=== PATIENT | male | born 1950 | race Caucasian/White ===

== ENCOUNTER 2023-05-09 14:00 | Outpatient (CLI) | payer MEDICARE, BC, SELFPAY | END 2023-05-09 14:01 | disposition home or self-care (01) | LOC: NFLDREF 05-15 10:21 | PROVIDERS: PCP Family Medicine; Referring Provider Family Medicine; Visit Provider Orthopaedic Surgery Sports Medicine | DX: M25.561 Pain in right knee (principal); M17.11 Unilateral primary osteoarthritis, right knee; Z96.652 Presence of left artificial knee joint; M21.41 Flat foot [pes planus] (acquired), right foot | CPT/HCPCS: 86039; 86140; 86200; 86431 ==

== ENCOUNTER 2023-06-20 08:46 | Outpatient (CLI) | payer MEDICARE, BC, SELFPAY ==
--- NOTE | 2023-06-20 09:00 | CRLHL7_ITS ---
For Patients: As a result of the Century Cures Act, medical imaging exams and procedure reports are released immediately into your electronic medical record. You may view this report before your referring provider. If you have questions, please contact your health care provider. INDICATION: LEFT KNEE PAIN. HX LEFT KNEE ARTHROPLASTY RT TKA SCHEDULED FOR 08-05-2023 TECHNIQUE: 27.2 mCi [id number] IV administered. Immediate, blood pool and delayed imaging of the kidneys performed. COMPARISON: 05/09/2023 and 12/11/2018 plain films FINDINGS: There is photopenia from left total knee arthroplasty. Mild physiologic stress uptake about the femoral and tibial components without evidence of loosening or infection. Degenerative uptake about the medial and patellofemoral compartments of the right knee. Additional degenerative uptake about the proximal tibia/fibula articulation on the right. Incidental focus of uptake within the right proximal tibial diaphysis at the lateral aspect. No radiographic correlate of this finding. IMPRESSION: The left total knee arthroplasty is intact without fracture, loosening or infection. Medial and patellofemoral compartment degenerative uptake right knee. Dictated by Jose Castellon MD @ 06/20/2023 1:38:50 PM (Electronically Signed)
== END 2023-06-20 08:47 | disposition home or self-care (01) ==
PROVIDERS: PCP Family Medicine; Visit Provider Orthopaedic Surgery Sports Medicine
DX: M25.562 Pain in left knee (principal); Z96.652 Presence of left artificial knee joint
CPT/HCPCS: 78315; A9503

== ENCOUNTER 2023-08-05 06:58 | Day surgery (SDC) | payer MEDICARE, BC, SELFPAY ==
[2023-08-05] VITALS (26 sets, daily range): BP systolic 101–122; BP diastolic 57–80; PULSE 49–77; RESP 12–18; TEMP 36–36.9; O2SAT 95–99; BMI 34.4
--- OUTSIDE RECORDS SUMMARY | 2023-08-05 07:01 | XMS_ITS | Continuity of Care Document ---
Author Name Unknown Organization [facility] Address [address] [place] [address] Phone Care Team Providers Care Transition Teacher Name Role Phone Sesar Rodgers MD Unavailable Unavailable Allergies, Adverse Reactions, Alerts Substance Reaction Status Criticality No Known Allergies Active No Inform ation Medications Medication Instructions Dosage Effective Dates (start - stop) Status Comments LISINOPRIL (unknown strength) Not Available - Active Procedures Procedure Date Office/Outpatient Visit,Est, Mod 2022 Office/Outpatient Visit,Est, Low 2021 Postop Followup Visit PSF, Lumbar - PA PSF - Additional Level(s) - PA 22 Lami, Facetectomy/Foraminotomy, Lumbar ( Stenosis) Reinsertion of Instrumentation - PA PSF, Lumbar PSF - Additional Level(s) Lami, Facetectomy/Foraminotomy, Lumbar ( Stenosis) Reinsertion of Instrumentation Allograft, Morcelized, and/or BMP Office/Outpatient Visit,Est, Mod 2021 Office/Outpatient Visit,Est, Mod 2020 Office/Outpatient Visit,Est, Mod 2020 Office/Outpatient Visit,Est, Mod 2020 Postop Followup Visit PSF, Lumbar - PA PSF - Additional Level(s) - PA 21 Lami, Facetectomy/Foraminotomy, Lumbar ( Stenosis) Lami, Facetectomy/Foraminotomy - Additio nal Level(s) - PA Posterior Instrumentation, 3-6 Segments - PA PSF, Lumbar PSF - Additional Level(s) Lami, Facetectomy/Foraminotomy, Lumbar ( Stenosis) Lami, Facetectomy/Foraminotomy - Additio nal Level(s) Posterior Instrumentation, 3-6 Segments Office/Outpatient Visit,[facility], [facility] 2020 Office/Outpatient Visit,[facility], Mod 2014 Advance Directives Directive Yes / No Effective Date File Name No Information Encounters Encounter Description Practice Location Reason(s) For Visit Diagnoses Date Provider Providers Copied on Encounter Office/Outpa tient Visit,Est, Mod [facility], [address], [place], [place], [id number] , [place] tel:[phone] [facility] Arthrodesis status 3 Ana Maria Kaba. [facility] [place], [address] [place] [address], [id number], [place]. tel:[phone] Referring Provider: Cory Long, [facility] [address] [place] [address], [address]. tel:[phone] Office/Outpa tient Visit,Est, Low [facility], [address], [facility] [place], [id number] , [place] tel:[phone] [facility] Arthrodesis status 2 Ana Maria Kaba. [facility] [place], [address] [place] [address], [id number], [place]. tel:[phone] Referring Provider: Cory Long, [facility] [address] [place], [address]. tel:[phone] [facility], [address], [place], [id number] , [place] [phone] [facility] Encounter for other specified surgical aftercare 2 Jovany Ballesteros. [facility] [place], [address], [address], [place]. tel:[phone] Referring Provider: Cory Long, [facility] [address] [facility], [place], [address]. tel:[phone] [facility], [address], [place], [place], [id number] , [place] tel:[phone] [facility] No Information 2 Jovany Ballesteros. [facility] [place], [address] [facility] [address], [place], [address], [place]. tel:[phone] Referring Provider: Cory Long, [facility] [address] [facility], [place], [address]. tel:[phone] [facility], [address], [place], [place], [id number] , [place] tel:[phone] [facility] No Information 2 Ana Maria Kaba. [facility] [place], [address] [place], [address], [id number], [place]. tel:[phone] Referring Provider: Cory Long, [facility] [address] [facility], [place], [address]. tel:[phone] Office/Outpa tient Visit,Est, Mod [facility], [address], [place], [place], [id number] , [place] tel:[phone] [facility] Spinal stenosis, lumbar region with neurogenic claudication 2 Ana Maria Kaab. [facility] [place], [address] [place], [address], [id number], [place]. tel:[phone] Referring Provider: Cory Long, [facility] [address] [facility], [place], [address]. tel:[phone] Office/Outpa tient Visit,Est, Mod [facility], [address], [place], [place], [id number] , [place] tel: [phone] [facility] Arthrodesis statusSpinal stenosis, lumbar region with neurogenic claudication 1 Ana Maria Sesar. [facility], [facility] [address], [place], [place], [id number], [place]. [phone] Referring Provider: Cory Long, [facility] [address], [place], [address]. [phone] Office/Outpa tient Visit,Est, Mod [facility], [address], [place], [place], [id number] , [place] tel: [phone] [facility] Arthrodesis status 1 Ana Maria Kaba. [facility], [address] [place], [address], [place], [place], [id number], [place]. [phone] Referring Provider: Cory Long, [facility] [address], [place], [address]. [phone] Office/Outpa tient Visit,Est, Mod [facility], [address], [place], [id number] , [place] tel: [phone] [facility] No Information 1 Ana Maria Sesar. [facility] [place], [facility] [address], [facility] [address], [place], [place], [id number], [place]. tel:[phone] Referring Provider: Cory Long, [facility] [address], [place], [address]. [phone] [facility], [address], [place], [id number] , [place] tel: [phone] [facility] Arthrodesis status 1 No Information Referring Provider: Cory Long, [facility] [address], [place], [address]. tel:[phone] [facility], [address], [place], [id number] , [place] tel: [phone] [facility] No Information No Information Referring Provider: Cory Long, [facility] [address] [facility], [place], [address]. tel:[phone] [facility], [address], [place], [place], [id number] , [place] tel:[phone] [facility] No Information Ana Maria Kaba. [facility] [place], [address] [place] [address], [address], [id number], [place]. tel:[phone] Referring Provider: Cory Long, [facility] [address] [facility], [place], [address]. tel:[phone] Office/Outpa tient Visit,New, Mod [facility], [address], [place], [place], [id number] , [place] tel:[phone] [facility] No Information 1 Ana Maria Kaba. [facility] [place], [address] [place] [address], [address], [id number], [place]. tel:[phone] Referring Provider: Cory Long, [facility] [address] [facility], [place], [address]. tel:[phone] Office/Outpa tient Visit,New, Mod [facility], [address], [place], [place], [id number] , [place] tel:[phone] [facility] Spondylosis of unspecified site [facility] of [facility] 5 Ana Maria Kaba. [facility] [place], [address] [place] [address], [address], [id number], [place]. tel:[phone] Referring Provider: Henrry Joseph, [facility] [address] [facility], [place], [address]. tel:[phone] Family History Family Member Type Diagnosis Age At Onset Problem (finding) Payers Payer name Insurance type Covered [place] [id number] Medicare [facility] [id number] 1 Social History Type Description Quantity Date Captured Comments Alcohol Use Details Unknown Caffeine Use Details Unknown Tobacco Use Status No Information Smoking Status No Information Sex Male Vital Signs Date / Time: Height Weight BMI Pulse Rate Blood Pressure Temperature Respiratory Rate Body Surface Area Head Circumference Head Circ. Percentile Wt./Matias. Percentile BMI percentile Pulse Ox Inhaled Ox 3:26 PM 66.50 in 97.522 kg (215.00 lbs) 34.1 8 kg/m eter (2) Chief Complaint And Reason For Visit No Information Reason For Referral Reason For Referral No Information Plan Of Treatment Date Type Action Status Future Order: Radiology Order F/ E Lumbar (F/ELumb), Ordered on: Ordered Future Order: Radiology Order Pe lvis 1 Or 2 Views (pelvis), Ordered on: Ordered Future Order: Radiology Order AP Lateral Lumbar (APLatLumb), Ordered on: Ordered History Of Present Illness Encounter Date Complaint History Of Prese nt Illness No Information Functional Status Date Functional Assessmen t No Information Instructions Date Instruction Additional Infor mation Weight Management Related to Ove rweight Assessments Type Assessment Date No Information Patient Care Teams Name Effective Dates (start - stop) Status Members No Information
--- OUTSIDE RECORDS SUMMARY | 2023-08-05 07:02 | XMS_ITS | Continuity of Care Document ---
Author Name Unknown Organization [facility] Address [address] [place] [address] Phone Care Team Providers Care Lump Machine Operator Name Role Phone Sesar Rodgers MD Unavailable [...] nal Level(s) Posterior Instrumentation, 3-6 Segments Office/Outpatient Visit,[facility], [facility] [place] Office/Outpatient Visit,[facility], Mod 2014 Advance Directives Directive Yes / No Effective Date File Name No Information Encounters Encounter Description Practice Location Reason(s) For Visit Diagnoses Date Provider Providers Copied on Encounter Office/Outpa tient Visit,Est, Mod [facility], [address], [place], [place], [id number] , [place] tel:[phone] [facility] Arthrodesis status 3 Ana Maria Kaba. [facility] [place], [address] [place] [address], [id number], [place]. tel:[phone] Referring Provider: Cory Long, [facility] [address] [place] [address], [address]. tel:[phone] Office/Outpa tient Visit,Est, Low [facility], [address], [facility], [id number] , [place] tel:[phone] [facility] Arthrodesis status 2 Ana Maria Kaba. [facility] [place], [address] [place] [address], [id number], [place]. tel:[phone] Referring Provider: Cory Long, [facility] [address] [place], [address]. tel:[phone] [facility], [address], [place], [id number] , [place] [phone] [facility] Encounter for other specified surgical aftercare 2 Jovany Ballesteros. [facility] [place], [address], [address], [place]. tel:[phone] Referring Provider: Cory Long, [facility] [address] [facility], [place], [address]. tel:[phone] [facility], [address], [place], [place], [id number] , [place] tel:[phone] [facility] No Information 2 Jovany Ballesteros. [facility] [place], [address] [facility] [address], [place], [address], [place]. tel:[phone] Referring Provider: Cory Long, [facility] [address] [facility], [place], [address]. tel:[phone] [facility], [address], [place], [place], [id number] , [place] tel:[phone] [facility] No Information 2 Ana Maria Kaba. [facility] [place], [address] [place], [address], [id number], [place]. tel:[phone] Referring Provider: Cory Long, [facility] [address] [facility], [place], [address]. tel:[phone] Office/Outpa tient Visit,Est, Mod [facility], [address], [place], [place], [id number] , [place] tel:[phone] [facility] Spinal stenosis, lumbar region with neurogenic claudication 2 Ana Maria Kaba. [facility] [place], [address] [place], [address], [id number], [place]. tel:[phone] Referring Provider: Cory Long, [facility] [address] [facility], [place], [address]. tel:[phone] Office/Outpa tient Visit,Est, Mod [facility], [address], [place], [place], [id number] , [place] tel: [phone] [facility] Arthrodesis statusSpinal stenosis, lumbar region with neurogenic claudication 1 Ana Maria Sesar. [facility], [facility] [address], [address], [place], [place], [id number], [place]. [phone] Referring Provider: Cory Long, [facility] [address], [place], [address]. [phone] Office/Outpa tient Visit,Est, Mod [facility], [address], [place], [id number] , [place] tel: [phone] [facility] Arthrodesis status 1 Ana Maria Kaba. [facility], [address] [place], [address], [place], [place], [id number], [place]. [phone] Referring Provider: Cory Long, [facility] [address], [place], [address]. [phone] Office/Outpa tient Visit,Est, Mod [facility], [address], [place], [id number] , [place] tel: [phone] [facility] No Information 1 Ana Maria Sesar. [facility] [place], [facility] [address], [facility] [address], [place], [place], [id number], [place]. tel:[phone] Referring Provider: Cory Long, [facility] [address], [place], [address]. tel:[phone] [facility], [address], [place], [id number] , [place] tel: [phone] [facility] Arthrodesis status 1 No Information Referring Provider: Cory Long, [facility] [address], [place], [address]. tel:[phone] [facility], [address], [place], [id number] , [place] tel: [phone] [facility] No Information No Information Referring Provider: Cory Long, [facility] [address] [facility], [place], [address]. tel:[phone] [facility], [address], [place], [place], [id number] , [place] tel:[phone] [facility] No Information Ana Maria Kaba. [facility] [place], [address] [place] [address], [address], [id number], [place]. tel:[phone] Referring Provider: Cory Long, [facility] [address] [facility], [place], [address]. tel:[phone] Office/Outpa tient Visit,New, Mod [facility], [address], [place], [place], [id number] , [place] tel:[phone] [facility] No Information 1 Ana Maria Kaba. [facility] [place], [address] [place] [address], [address], [id number], [place]. tel:[phone] Referring Provider: Cory Long, [facility] [address] [facility], [place], [address]. tel:[phone] Office/Outpa tient Visit,New, Mod [facility], [address], [place], [place], [id number] , [place] tel:[phone] [facility] Spondylosis of unspecified site [facility] of [facility] 5 Ana Maria Kaba. [facility] [place], [address] [place] [address], [address], [id number], [place]. tel:[phone] Referring Provider: Henrry Joseph, [facility] [address] [facility], [place], [address]. tel:[phone] Family History Family Member Type Diagnosis Age At Onset Problem (finding) Payers Payer name Insurance type Covered [place] [id number] Medicare [facility] [id number] 1 Social History Type Description Quantity Date [...]
--- NOTE | 2023-08-05 07:39 | W.PM.H&PU ---
History & Physical Update History & Physical Update H&P Reviewed and patient assessed: No changes noted
--- NOTE | 2023-08-05 07:41 | CRLHL7_ITS ---
For Patients: As a result of the Cures Act, medical imaging exams and procedure reports are released immediately into your electronic medical record. You may view this report before your referring provider. If you have questions, please contact your health care provider. Indication: post op Technique: Two views right knee Findings/Impression: Hardware from a right total knee arthroplasty is in satisfactory position. Bone alignment is normal. No sign of acute fracture. Postop changes are within normal limits. Dictated by Jose Castellon MD @ 08/05/2023 1:33:17 PM (Electronically Signed)
[2023-08-05] MEDS: ACETAMINOPHEN 500 MG TABLET 1000 MG PO ×3 (07:42→19:28)
[2023-08-05] MEDS: SODIUM CHLORIDE 0.9 % (FLUSH) 10 ML SYRINGE IVF (07:42)
[2023-08-05] MEDS: OXYCODONE (CR) 10 MG TAB.ER.12H PO (07:42)
[2023-08-05] MEDS: LACTATED RINGERS 1000 ML 1,000 ML 100 ML IV (07:42)
--- NOTE | 2023-08-05 08:30 | SUR.PREOP ---
TIME?OUT:?0908 PT/RN/MDA?VERIFICATION?OF?SURGICAL?SITE,?PROCEDURE,?AND?CONSENT OBTAINED?PRIOR?TO?INVASIVE?PROCEDURE.
[2023-08-05] MEDS: fentaNYL 100 MCG/2 ML inj IVP (09:08)
[2023-08-05] MEDS: MIDAZOLAM HCL 1 MG/ML inj IVP (09:08)
--- NOTE | 2023-08-05 09:15 | SUR.PREOP ---
TIME?OUT:?0908 PT/RN/MDA?VERIFICATION?OF?SURGICAL?SITE,?PROCEDURE,?AND?CONSENT OBTAINED?PRIOR?TO?INVASIVE?PROCEDURE.
[2023-08-05] MEDS: TRANEXAMIC ACID 100 MG/ML INJ 1000 MG IV (10:28)
[2023-08-05] MEDS: CEFAZOLIN 2 GM in 0.9 % SODIUM CHLORIDE Mini-bag 100 ML IVPB ×3 (10:28→22:59)
--- NOTE | 2023-08-05 11:12 | W.ANESCHARGE ---
Anesthesia Charges Start Date/Time Anesthesia Start Date: 08/05/23 Anesthesia Start Time: 10:01 Stop Date/Time Anesthesia Stop Date: 08/05/23 Anesthesia Stop Time: 12:10 Summary Extremes of Age - Over 70 or under 1: MDA
--- NOTE | 2023-08-05 11:15 | W.PM.NB ---
Nerve Block Nerve Block Time Seen by Provider: 09:08 Date Seen: 08/05/23 Type of block requested by surgeon for post-operative analgesia: adductor canal Side: right Time out performed: Yes Verification of patient name: Yes Verification of date of : Yes Site marking: site marked Name of person performing procedure: Mario Alberto Continuous monitoring Was continuous monitoring of O2 sat, B/P, groundwater monitoring technician, recorded every 15 minutes?: Yes Procedure Checklist: sterile prep, needles and gloves Ultrasound guided. Images saved: Yes Medications given in 5ml increments after negative aspiration: Ropivicaine %: 0.5 mL: 20 Needle gauge: 20 Decadron (mg): 10 Precedex (mcg): 25 Patient tolerated procedure well: Yes Additional comments: Needle noted adjacent to nerve Block Charges Block Charge (with Pro Fee): Femoral Nerve Use of Ultrasound Machine for Block: Yes- US Guidance/pain block
--- NOTE | 2023-08-05 11:16 | W.PM.NB ---
Nerve Block Nerve Block Time Seen by Provider: 09:08 Date Seen: 08/05/23 Type of block requested by surgeon for post-operative analgesia: geniculars Side: right Time out performed: Yes Verification of patient name: Yes Verification of date of : Yes Site marking: site marked Name of person performing procedure: Mario Alberto Continuous monitoring Was continuous monitoring of O2 sat, B/P, playground monitor, recorded every 15 minutes?: Yes Procedure Checklist: sterile prep, needles and gloves Medications given in 5ml increments after negative aspiration: Ropivicaine %: 0.5 mL: 9 Needle gauge: 25 Patient tolerated procedure well: Yes Block Charges Block Charge (with Pro Fee): Genicular Nerve Block Use of Ultrasound Machine for Block: No
--- NOTE | 2023-08-05 11:28 | P.ORPRC_ITS ---
Procedure Note Date of procedure: 08/05/23 Procedure: PREOPERATIVE DIAGNOSIS: 1. Right knee osteoarthritis, primary, severe POSTOPERATIVE DIAGNOSIS: 1. Right knee osteoarthritis, primary, severe PROCEDURE: 1. Right total knee arthroplasty SURGEON: Frank Em MD. SOLID WASTE COLLECTOR: Kb ELI - Of note, a skilled commissary assistant was critical for this case to aid in patient positioning, tissue retraction, limb manipulation/positioning, and closure. ANESTHESIA: Spinal anesthetic IMPLANTS: DePuy J&J all cemented TKA - Attune PS femur size 6 regular, size 6 tibia, 5 poly spacer, 38 mm patella TOURNIQUET: 90 min at 300 torr EBL: 50 ml COMPLICATIONS: None evident INDICATIONS: The patient is a pleasant 73-year-old male who has experienced severe right knee pain and difficulty bearing weight. Workup included x-rays which revealed severe osteoarthrosis in the knee. Given the deformity, the dysfunction, and the pain, as well as the failure of nonoperative management, recommendation was made for surgery. FINDINGS: Large effusion upon entering joint. Full-thickness chondral loss diffusely throughout the medial and patellofemoral compartments. Lateral compartment to a lesser degree. No significant loose bodies. Osteophytes were noted around all 3 compartments. DESCRIPTION OF PROCEDURE: Following a thorough discussion of risks, benefits, and alternatives consent was obtained and the right knee was marked. The patient was brought to the operating room and placed supine on the operating table. Induction of anesthesia was undertaken. 2 g IV Ancef and 1 g tranexamic acid was administered within 1 hr of incision preoperatively. Proper time-out was performed identifying proper patient, site, procedure. The operative extremity was prepped and draped in the appropriate sterile fashion using ChloraPrep after the patient was positioned supine with all bony prominences well padded. A longitudinal, anterior, midline skin incision was made starting approximately 3cm proximal to the superior pole of the patella and advanced distal to the tibial tubercle. A median parapatellar arthrotomy was created. A medial subperiosteal sleeve was created with knife, hernandez elevator and curved osteotome. The retropatellar fatpad was resected and the synovium in the suprapatellar pouch excised to visualize the anterior femoral cortex. Femoral preparation was performed via an intramedullary guide. Step drill allowed access into the femoral canal. The distal cutting guide was placed with 5? of valgus and 10 mm cut on the distal femur. Femur was sized using a anterior referencing guide in 3? of external rotation. This found have a best fit with the sizing noted above. The 4 in 1 cutting block was then placed, and the distal femur shaped accordingly. The box cut was then created and the trial implant inserted to confirm appropriate fit. We turned our attention to the proximal tibia. Extramedullary guide was utilized for cutting with the goal of being 90 degree cut from the mechanical axis of the tibia in the varus/valgus plane utilizing tibial crest as the primary alignment. Initially a 3 mm resection was performed from the medial tibial plateau. An additional 2 mm did require resection. Ultimately, balancing was achieved in both flexion and extension in both varus and valgus. The knee was able to achieve full extension as well comfortably. The patella was initially measured and found have a thickness of 21 mm. It was resected back to approximately 14.5 mm. It was sized to be a best fit with as noted above. This was drilled, trial placed. All trials were placed and found to have an excellent stability and balance. At this stage, trial implants were removed, the knee was thoroughly irrigated with normal saline, and the cement was mixed. After irrigation, the knee was th oroughly dried, and cement placed, with the real tibial and femoral implants placed along with the patella. Trial poly spacer was placed and confirmed to have excellent range of motion and full extension, and the real poly spacer opened and inserted. All extra cement was removed, and a 3 min Betadine soak performed. Finally, a final irrigation round with normal saline was performed. Closure performed with 0 Vicryl and #0 Stratafix for the quad tendon/retinaculum. 2-0 Vicryl for the subcutaneous and 4-0 Stratafix for subcuticular closure. Dressings were applied and the patient was awoken from anesthesia after the tourniquet deflated and transferred the PACU in stable condition. A skilled commissary assistant was critical for this case to aid in patient positioning, tissue retraction, bone exposure, limb manipulation/positioning, patient safety, and closure. PLAN: 1. Weight bear as tolerated operative extremity. 2. 23 hr perioperative antibiotics. 3. Ice. 4. PT/OT consults for ambulation assistance/mobility education. 5. Social work consult for discharge planning. 6. DVT prophylaxis with at SCDs, Jesus Hose, and aspirin twice daily.
--- NOTE | 2023-08-05 12:10 | W.ANESCHARGE ---
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
[2023-08-05] MEDS: LACTATED RINGERS 1000 ML 1,000 ML 75 ML IV (13:19)
[2023-08-05] MEDS: 0.9 % SODIUM CHLORIDE 500 ML IV (18:11)
[2023-08-05] MEDS: OXYCODONE 5 MG TABLET PO (18:13)
--- NOTE | 2023-08-05 18:43 | PM.IMCN1 ---
Date of Consult Patient: Meli Patient Consult date: 08/05/23 Requesting Physician: Orthopedics Primary Care Provider: Cory Small MD Consult Narrative Narrative: Stanley Melvin is a 73 year old male seen following right knee arthroplasty for management of medical problems. Consult requested by Dr. Em. He performed the procedure today without complications. Patient reports doing well following surgery. No significant problems with pain control. No nausea. He is otherwise feeling well. Preoperatively was doing well. No significant medical problems were identified on preop physical. He was incidentally noted to have mild anemia and mild lymphopenia at that time. No previous diagnosis of a blood disorder. Review of Systems Narrative: He reports generally doing well preoperatively. No problems with previous surgeries, anesthesia bleeding or clotting disorders. [facility] Medical History (Updated 08/05/23 @ 18:50 by Ferdy Dominguez MD) Lymphopenia ?D72.810 - Lymphocytopenia (ICD-10) Unspecified essential hypertension ?I10 - Essential (primary) hypertension (ICD-10) Prediabetes ?R73.03 - Prediabetes (ICD-10) PONV (postoperative nausea and vomiting) ?R11.2 - Nausea with vomiting, unspecified (ICD-10) ?Z98.890 - Other specified postprocedural states (ICD-10) Obesity ?E66.9 - Obesity, unspecified (ICD-10) Motion sickness ?T75.3XXA - Motion sickness, initial encounter (ICD-10) Mixed hyperlipidemia ?E78.2 - Mixed hyperlipidemia (ICD-10) Leukopenia ?D72.819 - Decreased white blood cell count, unspecified (ICD-10) GERD (gastroesophageal reflux disease) ?K21.9 - Gastro-esophageal reflux disease without esophagitis (ICD-10) BPH (benign prostatic hyperplasia) ?N40.0 - Benign prostatic hyperplasia without lower urinary tract symptoms (ICD-10) Benign paroxysmal positional vertigo ?H81.10 - Benign paroxysmal vertigo, unspecified ear (ICD-10) Anemia ?D64.9 - Anemia, unspecified (ICD-10) Right ankle sprain ?S93.401A - Sprain of unspecified ligament of right ankle, initial encounter (ICD-10) Surgical History (Updated 08/05/23 @ 18:50 by Fredy Dominguez MD) History of arthroplasty of right knee ?Z96.651 - Presence of right artificial knee joint (ICD-10) Hx of hernia repair ?Z98.890 - Other specified postprocedural states (ICD-10) ?Z87.19 - Personal history of other diseases of the digestive system (ICD-10) History of bunionectomy ?Z98.890 - Other specified postprocedural states (ICD-10) History of cholecystectomy ?Z90.49 - Acquired absence of other specified parts of digestive tract (ICD-10) History of appendectomy ?Z90.49 - Acquired absence of other specified parts of digestive tract (ICD-10) H/O left knee surgery (~1990) ?Z98.890 - Other specified postprocedural states (ICD-10) S/P left knee arthroscopy (09/11/00) ?Z98.890 - Other specified postprocedural states (ICD-10) S/P surgical manipulation of knee joint (01/31/06) ?Z98.890 - Other specified postprocedural states (ICD-10) History of carpal tunnel surgery of left wrist (05/07/18) ?Z98.890 - Other specified postprocedural states (ICD-10) S/P trigger finger release ?Z98.890 - Other specified postprocedural states (ICD-10) History of lumbar fusion (11/03/20) ?Z98.1 - Arthrodesis status (ICD-10) 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 He does have to walk some stairs to get into his house. Once on the upper level he can get around without stairs. He does not smoke. He occasionally drinks alcohol. What is your current living situation?: I presently have a place to live Problems where you live: no known problems In the past 12 months, utilities in danger of being shut off: no In past 12 months, lack of transportation kept you from medical appts, meetings, work, or getting things needed for daily living: no In the past 12 mos, have been you worried that your food would run out before you had money to buy more?: never true In the past 12 mos, the food you bought just didn't last and you didn't have money to buy more?: never true Highest level of school completed/degree received: Associate degree: occupational, technical, vocational program Smoking Status: Never smoker Do you use any of these nicotine containing products: None Second hand tobacco smoke exposure: No How often do you have a drink containing alcohol: 2-4 times a month AUDIT-C Alcohol total score: 2 Non-prescribed substance use: denies use Caffeine: Yes (coffee) How often does anyone, including family, friends and others, physically hurt you: never How often does anyone, including family, friends and others, insult or talk down to you: never How often does anyone, including family, friends and others, threaten you with harm: never How often does anyone, including family, friends and others, scream or curse at you: never service: Yes Meds Home Medications and Allergies Home Medications Medication Instructions Recorded Confirmed Type lisinopril 10 1 tab PO DAILY 05/09/23 08/05/23 History mg-hydrochlorothiazide 12.5 mg tablet ascorbic acid (vitamin C) 500 mg 0.5 g PO DAILY 08/05/23 08/05/23 History tablet iron,carbonyl 65 mg-vitamin C 125 1 tab PO DAILY 08/05/23 08/05/23 History mg tablet,delayed release (Vitron-C) Home Medication Comments: Did not take lisinopril hydrochlorothiazide today, the day of surgery Allergies Allergy/AdvReac Type Severity Reaction Status Date / Time No Known Drug Allergies Allergy Verified 08/05/23 07:21 Exam Narrative: Exam Narrative: he is alert and appears in no distress. Oropharynx is normal. Neck is supple without mass or adenopathy. Respirations are clear to auscultation. Cardiovascular: S1, S2, regular rate and rhythm. No murmur gallop or rub. Abdomen: Bowel sounds active. Abdomen is soft without tenderness or mass. Extremities with intact pulses sensation and strength bilaterally. No edema Const: Vital Signs, click to edit/add: Vital Signs - 24 hr 08/05/23 07:12 08/05/23 09:15 08/05/23 09:20 Temperature 98.5 F Pulse Rate 62 56 L 55 L Pulse Rate [Pulse Oximeter] Respiratory Rate 18 13 14 Blood Pressure 117/61 108/65 107/66 Blood Pressure [Le ft Arm] Pulse Oximetry 96 99 99 Oxygen Delivery Me thod Room Air 08/05/23 09:25 08/05/23 09:30 08/05/23 09:45 Temperature Pulse Rate 52 L 54 L 55 L Pulse Rate [Pulse Oximeter] Respiratory Rate 14 12 13 Blood Pressure 101/70 106/62 106/66 Blood Pressure [Le ft Arm] Pulse Oximetry 99 98 97 Oxygen Delivery Me thod 08/05/23 12:05 08/05/23 12:10 08/05/23 12:15 Temperature 97.0 F L Pulse Rate 59 L 57 L 53 L Pulse Rate [Pulse Oximeter] Respiratory Rate 18 16 16 Blood Pressure 106/66 107/62 107/65 Blood Pressure [Le ft Arm] Pulse Oximetry 95 95 95 Oxygen Delivery Me thod Room Air 08/05/23 12:20 08/05/23 12:25 08/05/23 12:30 Temperature Pulse Rate 51 L 54 L 53 L Pulse Rate [Pulse Oximeter] Respiratory Rate 14 16 14 Blood Pressure 101/64 105/77 105/62 Blood Pressure [Le ft Arm] Pulse Oximetry 95 98 Oxygen Delivery Me thod 08/05/23 12:35 08/05/23 13:01 08/05/23 13:07 Temperature 96.8 F L 96.8 F L 96.8 F L Pulse Rate 49 L 49 L Pulse Rate [Pulse Oximeter] 49 L Respiratory Rate 12 14 14 Blood Pressure 105/72 Blood Pressure [Le ft Arm] 113/57 L 113/57 L Pulse Oximetry 98 99 Oxygen Delivery Me thod Room Air Room Air 08/05/23 13:15 08/05/23 13:45 08/05/23 14:15 Temperature 97.4 F L 97.4 F L Pulse Rate Pulse Rate [Pulse Oximeter] 55 L 59 L 60 Respiratory Rate 16 16 16 Blood Pressure Blood Pressure [Le ft Arm] 109/62 110/64 109/80 Pulse Oximetry 97 97 98 Oxygen Delivery Me thod Room Air Room Air Room Air 08/05/23 14:45 08/05/23 15:00 Temperature 96.9 F L Pulse Rate Pulse Rate [Pulse Oximeter] 66 Respiratory Rate 16 Blood Pressure Blood Pressure [Le ft Arm] 122/60 Pulse Oximetry 98 98 Oxygen Delivery Me thod Room Air Assessment and Plan Assessment and plan (1) History of arthroplasty of right knee: Problem comment: Dr. Em 08/05/2023 Status: Acute (2) Hypertension: Problem comment: resume blood pressure medicines as blood pressure requires or after discharge Status: Acute (3) Lymphopenia: Problem comment: outpatient follow-up in 1 month Status: Acute (4) Anemia: Problem comment: outpatient follow-up in 1 month Status: Acute Plan patient is admitted to the hospital for right total knee arthroplasty and management after surgery including therapy and pain control. Currently doing fairly well. Will monitor for complications. Will resume blood pressure medications as required.
--- NOTE | 2023-08-05 20:03 | PC.NURSE ---
End of shift-- Pleasant and cooperative, alert and oriented patient arrived from PACU at 1245 today. VSS and pt is afebrile. SPO2 maintained >94% on RA. Pain appears well managed at this time with Tylenol and Oxycodone once, however pt remained numb most of the evening. Dressing to right knee is C/D/I and CMS is WNL. Cryocuff in place. LS CTA. He denied nausea and ate 100% of a regular dinner without difficulty. Pt has not voided yet post op. He denied the need to urinate and 500ml bolus NS was hung per MD order. was at bedside and appears loving and supportive. Report to oncoming shift and all questions were answered.
[2023-08-05] MEDS: SENNOSIDES 1 TAB TABLET 2 TAB PO (21:21)
[2023-08-05] MEDS: ASPIRIN 81 MG TABLET EC PO (21:21)
[2023-08-05] MEDS: LORazepam 0.5 MG TABLET PO (22:59)
[2023-08-06] MEDS: ACETAMINOPHEN 500 MG TABLET 1000 MG PO ×2 (00:41→07:45)
[2023-08-06 03:30] VITALS: BP 137/92; PULSE 65; RESP 16; TEMP 36.3; O2SAT 97
[2023-08-06] MEDS: OXYCODONE 5 MG TABLET PO ×2 (03:40→07:45)
[2023-08-06] MEDS: CEFAZOLIN 2 GM in 0.9 % SODIUM CHLORIDE Mini-bag 100 ML IVPB (06:37)
[2023-08-06 06:51] LABS: Basophils Percent Auto 0.2 % (0.0-3.0); Hematocrit 34.7 % (37.0-53.0); Hemoglobin* 11.9 gm/dL (13.5-17.5); Immature Granulocytes Pct Auto 0.4 %; Lymphocytes Percent Auto 4.2 % (20-44); Mean Corpuscular HGB Conc 34 gm/dL (32-36); Mean Corpuscular Hemoglobin 33 pg (26-34); Mean Corpuscular Volume 96 fL (80-100); Monocytes Percent Auto 4.6 % (0.0-11.0); Neutrophils Percent Auto 90.6 % (42.0-72.0); Platelet Count* 170 K/uL (140-440); RDW Coefficient of Variation % 14.6 % (11.5-15.5); Red Blood Count 3.62 m/uL (4.30-5.90); White Blood Count* 13.27 K/uL (4.50-11.00)
[2023-08-06 06:55] LABS: Slide Review Reflex No
[2023-08-06 07:00] VITALS: BP 138/80; PULSE 62; RESP 20; TEMP 36.4; O2SAT 97
[2023-08-06 07:12] LABS: Potassium* 4.2 mmol/L (3.6-5.1); Sodium* 135 mmol/L (135-149)
[2023-08-06 07:15] LABS: Creatinine* 0.8 mg/dL (0.5-1.5); Est. Creatinine Clearance* 59.37; Estimated Glomerular Filt Rate 93 ml/min
[2023-08-06 07:16] LABS: Blood Urea Nitrogen* 17 mg/dL (7-30)
--- NOTE | 2023-08-06 07:40 | PC.NURSE ---
Nursing note, [id number]: Pt A&Ox3, pleasant. Vitals stable, last BP slightly elevated but obtained after pt returned from bathroom. Dressing to R knee CDI, cryo cuff in place. PRN Oxycodone admin and scheduled Tylenol for pain, pt states manageable level. IV saline locked. Drinking fluids, voiding. Had walk in hallway prior to bed. Pt reports he doesn't sleep well at baseline, received PRN Ativan by evening RN, pt reports minimally effective but states he was able to doze off here and there. Pt has call light within reach and uses appropriately.
[2023-08-06] MEDS: SENNOSIDES 1 TAB TABLET 2 TAB PO (07:44)
[2023-08-06] MEDS: ASPIRIN 81 MG TABLET EC PO (07:45)
--- NOTE | 2023-08-06 10:19 | PM.ORPN ---
Subjective Subjective Date Seen: 08/06/23 Principal diagnosis: Status postop day 1 right total knee arthroplasty Interval history: Patient reports doing well. No acute events over night. Mentions some lower back discomfort where the spinal was placed. Pain managed with scheduled and PRN medications, ice. DVT prophylaxis: 81 mg aspirin by mouth twice daily, bilateral knee high Jesus stockings, SCDs, walking. Denies fevers, chills, aches, N/V, CP, SOB/CAMPA, or lightheadedness. Ortho Exam Narrative Exam Narrative: -Patient appears comfortable; no apparent acute distress -Alert and oriented times 3 -Operative knee mildly swollen; soft tissues supple; no ecchymosis; no erythematous streaking Warmth appropriate -Surgical dressing clean, dry, intact; no drainage -Bilateral calfs soft; no significant swelling, edema, tenderness, erythema, discoloration, warmth, or palpable cords -2+ DP/PT pulses, intact dermatomes and myotomes distally (5/5 strength) -lower back: No obvious ecchymosis, erythema, fluctuance. No obvious hematoma. Nontender to palpation Const Vital Signs, click to edit/add: Vital Signs - 24 hr 08/05/23 12:05 08/05/23 12:10 08/05/23 12:15 Temperature 97.0 F L Pulse Rate 59 L 57 L 53 L Pulse Rate [Pulse Oximeter] Respiratory Rate 18 16 16 Blood Pressure 106/66 107/62 107/65 Blood Pressure [Left Arm] Blood Pressure [Right Arm] Pulse Oximetry 95 95 95 Oxygen Delivery Method Room Air 08/05/23 12:20 08/05/23 12:25 08/05/23 12:30 Temperature Pulse Rate 51 L 54 L 53 L Pulse Rate [Pulse Oximeter] Respiratory Rate 14 16 14 Blood Pressure 101/64 105/77 105/62 Blood Pressure [Left Arm] Blood Pressure [Right Arm] Pulse Oximetry 95 98 Oxygen Delivery Method 08/05/23 12:35 08/05/23 13:01 08/05/23 13:07 Temperature 96.8 F L 96.8 F L 96.8 F L Pulse Rate 49 L 49 L Pulse Rate [Pulse Oximeter] 49 L Respiratory Rate 12 14 14 Blood Pressure 105/72 Blood Pressure [Left Arm] 113/57 L 113/57 L Blood Pressure [Right Arm] Pulse Oximetry 98 99 Oxygen Delivery Method Room Air Room Air 08/05/23 13:15 08/05/23 13:45 08/05/23 14:15 Temperature 97.4 F L 97.4 F L Pulse Rate Pulse Rate [Pulse Oximeter] 55 L 59 L 60 Respiratory Rate 16 16 16 Blood Pressure Blood Pressure [Left Arm] 109/62 110/64 109/80 Blood Pressure [Right Arm] Pulse Oximetry 97 97 98 Oxygen Delivery Method Room Air Room Air Room Air 08/05/23 14:45 08/05/23 15:00 08/05/23 16:00 Temperature 96.9 F L 97.6 F Pulse Rate Pulse Rate [Pulse Oximeter] 66 71 Respiratory Rate 16 16 Blood Pressure Blood Pressure [Left Arm] 122/60 120/71 Blood Pressure [Right Arm] Pulse Oximetry 98 98 96 Oxygen Delivery Method Room Air Room Air 08/05/23 17:00 08/05/23 18:00 08/05/23 19:29 Temperature 97.6 F 98 F Pulse Rate Pulse Rate [Pulse Oximeter] 66 75 77 Respiratory Rate 16 16 18 Blood Pressure Blood Pressure [Left Arm] 118/75 107/76 112/62 Blood Pressure [Right Arm] Pulse Oximetry 98 97 95 Oxygen Delivery Method Room Air Room Air Room Air 08/05/23 23:00 08/06/23 03:30 08/06/23 07:00 Temperature 97.5 F L 97.3 F L Pulse Rate Pulse Rate [Pulse Oximeter] 62 65 Respiratory Rate 16 16 Blood Pressure Blood Pressure [Left Arm] 111/59 L Blood Pressure [Right Arm] 137/92 H Pulse Oximetry 95 97 97 Oxygen Delivery Method Room Air Room Air 08/06/23 07:00 Temperature 97.6 F Pulse Rate Pulse Rate [Pulse Oximeter] 62 Respiratory Rate 20 Blood Pressure Blood Pressure [Left Arm] Blood Pressure [Right Arm] 138/80 Pulse Oximetry 97 Oxygen Delivery Method Room Air Assessment and Plan Assessment and plan (1) History of arthroplasty of right knee: Problem details: Dr. Em 08/05/2023 Status: Acute Plan - Complete 23 hour perioperative antibiotics. - PT/OT consult for education and assistance. - Social work consult for discharge planning - Prescribed analgesics as needed - DVT prophylaxis: 81 mg aspirin by mouth twice daily, bilateral knee high Jesus Hose stockings and SCDs - Anticipation is for discharge to home with spouse today, 08/06/2023 if the patient remains medically stable, pain is controlled, and they are safe with mobilization.
== END 2023-08-06 10:06 | disposition home or self-care (01) ==
LOC: OR 07:00 → MEDSURG 07:02
PROVIDERS: PCP Family Medicine; Visit Provider Orthopaedic Surgery Sports Medicine
PROC: (CPT 27447; principal; 2023-08-05 09:15)
DX: M17.11 Unilateral primary osteoarthritis, right knee (principal); G89.18 Other acute postprocedural pain; I10 Essential (primary) hypertension; D72.810 Lymphocytopenia; D64.9 Anemia, unspecified; M54.50 Low back pain, unspecified
CPT/HCPCS: 27447; 01402; 36415; 64447; 64454; 73560; 76942; 82565; 84132; 84295; 84520; 85025; 97110; 97116; 97161; 97165; 99100; A9270; C1776; J0690; J1100; J2250; J2704; J2795; J3010; J7120

== ENCOUNTER 2023-08-13 14:50 | Outpatient (CLI) | payer MEDICARE, BC, SELFPAY ==
--- OUTSIDE RECORDS SUMMARY | 2023-08-13 14:52 | XMS_ITS | Continuity of Care Document ---
Author Name Unknown Organization [facility] Address [address] [place] [address] Phone Care Team Providers Care Skiver Sock Linings Name Role Phone Sesar Rodgers MD Unavailable [...] nal Level(s) Posterior Instrumentation, 3-6 Segments Office/Outpatient Visit,[facility], [place] [facility] 2020 Office/Outpatient Visit,[facility], Mod 2014 Advance Directives Directive Yes / No Effective Date File Name No Information Encounters Encounter Description Practice Location Reason(s) For Visit Diagnoses Date Provider Providers Copied on Encounter Office/Outpa tient Visit,Est, Mod [facility], [address], [place], [place], [id number] , [place] tel:[phone] [facility] Arthrodesis status 3 Ana Maria Kaba. [facility], [address] [place] [address], [id number], [place]. tel:[phone] Referring Provider: Cory Long, [facility] [address] [place] [address], [address]. tel:[phone] Office/Outpa tient Visit,Est, Low [facility], [address], [facility], [place], [id number] , [place] tel:[phone] [facility] Arthrodesis status 2 Ana Maria Kaba. [facility], [address] [place] [address], [id number], [place]. tel:[phone] Referring Provider: Cory Long, [facility] [address] [place], [address]. tel:[phone] [facility], [address], [place], [place], [id number] , [place] [phone] [facility] Encounter for other specified surgical aftercare 2 Jovany Ballesteros. [facility], [address], [address], [place]. tel:[phone] Referring Provider: Cory Long, [employer] [address] [facility], [place], [address]. tel:[phone] [facility], [address], [place], [place], [id number] , [place] tel:[phone] [facility] No Information 2 Jovany Ballesteros. [facility], [address] [facility] [address], [place], [address], [place]. tel:[phone] Referring Provider: Cory Long, [employer] [address] [facility], [place], [address]. tel:[phone] [facility], [address], [place], [place], [id number] , [place] tel:[phone] [facility] No Information 2 Ana Maria Kaba. [facility], [address] [place], [address], [id number], [place]. tel:[phone] Referring Provider: Cory Long, [employer] [address] [facility], [place], [address]. tel:[phone] Office/Outpa tient Visit,Est, Mod [facility], [address], [place], [place], [id number] , [place] tel:[phone] [facility] Spinal stenosis, lumbar region with neurogenic claudication 2 Ana Maria Kaba. [facility], [address] [place], [address], [id number], [place]. tel:[phone] Referring Provider: Cory Long, [employer] [address] [facility], [place], [address]. tel:[phone] Office/Outpa tient Visit,Est, Mod [facility], [address], [place], [place], [id number] , [place] tel: [phone] [facility] Arthrodesis statusSpinal stenosis, lumbar region with neurogenic claudication 1 Ana Maria Sesar. [facility], [facility] [address], [address], [place], [place], [id number], [place]. [phone] Referring Provider: Cory Long, [employer] [address], [place], [address]. [phone] Office/Outpa tient Visit,Est, Mod [facility], [address], [place], [id number] , [place] tel: [phone] [facility] Arthrodesis status 1 Ana Maria Kaba. [facility], [address], [address], [place], [place], [id number], [place]. [phone] Referring Provider: Cory Long, [employer] [address], [place], [address]. [phone] Office/Outpa tient Visit,Est, Mod [facility], [address], [place], [id number] , [place] tel: [phone] [facility] No Information 1 Ana Maria Sesar. [facility], [facility] [address], [facility] [address], [place], [place], [id number], [place]. tel:[phone] Referring Provider: Cory Long, [employer] [address], [place], [address]. tel:[phone] [facility], [address], [place], [id number] , [place] tel: [phone] [facility] Arthrodesis status 1 No Information Referring Provider: Cory Long, [employer] [address], [place], [address]. tel:[phone] [facility], [address], [place], [place], [id number] , [place] tel: [phone] [facility] No Information No Information Referring Provider: Cory Long, [employer] [address] [facility], [place], [address]. tel:[phone] [facility], [address], [place], [place], [id number] , [place] tel:[phone] [facility] No Information Ana Maria Kaba. [facility], [address] [place] [address], [address], [id number], [place]. tel:[phone] Referring Provider: Cory Long, [employer] [address] [facility], [place], [address]. tel:[phone] Office/Outpa tient Visit,New, Mod [facility], [address], [place], [place], [id number] , [place] tel:[phone] [facility] No Information 1 Ana Maria Kaba. [facility], [address] [place] [address], [address], [id number], [place]. tel:[phone] Referring Provider: Cory Long, [employer] [address] [facility], [place], [address]. tel:[phone] Office/Outpa tient Visit,New, Mod [facility], [address], [place], [place], [id number] , [place] tel:[phone] [facility] Spondylosis of unspecified site [facility] of [facility] 5 Ana Maria Kaba. [facility], [address] [place] [address], [address], [id number], [place]. tel:[phone] Referring Provider: Henrry Joseph, [facility] [address] [facility], [place], [address]. tel:[phone] Family History Family Member Type Diagnosis Age At Onset Problem (finding) Payers Payer name Insurance type Covered green [place] Authoriza [place]ion([id number] Medicare [facility] [id number] 1 Social History Type Description Quantity Date [...]
--- NOTE | 2023-08-13 15:00 | CRLHL7_ITS ---
For Patients: As a result of the Century Cures Act, medical imaging exams and procedure reports are released immediately into your electronic medical record. You may view this report before your referring provider. If you have questions, please contact your health care provider. INDICATION: Right leg pain and swelling. TECHNIQUE: Ultrasound venous duplex right lower extremity. Compression venous exam was performed using reyes-scale, color Doppler, and spectral Doppler analysis. COMPARISON: None. FINDINGS: Deep veins: Sonographic imaging demonstrates the right common femoral, deep femoral, superficial femoral, popliteal, and posterior tibial veins to be fully compressible with normal color Doppler blood flow. The left common femoral vein was imaged for comparison, and is fully compressible and demonstrate normal flow on color Doppler imaging. Superficial veins: Greater saphenous vein is fully compressible. No popliteal cyst. IMPRESSION: Normal right lower extremity venous ultrasound. No deep vein thrombus. Dictated by Tam Altman MD @ 08/13/2023 4:17:12 PM (Electronically Signed)
== END 2023-08-13 14:51 | disposition home or self-care (01) ==
PROVIDERS: PCP Family Medicine; Visit Provider Physician Assistant Surgical
DX: M79.89 Other specified soft tissue disorders (principal); M79.604 Pain in right leg; Z96.651 Presence of right artificial knee joint
CPT/HCPCS: 93971

== ENCOUNTER 2023-10-21 09:45 | Outpatient (RCR) | payer MEDICARE, BC, SELFPAY | END 2023-12-03 10:10 | disposition home or self-care (01) | PROVIDERS: PCP Family Medicine; Visit Provider Orthopaedic Surgery Sports Medicine | DX: M17.11 Unilateral primary osteoarthritis, right knee (principal); Z96.651 Presence of right artificial knee joint; M25.561 Pain in right knee; Z51.89 Encounter for other specified aftercare | CPT/HCPCS: 97110; 97112; 97140; 97161; 97164 ==

== ENCOUNTER 2024-03-04 06:04 | Day surgery (SDC) | payer MEDICARE, BC, SELFPAY ==
--- OUTSIDE RECORDS SUMMARY | 2024-03-04 06:06 | XMS_ITS | Clinical Summary ---
Author Organization [employer] [facility] [employer] [facility] Address [place], [place] [address] Care Team Providers Care Relocation Associate Name Role Phone Cory Small MD Primary Care Provider Allergies No known active allergies Medications Medication Sig Dispensed Refills Start Date End Date Status iron,carbonyl-vito min C (VITRON C) 65 mg iron- 125 mg Delayed-Release tablet Take 1 Tab by mouth once daily. 0 10/15/2019 Active multivitamin capsule Take 1 capsule by mouth once daily. 0 10/15/2019 Active ascorbic acid, vitamin C, (VITAMIN C) 500 mg tablet Take 1 tablet by mouth once daily. 0 10/15/2019 Active acetaminophen (TYLENOL EXTRA STRGTH) 500 mg tablet Take 1,000 mg by mouth every 6 hours if needed. Max acetaminophen dose: 4000mg in 24 hrs. Active cholecalciferol, Vitamin D3, 2,000 unit tablet Take 4,000 units by mouth once daily. Active lisinopril-hydroch lorothiazide (10-12.5 mg) tablet (PRINZIDE; ZESTORETIC)Indicat ions:Essential hypertension Take 1 Tablet by mouth once daily. 90 Tablet 3 03/22/2023 Active trimethoprim-sulfa methoxazole, 160-800 mg, (BACTRIM DS, SEPTRA DS) tabIndications:Pro statitis, acute Take 1 Tablet by mouth two times daily for 28 days. 56 Tablet 01/24/2024 4 Active Problems Problem Noted Date Diagnosed Date Depression, recurrent 03/22/2023 Status post lumbar spinal fusion; L4-S1 1, 11/2021. 11/08/2020 GERD (gastroesophageal reflux disease) Adenomatous colon polyp 10/14/2015 Overview: Colonoscopy 09/2015 polyp repeat in 5 years Colonoscopy 08/2022 TA, SSA, repeat in 5 years Benign prostatic hyperplasia with lower urinary tract symptoms 08/30/2015 Prediabetes 08/30/2015 Unspecified essential hypertension 12/28/2011 Benign paroxysmal positional vertigo 01/20/2007 Obesity, unspecified 01/20/2007 Resolved Problems Problem Noted Date Diagnosed Date Resolved Date Lumbar spinal stenosis 11/03/202003/22 Postoperative anemia 11/03/2020 023 Lumbar facet arthropathy 05/14/2018 Lumbar foraminal stenosis 01/21/2015 Lumbar disc herniation 10/19/201411/08 Lumbar radicular pain 10/19/20142020 Lumbago 01/20/2007 11/08/2020 Encounters Date Type Department Care Team Description 01/24/2024 11:20 AM CDT Office Visit [facility] [address] [place] [address] Sean Ramirez MD Urinary Problem (Frequency, little urine output, low back pain x 2 weeks) 01/24/2024 Travel 01/24/2024 Nurse Triage [facility] [address] [place] [address] Cory Small MD Urinary Problem from Last 3 Months Immunizations Name Administration Dates Next Due COVID-19 vaccine (Biotix-Bio NTech 30mcg/0.3mL) 12YO+ BIVALENT PF, MDV 03/22/2023 Hepatitis A (Adult) 09/04/2011 Hepatitis B (Adult) 12/17/1996 Influenza, High-dose Inactivated 08/04/2015 Influenza, High-dose Quadriv alent Inactivated 06/25/2022,06/29/2021 Influenza, IIV3 (Age >=3 years) 09/09/20 13,08/01/2012,09/04/2011,2004 Influenza, IIV4 09/18/2016 Influenza, IIV4 (=>6mos) MDV 07/06/2020 Influenza, Inactivated AIIV4 (Age 65+ Years) Preserv Free 08/01/2023 Influenza, Inactivated IIV3 (Age 65+ Years) Preserv Free 06/11/2019,09/04/2017 Pneumococcal Conj 20-valent (Prevnar 20) 03/22/2023 Pneumococcal Poly,23-Valent (Pneumovax) 09/18/2016 Pneumococcal conj 13-Valent (Prevnar 13) 08/30/2015 Td (Age >=7 Years) 07/13/2005,01/13/2003 Tdap 11/23/2011 Typhoid (injectable) 09/04/2011 Zoster (Shingrix-RZV, recombinant) 05/23/2019, Zoster (Zostavax-ZVL, live) 11/23/2011 Family History Medical History Relation Name Comments Other Father Parkinsons Cancer Maternal Grandmother stomach Diabetes Maternal Grandmother late in life Anesthesia Problem Neg. Heart Disease Paternal Uncle early 50's Cancer Sister basel cell skin CA Relation Name Status Comments Father Maternal Grandmother Neg. Paternal Uncle Sister Social History Tobacco Use Types Packs/Day Years Used Date Smoking Tobacco: Never Smokeless Tobacco: Never Tobacco Cessation:Counseling Given: No Alcohol Use Standard Drinks/Week Comments Yes 0 (1 standard drink = 0.6 oz pur e alcohol) occas PHQ-2 Answer Date Recorded PHQ-2 TOTAL SCORE 0 03/22/2023 Social Connections Answer Date Recorded Frequency of Communication with Friends and Fami ly Not on file 09/17/2021 Financial Resource Strain Answer Date R ecorded Difficulty of Paying Living Expenses Not on file 09/17/2021 Difficulty of Paying Living Expenses Not on file 09/17/2021 Sex and Gender Information Value Date Recorded Sex Assigned at Not on file Gender Identity Not on file Sexual Orientation Not on file Obstetrics History Last Filed Vital Signs Vital Sign Reading Time Taken Comments Blood Pressure 124/62 01/24/2024 11:27 AM CDT Pulse 70 01/24/2024 11:27 AM CDT Temperature 36.4 ??C (97.6 ??F) 12/23/2021 9:00 AM CD T Respiratory Rate 16 12/23/2021 9:00 AM CDT Oxygen Saturation 97% 01/24/2024 11:27 AM CDT Inhaled Oxygen Concentration - - Weight 93 kg (205 lb) 01/24/2024 11:27 AM CDT Height 169.5 cm (5' 6.73) 08/01/2023 9:55 AM CS T Body Mass Index 32.37 08/01/2023 9:55 AM IT HELP DESK ANALYST Plan of Treatment Health Maintenance Due Date Last Done Comments Tetanus booster 11/22/2021 11/23/2011, 06/24, 01/13/2003 COVID-19 vaccine series ( season) 2023 06/21/2023, 03/22/2023, 06/25/2022, Additional history exists Depression screening for age 12+ 03/22/2024 03/22/2023, 06/11/2019, 06/09/2019, Additional history exists Medicare Wellness for age 65+ 03/22/2024 03/22/2023, 09/18/2016 Influenza for age 65+ 05/24/2024 08/01/2023 , 06/25/2022, 06/29/2021, Additional history exists BMI (ht and wt on same day) for age 18+ 08/01/2024 08/01/2023, 03/22/2023, 12/14/2021, Additional history exists Colonoscopy through age 75 09/04/202709/04, 09/04/2022, 10/13/2015, Additional history exists Lipids for age 45-75 03/22/2028 03/22/2023, 12/14/2021, 09/04/2017, Additional history exists Tdap Completed 11/23/2011 Hepatitis C screening for ag e 18-79 Completed 09/18/2016 Zoster (shingles) series for age 50+ Completed 05/23/2019, 01/09/2019, 11/23/2011 Pneumococcal series for age 65+ Completed 03/22/2023, 09/18/2016, 08/30/2015 Medical Devices Implanted Type Area Operations Support Manager Device Identifier Shelf Expiration Date Model / Serial / Lot Marco Lmbr 50x5.5mm Tsrh 3d Cvd [facility] - [id number] Implanted:Qty: 1 on 11/03/2020 by Sesar Rodgers MD at [facility] Spine Implants N/A: Spine Medtronic Spine/Ortho [id number] / / Marco Lmbr 60x5.5mm Tsrh 3d Cvd Titnm - [id number] Implanted:Qty: 1 on 11/03/2020 by Sesar Rodgers MD at [facility] Spine Implants N/A: Spine Medtronic Spine/Ortho [id number] / / Marco Lmbr 50x5.5mm Tsrh 3d Cvd Titnm - [id number] Implanted:Qty: 1 on 12/21/2021 by Sesar Rodgers MD at [facility] Spine Implants N/A: Spine Medtronic Spine/Ortho [id number] / / Set Screw Lmbr Tsrh 3dx - [id number] Implanted:Qty: 6 on 11/03/2020 by Sesar Rodgers MD at [facility] N/A: Spine Medtronic Spine/Ortho [id number] / / Cnnctr Lmbr Tsrh 3dx [place]nm - [id number] Implanted:Qty: 4 on 11/03/2020 by Sesar Rodgers MD at [facility] N/A: Spine Medtronic Spine/Ortho [id number] / / Cnnctr Lmbr Wi Tsrh 3dx [place] - [id number] Implanted:Qty: 1 on 11/03/2020 by Sesar Rodgers MD at [facility] N/A: Spine Med[employer]onic Spine/Ortho [id number] / / Cnnctr Lmbr 90 Deg Tsrh 3dx Offset Titnm - [id number] Implanted:Qty: 1 on 11/03/2020 by Sesar Rodgers MD at [facility] N/A: Spine [employer]onic Spine/Ortho [id number] / / Screw Lmbr Post 6.5x35mm Tsrh 3dx Og Thin Va - [id number] Implanted:Qty: 1 on 11/03/2020 by Sesar Rodgers MD at [facility] N/A: Spine [employer]onic Spine/Ortho [id number] / / Screw Lmbr Post 6.5x40mm Tsrh 3dx Og Thin Va - [id number] Implanted:Qty: 1 on 11/03/2020 by Sesar Rodgers MD at [facility] N/A: Spine [employer]onic Spine/Ortho [id number] / / Screw Lmbr Post 6.5x45mm Tsrh 3dx Og Thin Va - [id number] Implanted:Qty: 4 on 11/03/2020 by Sesar Rodgers MD at [facility] N/A: Spine Medtronic Spine/Ortho [id number] / / Set Screw Lmbr Tsrh 3dx - [id number] Implanted:Qty: 4 on 12/21/2021 by Sesar Rodgers MD at [facility] N/A: Spine Medtronic Spine/Ortho [id number] / / Cnnctr Lmbr Sm Tsrh 3dx [place]nm - [id number] Implanted:Qty: 4 on 12/21/2021 by Sesar Rodgers MD at [facility] N/A: Spine Medtronic Spine/Ortho [id number] / / Marco Lmbr 45x5.5mm Tsrh 3d Cvd Titnm - [id number] Implanted:Qty: 1 on 12/21/2021 by Sesar Rodgers MD at [facility] N/A: Spine Medtronic Spine/Ortho [id number] / / Screw Lmbr Post 7.5x35mm Tsrh 3dx Og Thin Va - [id number] Implanted:Qty: 2 on 12/21/2021 by Sesar Rodgers MD at [facility] N/A: Spine Medtronic Spine/Ortho [id number] / / Screw Lmbr Post 7.5x40mm Tsrh 3dx Og Thin Va - [id number] Implanted:Qty: 2 on 12/21/2021 by Sesar Rodgers MD at [facility] N/A: Spine Medtronic Spine/Ortho [id number] / / [id number] bone 1-4mm 30cc Medtronic Chips Canclls Freeze Dried Implanted:Qty: 1 on 12/21/2021 by Sesar Rodgers MD at [facility] Explanted:at [facility] (Quantity not on file) N/A: Spine Medtronic Spine/Ortho 01/31/2026 [id number] / [id number] / Bone Matrix Lg Ii Infuse Bmp - [id number] Implanted:Qty: 1 on 12/21/2021 by Sesar Rodgers MD at [facility] N/A: Spine Medtronic Spine/Ortho 12/21/2022 [id number] / / [id number] Procedures Procedure Name Priority Date/Time Associated Diagnosis Comments CBC WITH AUTO DIFFERENTIAL Routine 01/24/2024 11:53 AM CDT Prostatitis, acute C-REACTIVE PROTEIN Routine 01/24/2024 11 :53 AM CDT Prostatitis, acute COMP METABOLIC PANEL Routine 01/24/2024 11:53 AM CDT Prostatitis, acute CBC WITH AUTO DIFFERENTIAL Routine 01/24/2024 11:53 AM CDT Prostatitis, acute UA W/ SEDIMENT EXAM REFLEXED PER CRITERIA Routine 01/24/2024 11:20 AM CDT Dysuria LIPID PANEL W REFLEX MEASURED LDL Routine 03/22/2023 2:53 PM CDT Hyperlipidemia, unspecified hyperlipidemia type COLONOSCOPY 09/04/2022 7:44 AM IT HELP DESK ANALYST ANTI HCV Routine 09/18/2016 9:37 AM IT HELP DESK ANALYST Need for hepatitis C screening test from Last 3 Months or Most Recently Relevant to Health Maintenance Results * (ABNORMAL) CBC WITH AUTO DIFFERENTIAL (01/24/2024 11:53 AM CDT) WHITE BLOOD COUNT 4.8 4.5 - 11.0 thou/cu mm 01/24/2024 11:55 AM CDT [facility] RED BLOOD COUNT 3.74(L) 4.30 - 5.90 mil/cu mm 01/24/2024 11:55 AM CDT [facility] HEMOGLOBIN 12.3(L) 13.5 - 17.5 g/dL 01/24/2024 11:55 AM CDT [facility] HEMATOCRIT 35.6(L) 37.0 - 53.0 % 01/24/2024 11:55 AM CDT [facility] MCV 95 80 - 100 fL 01/24/2024 11:55 AM CDT [facility] MCH 32.9 26.0 - 34.0 pg 01/24/2024 11:55 AM CDT [facility] MCHC 34.6 32.0 - 36.0 g/dL 01/24/2024 11:55 AM CDT [facility] RDW 15.0 11.5 - 15.5 % 01/24/2024 11:55 AM CDT [facility] PLATELET COUNT 219 140 - 440 thou/cu mm 01/24/2024 11:55 AM CDT [facility] MPV 11.3(H) 6.5 - 11.0 fL 01/24/2024 11:55 AM CDT [facility] % NEUT 72.9 % 01/24/2024 11:55 AM CDT [facility] % LYMPH 16.7 % 01/24/2024 11:55 AM CDT [facility] % MONO 9.8 % 01/24/2024 11:55 AM CDT [facility] % EOS 0.2 % 01/24/2024 11:55 AM CDT [facility] % BASO 0.4 % 01/24/2024 11:55 AM CDT [facility] ABSOLUTE NEUTROPHILS 3.5 1.7 - 7.0 thou/cu mm 01/24/2024 11:55 AM CDT [facility] ABSOLUTE LYMPHOCYTES 0.8(L) 0.9 - 2.9 thou/cu mm 01/24/2024 11:55 AM CDT [facility] ABSOLUTE MONOCYTES 0.5 <0.9 thou/cu mm 01/24/2024 11:55 AM CDT [facility] ABSOLUTE EOSINOPHILS 0.0 <0.5 thou/cu mm 01/24/2024 11:55 AM CDT [facility] ABSOLUTE BASOPHILS 0.0 <0.3 thou/cu mm 01/24/2024 11:55 AM CDT [facility] Blood BLOOD SPECIMEN / Unknown Venipuncture / Unknown 01/24/2024 11:53 AM CDT 01/24/2024 11:53 AM CDT Sean Ramirez MD HEMATOLOGY [facility] [address] [place] [address], * (ABNORMAL) C-REACTIVE PROTEIN (01/24/2024 11:53 AM CDT) C-REACTIVE PROTEIN 1.2(H) <0.5 mg/dL 01/24/2024 10:38 PM CDT [facility] Blood BLOOD SPECIMEN / Unknown Venipuncture / Unknown 01/24/2024 11:53 AM CDT 01/24/2024 11:53 AM CDT Sean Ramirez MD CHEMISTRY [facility] [address] [place] [address], * (ABNORMAL) COMP METABOLIC PANEL (01/24/2024 11:53 AM CDT) SODIUM 137 136 - 145 mmol/L 01/24/2024 10:38 PM CDT [facility] POTASSIUM 4.3 3.5 - 5.1 mmol/L 01/24/2024 10:38 PM CDT [facility] CHLORIDE 99 98 - 107 mmol/L 01/24/2024 10:38 PM CDT [facility] CO2,TOTAL 24 22 - 29 mmol/L 01/24/2024 10:38 PM CDT [facility] ANION GAP 14 5 - 18 01/24/2024 10:38 PM CDT [facility] GLUCOSE 94 70 - 99 mg/dL 01/24/2024 10:38 PM CDT [facility] CALCIUM 9.7 8.8 - 10.2 mg/dL 01/24/2024 10:38 PM CDT [facility] BUN 16 8 - 23 mg/dL 01/24/2024 10:38 PM T [facility] CREATININE 0.97 0.70 - 1.20 mg/dL 01/24/2024 10:38 PM CDT [facility] BUN/CREAT RATIO 16 10 - 20 10:38 PM CDT [facility] eGFR 82(L) >90 mL/min/1.7 3m2 01/24/2024 10:38 PM CDT [facility] Comment:As of 2021, eG FR is calculated by the CKD-EPI creatinine equation without race adjustment. ??eGFR can be influenced by muscle mass, exercise, and diet. ??The reported eGFR is an estimation only and is only applicable if the renal function is stable. ALBUMIN 4.6 4.0 - 4.9 g/dL 01/24/2024 10:38 PM CDT [facility] PROTEIN,TOTAL 7.0 6.0 - 8.0 g/dL 01/24/2024 10:38 PM CDT [facility] BILIRUBIN,TOTAL 0.8 0.0 - 1.2 mg/dL 01/24/2024 10:38 PM T [facility] ALK PHOSPHATASE 100 40 - 129 IU/L 01/24/2024 10:38 PM CDT [facility] ALT (SGPT) 24 10 - 50 IU/L 01/24/2024 10:38 PM CDT [facility] AST (SGOT) 24 10 - 50 IU/L 01/24/2024 10:38 PM T [facility] Blood BLOOD SPECIMEN / Unknown Venipuncture / Unknown 01/24/2024 11:53 AM CDT 01/24/2024 11:53 AM CDT Sean Ramirez MD CHEMISTRY [facility] [address] [place] [address], * (ABNORMAL) UA W/ SEDIMENT EXAM REFLEXED PER CRITERIA (01/24/2024 11:20 AM CDT) COLOR Yellow Yellow Color 01/24/2024 11:23 AM CDT [facility] CLARITY Clear Clear Clarity 01/24/2024 11:23 AM CDT [facility] SPECIFIC GRAVITY,URINE >=1.030(A) 1.010, 1.015, 1.020, 1.025 01/24/2024 11:23 AM CDT [facility] PH,URINE 6.0 6.0, 7.0, 8.0, 5.5, 6.5, 7.5, 8.5 01/24/2024 11:23 AM CDT [facility] UROBILINOGEN, QUALITATIVE Normal Normal EU/dl 01/24/2024 11:23 AM CDT [facility] PROTEIN, URINE Negative Negative mg/dL 01/24/2024 11:23 AM CDT [facility] GLUCOSE, URINE Negative Negative mg/dL 01/24/2024 11:23 AM T [facility] KETONES,URINE Negative Negative mg/dL 01/24/2024 11:23 AM T [facility] BILIRUBIN,URI NE Negative Negative 01/24/2024 11:23 AM CDT [facility] OCCULT BLOOD,URINE Negative Negative 01/24/2024 11:23 AM T [facility] NITRITE Negative Negative 01/24/2024 11:23 AM T [facility] LEUKOCYTE ESTERASE Negative Negative 01/24/2024 11:23 AM T [facility] Urine URINE SPECIMEN / Unknown Non-Blood / Unknown 01/24/2024 11:20 AM CDT 01/24/2024 11:20 AM CDT Sean Ramirez MD URINE [facility] [address] [place] [address], * (ABNORMAL) LIPID PANEL W REFLEX MEASURED LDL (03/22/2023 2:53 PM CDT) CHOLESTEROL,TOTAL 185 100 - 199 mg/dL 03/23/2023 1:13 AM T [facility] Comment: Cholesterol, Total Reference Ranges Desirable <200 mg/dL Borderline 200-239 mg/dL High >=240 mg/dL TRIGLYCERIDES 357(H) <150 mg/dL 03/23/2023 1:13 AM CDT [facility] HDL CHOLESTEROL 40(L) >40 mg/dL 1:13 AM CDT [facility] NON-HDL CHOLESTEROL 145(H) <145 mg/dl 03/23/2023 1:13 AM CDT [facility] CHOL/HDL RATIO 4.63(H) <4.50 03/23/2023 1:13 AM CDT [facility] LDL CHOLESTEROL 74 <=130 mg/dL 03/23/2023 1:13 AM CDT [facility] VLDL CHOLESTEROL 71(H) <=30 mg/dL 03/23/2023 1:13 AM CDT [facility] PROVIDER ORDERED STATUS RANDOM 03/23/2023 1:13 AM CDT [facility] Blood BLOOD SPECIMEN / Unknown Venipuncture / Unknown 03/22/2023 2:53 PM CDT 03/22/2023 2:55 PM CDT Cory Small MD [facility]MI[facility] [address] [place] [address], [place] * COLONOSCOPY (09/04/2022 7:44 AM IT HELP DESK ANALYST) 09/04/2022 7:44 AM IT HELP DESK ANALYST Narrative Transcriptions Dawit Lamar MD - 09/04/2022 8:35 AM CST Patient Name: Stanley Melvin Procedure Date: 09/04/2022 Gender: Male Date of : 1950 Admit Type: Outpatient Procedure: Colonoscopy Proceduralist: Dawit Lamar MD , [place] Bartholomew (Nurse), Ginny Howell (Nurse) Indications/Pre-Op Diagnosis: High risk colon cancer surveillance:Personal history of adenoma less than 10 mm in size, Last colonoscopy: September 2015 Medications: Fentanyl 100 micrograms IV, Midazolam 2 mgIV, The level of sedation administered wasmoderate Procedure Description: The patient had risks, benefits and alternatives explained to andgave informed consent. The patient had a stable cardiopulmonary status and judged an adequate candidate for conscious sedation. The endoscope [id number] was passed through the anus andadvanced to the cecum, identified by appendiceal orifice and ileocecal valve.The colonoscopy was performed without difficulty. The patient toleratedthe procedure well. The quality of the bowel preparation was good. The ileocecal valve, appendiceal orifice, and rectum were photographed. Complications: No immediate complications. Estimated Blood Loss & Specimen: Estimated blood loss: none. Specimen collected - Yes and sent to Laboratory Findings: The perianal and digital rectal examinations were normal. Two sessile polyps were found in the ascending colon. The polyps were2 to 3 mm in size. These polyps were removed with a cold biopsyforceps. Resection and retrieval were complete. Scattered small and large-mouthed diverticula were found in theentire colon. The exam was otherwise without abnormality. Impressions/Post-Op Diagnosis: - Two 2 to 3 mm polyps in the ascending colon, removed with a cold biopsy forceps. Resected and retrieved. - Diverticulosis in the entire examined colon. - The examination was otherwise normal. Recommendation: - Patient has a contact number available for emergencies. The signsand symptoms of potential delayed complications were discussed with the patient. Return to normal activities tomorrow. Written discharge instructions were provided to the patient. - Resume previous diet. - Continue present medications. - Await pathology results. - Repeat colonoscopy is recommended. The colonoscopy date will be determined after pathology results from today's exam become available for review. Moderate Sedation: Moderate (conscious) sedation was administered by the endoscopy nurse and supervised by the endoscopist. The following parameters were monitored: oxygen saturation, heart rate, EKG, CO2, respiratory rate, adequacy of pulmonary ventilation and reponse to care. Please refer to the patient's medical record flowsheets for moderate sedation details. Dawit Lamar MD 09/04/2022 8:35:18 AM This report has been signed electronically. Note Initiated On: 09/04/2022 7:44 AM Procedure Code(s): --- Professional --- 73773, Colonoscopy, flexible; with biopsy, single or multiple Diagnosis Code(s): --- Professional --- Z86.010, Personal history of colonicpolyps D12.2, Benign neoplasm of ascending colon K57.30, Diverticulosis of large intestine without perforation or abscess withoutbleeding CPT copyright 2020 [employer]. All rights reserved. The codes documented in this report are preliminary and upon real estate sales agent reviewmay be revised to meet current compliance requirements. Scope In: 8:12:01 AM Scope Withdrawal Time 0 hours 9 minutes 13 seconds Scope Out: 8:24:11 AM Dawit Lamar MD PROCEDURE ORD * ANTI HCV (09/18/2016 9:37 AM IT HELP DESK ANALYST) HEPATITIS C ANTIBODY Non-Reacti ve Non-Reacti ve 09/18/2016 5:48 PM IT HELP DESK ANALYST [facility] Blood BLOOD SPECIMEN / Unknown Venipuncture / Unknown 09/18/2016 9:37 AM IT HELP DESK ANALYST 09/18/2016 9:37 AM IT HELP DESK ANALYST Narrative [facility] - 09/18/2016 5:48 PM IT HELP DESK ANALYST Antibodies to HCV not detected; does not exclude the possibility of exposure to HCV. Cory Small MD SEND OUTS [facility] [address] [place] [address], from Last 3 Months or Most Recently Relevant to Health Maintenance Advance Directives * Full Code (Latest Code Status on File) Date Activated Date Inactivated Comments 12/21/2021 6:43 PM 12/23/2021 3:13 PM Question Answer Comments Code Status Discussion: Reviewed Preferences * Full Code Date Activated Date Inactivated Comments 11/03/2020 6:08 PM 11/05/2020 4:06 PM Question Answer Comments Code Status Discussion: Discussed Care Teams Relocation Associate Relationship Specialty Start Date End Date Cory Small MD [address] [place] [address] PCP - General 02/11/08
--- OUTSIDE RECORDS SUMMARY | 2024-03-04 06:06 | XMS_ITS | Continuity of Care Document ---
Author Organization [facility] Address [address] [place] [address] Phone Care Team Providers Care Foreign Clerk Name Role Phone Sesar Rodgers MD Unavailable [...] Facetectomy/Foraminotomy, Lumbar ( Stenosis) Reinsertion of Instrumentation 22 Allograft, Morcelized, and/or BMP Office/Outpatient Visit,Est, Mod [...] nal Level(s) Posterior Instrumentation, 3-6 Segments [facility] [place] [facility]patient Visit,[facility], Mod 2014 Advance Directives Directive Yes / No Effective Date File Name No Information Encounters Encounter Description Practice Location Reason(s) For Visit Diagnoses Date Provider Providers Copied on Encounter Office/Outpa tient Visit,Est, Mod [facility], [address], [place], [place], [id number] , [place] tel:[phone] [facility] Arthrodesis status 3 Ana Maria Kaba. [facility] [place], [address] [place] [address], [id number], [place]. tel:[phone] Referring Provider: Cory Long, [employer] [address] [place], [address]. tel:[phone] Office/Outpa tient Visit,Est, Low [facility], [address], [facility] [place] [place], [id number] , [place] tel:[phone] [facility] Arthrodesis status 2 Ana Maria Kaba. [facility] [place], [address] [place] [address], [id number], [place]. tel:[phone] Referring Provider: Cory Long, [facility] [address] [place], [address]. tel:[phone] [facility], [address], [place], [place], [id number] , [place] [phone] [facility] Encounter for other specified surgical aftercare 2 Jovany Ballesteros. [facility] [place], [address] [facility] [address], [place], [address], [place]. tel:[phone] Referring Provider: Cory Long, [place] [address] [facility], [place], [address]. [phone] [facility], [address], [place], [place], [id number] , [place] tel:[phone] [facility] No Information 2 Jovany Ballesteros. [facility] [place], [address] [place] [address], [place], [address], [place]. tel:[phone] Referring Provider: Cory Long, [employer] [address], [place], [address]. tel:[phone] [facility], [address], [place], [place], [id number] , [place] tel:[phone] [facility] No Information 2 Ana Maria Kaba. [facility] [place], [address] [place], [facility] [address], [place], [id number], [place]. tel:[phone] Referring Provider: Cory Long, [employer] [address] [facility], [place], [address]. tel:[phone] Office/Outpa tient Visit,Est, Mod [facility], [address], [place], [place], [id number] , [place] tel:[phone] [facility] Spinal stenosis, lumbar region with neurogenic claudication 2 Ana Maria Kaba. [facility] [place], [address], [facility] [address], [place], [id number], [place]. tel:[phone] Referring Provider: Cory Long, [employer] [address], [place], [address]. tel:[phone] Office/Outpa tient Visit,Est, Mod [facility], [address], [place], [place], [id number] , [place] tel: [phone] [facility] Arthrodesis statusSpinal stenosis, lumbar region with neurogenic claudication 1 Ana Maria Kaba. [facility], [address], [address], [place], [place], [id number], [place]. [phone] Referring Provider: Cory Long, [employer] [address], [place], [address]. tel:[phone] Office/Outpa tient Visit,Est, Mod [facility], [address], [place], [address] , [place] tel: [phone] [facility] Arthrodesis status 1 Ana Maria Kaba. [facility], [address], [address], [place], [place], [id number], [place]. [phone] Referring Provider: Cory Long, [place] [address], [place], [address]. tel:[phone] Office/Outpa tient Visit,Est, Mod [facility], [address], [place], [id number] , [place] tel: [phone] [facility] No Information 1 Ana Maria Kaba. [facility] [place], [address], [address], [place], [place], [id number], [place]. tel:[phone] Referring Provider: Cory Long, [place] [address], [place], [address]. tel:[phone] [facility], [address], [place], [id number] , [place] tel: [phone] [facility] Arthrodesis status 1 No Information Referring Provider: Cory Long, [place] [address], [place], [address]. tel:[phone] [facility], [address], [place], [place], [id number] , [place] tel: [phone] [facility] No Information No Information Referring Provider: Cory Long, [employer] [address] [facility], [place], [address]. tel:[phone] [facility], [address], [place], [place], [id number] , [place] [phone] [facility] No Information Ana Maria Kaba. [facility] [place], [address] [place] [address], [address], [id number], [place]. tel:[phone] Referring Provider: Cory Long, [employer] [address] [facility], [place], [address]. tel:[phone] Office/Outpa tient Visit,New, Mod [facility], [address], [place], [place], [id number] , [place] [phone] [facility] No Information 1 Ana Maria Kaba. [facility], [address] [place] [address], [address], [id number], [place]. tel:[phone] Referring Provider: Cory Long, [employer] [address] [facility], [place], [address]. tel:[phone] Office/Outpa tient Visit,New, Mod [facility], [address], [place], [place], [id number] , [place] [phone] [facility] Spondylosis of unspecified site [facility] of [facility] 5 Ana Maria Kaba. [facility] [place], [address] [place] [address], [address], [id number], [place]. tel:[phone] Referring Provider: Henrry Joseph, [facility] [address] [facility], [place], [address]. tel:[phone] Family History Family Member Type Diagnosis Age At Onset Problem (finding) Payers Payer name Insurance type Covered constitution party [place] [id number] Medicare [facility] [id number] 1 Social History Type Description Quantity Date [...] Infor mation Weight Management Related to Ove rweit Assessments Type Assessment Date No Information Patient Care Teams Name Effective Dates (start - stop) Status Members No Information
--- OUTSIDE RECORDS SUMMARY | 2024-03-04 06:06 | XMS_ITS | Continuity of Care Document ---
Author Organization [facility] Address [address] [place] [address] Phone Care Team Providers Care Coil Winding Supervisor Name Role Phone Sesar Rodgers MD Unavailable [...] nal Level(s) Posterior Instrumentation, 3-6 Segments Office/Outpatient Visit,[facility], [facility] 2020 Office/Outpatient Visit,[facility], Mod 2014 Advance Directives Directive Yes / No Effective Date File Name No Information Encounters Encounter Description Practice Location Reason(s) For Visit Diagnoses Date Provider Providers Copied on Encounter Office/Outpa tient Visit,Est, Mod [facility], [address], [place], [place], [id number] , [place] tel:[phone] [facility] Arthrodesis status 3 Ana Maria Kaba. [facility] [place], [address] [place] [address], [id number], [place]. tel:[phone] Referring Provider: Cory Long, [employer] [address] [place], [address]. tel:[phone] Office/Outpa tient Visit,Est, Low [facility], [address], [facility] [place], [id number] , [place] tel:[phone] [facility] Arthrodesis status 2 Ana Maria Kaba. [facility] [place], [address] [place] [address], [id number], [place]. tel:[phone] Referring Provider: Cory Long, [facility] [address] [place], [address]. tel:[phone] [facility], [address], [place], [id number] , [place] [phone] [facility] Encounter for other specified surgical aftercare 2 Jovany Ballesteros. [facility] [place], [address] [facility] [address], [place], [address], [place]. tel:[phone] Referring Provider: Cory Long, [employer] [address] [facility], [place], [address]. [phone] [facility], [address], [place], [place], [id number] , [place] tel:[phone] [facility] No Information 2 Jovany Ballesteros. [facility] [place], [address], [place], [address], [place]. tel:[phone] Referring Provider: Cory Long, [employer] [address], [place], [address]. tel:[phone] [facility], [address], [place], [place], [id number] , [place] tel:[phone] [facility] No Information 2 Ana Maria Kaba. [facility] [place], [address] [place], [facility] [address], [place], [id number], [place]. tel:[phone] Referring Provider: Cory Long, [employer] [address] [facility], [place], [address]. tel:[phone] Office/Outpa tient Visit,Est, Mod [facility], [address], [place], [place], [id number] , [place] tel:[phone] [facility] Spinal stenosis, lumbar region with neurogenic claudication 2 Ana Maria Kaba. [facility] [place], [address], [facility] [address], [place], [id number], [place]. tel:[phone] Referring Provider: Cory Long, [employer] [address], [place], [address]. tel:[phone] Office/Outpa tient Visit,Est, Mod [facility], [address], [place], [place], [address] , [place] tel: [phone] [facility] Arthrodesis statusSpinal stenosis, lumbar region with neurogenic claudication 1 Ana Maria Kaba. [facility], [address], [address], [place], [place], [id number], [place]. [phone] Referring Provider: Cory Long, [employer] [address], [place], [address]. tel:[phone] Office/Outpa tient Visit,Est, Mod [facility], [address], [place], [id number] , [place] tel: [phone] [facility] Arthrodesis status 1 Ana Maria Kaba. [facility], [address], [address], [place], [place], [id number], [place]. [phone] Referring Provider: Cory Long, [employer] [address], [place], [address]. tel:[phone] Office/Outpa tient Visit,Est, Mod [facility], [address], [place], [id number] , [place] tel: [phone] [facility] No Information 1 Ana Maria Kaba. [facility] [place], [address], [address], [place], [place], [id number], [place]. tel:[phone] Referring Provider: Cory Long, [employer] [address], [place], [address]. tel:[phone] [facility], [address], [place], [address] , [place] tel: [phone] [facility] Arthrodesis status 1 No Information Referring Provider: Cory Long, [employer] [address], [place], [address]. tel:[phone] [facility], [address], [place], [address] , [place] tel: [phone] [facility] No Information No Information Referring Provider: Cory Long, [employer] [address] [facility], [place], [address]. tel:[phone] [facility], [address], [place], [place], [address] , [place] [phone] [facility] No Information Ana Maria Kaba. [facility] [place], [address] [place] [address], [address], [id number], [place]. tel:[phone] Referring Provider: Cory Long, [employer] [address] [facility], [place], [address]. tel:[phone] Office/Outpa tient Visit,New, Mod [facility], [address], [place], [place], [address] , [place] [phone] [facility] No Information 1 Ana Maria Kaba. [facility], [address] [place] [address], [address], [id number], [place]. tel:[phone] Referring Provider: Cory Long, [employer] [address] [facility], [place], [address]. tel:[phone] Office/Outpa tient Visit,New, Mod [facility], [address], [place], [place], [address] , [place] [phone] [facility] Spondylosis of unspecified site [facility] of [facility] 5 Ana Maria Kaba. [facility] [place], [address] [place] [address], [address], [id number], [place]. tel:[phone] Referring Provider: Henrry Joseph, [facility] [address] [facility], [place], [address]. tel:[phone] Family History Family Member Type Diagnosis Age At Onset Problem (finding) Payers Payer name Insurance type Covered green [place]ion([place] [id number] Medicare [facility] [id number] 1 Social History Type Description Quantity Date [...]
[2024-03-04 06:18] VITALS: BMI 32.6
[2024-03-04 06:22] VITALS: BP 118/65; PULSE 60; RESP 16; TEMP 36.6; O2SAT 97
[2024-03-04] MEDS: ETHYL CHLORIDE 1 APPLICATION 1 APPLIC TOPICAL (06:55)
[2024-03-04] MEDS: BUPIVACAINE 0.5% 30 ML INJECTION (06:55)
[2024-03-04 07:15] VITALS: BP 129/65; PULSE 52; RESP 16; O2SAT 98
[2024-03-04 07:20] VITALS: BP 136/63; PULSE 56; RESP 16; O2SAT 100
[2024-03-04 07:25] VITALS: BP 119/64; PULSE 52; RESP 16; O2SAT 100
[2024-03-04 07:30] VITALS: BP 120/63; PULSE 55; RESP 16; O2SAT 97
--- NOTE | 2024-03-04 07:32 | P.ORPRC_ITS ---
Procedure Note Date of procedure: 03/04/24 Procedure: PREOPERATIVE DIAGNOSIS: 1. Right small finger flexor tenosynovitis - trigger finger POSTOPERATIVE DIAGNOSIS: 1. Right small finger flexor tenosynovitis - trigger finger PROCEDURE: 1. Right small finger flexor tendon sheath open release (A1 tate) SURGEON: Frank Em MD. NEEDLEMAKER: Marlen Parker PA-C ANESTHESIA: Local anesthetic 4ml via 50:50 mixture of 1% Lidocaine with epi and 0.5% marcaine plain EBL: 2mL IMPLANTS: None TOURNIQUET: None COMPLICATIONS: None evident INDICATIONS: The patient is a pleasant 74-year-old male who has experienced right small finger catching/triggering for number of months. It has progressively gotten worse. Given the failure of nonoperative management, and how this affects daily life, surgery was recommended. DESCRIPTION OF PROCEDURE: Following a thorough discussion of risks, benefits, and alternatives consent was obtained and the operative digit(s) was marked. The patient was brought to the operating room and placed supine on the operating table. Local anesthesia induction was undertaken in preop holding. No antibiotics were administered as this was planned to be a local case only. Proper time-out was performed identifying proper patient, site, and procedure. The operative extremity was prepped and draped in the appropriate sterile fashion using ChloraPrep. An incision was made on the palmar surface of the hand overlying the MCP joint region of the appropriate digit(s) respecting the palmar creases being cautious not to cross these perpendicularly. Sharp incision through the skin, and blunt dissection through subcutaneous tissue allowing protection of crossing neurologic structures. The A1 tate was visualized directly. It was incised sharply with a 15 blade. It was released completely from its distal to proximal extent under direct visualization. The tendon was inspected and found to be mildly striated consistent with some friction. Otherwise, it was intact. The tendon was removed out of the wound, and further inspected. The patient was asked to manually flex and extend the digits and showed no further catching. The catching, which was visualized initially, was no longer evident with reproduction of a manual fist and relaxation. Closure was performed with 4-O nylon in interrupted fashion. Soft dressings were applied, and the patient was transferred to the recovery room in stable condition. PLAN: 1. Encourage elevation of the operative extremity. 2. Range of motion of the fingers and hand/wrist as tolerated. 3. Ibuprofen/acetaminophen and/or oxycodone as needed for pain control. 4. Follow up with PA visit in 12-16 days for wound check and suture removal.
[2024-03-04 07:35] VITALS: BP 117/68; PULSE 64; RESP 16; TEMP 36.6; O2SAT 99
== END 2024-03-04 07:52 | disposition home or self-care (01) ==
LOC: OR 06:04
PROVIDERS: PCP Family Medicine; Visit Provider Orthopaedic Surgery Sports Medicine
PROC: (CPT 26055; principal; 2024-03-04 07:15)
DX: M65.351 Trigger finger, right little finger (principal); M65.841 Other synovitis and tenosynovitis, right hand
CPT/HCPCS: 26055; J0665

== ENCOUNTER 2024-04-06 09:03 | Day surgery (SDC) | payer MEDICARE, BC, SELFPAY ==
[2024-04-06] VITALS (11 sets, daily range): BP systolic 96–135; BP diastolic 64–80; PULSE 45–63; RESP 12–18; TEMP 36.1–36.3; O2SAT 94–100; BMI 31.3
--- OUTSIDE RECORDS SUMMARY | 2024-04-06 09:07 | XMS_ITS | Clinical Summary ---
Author Organization [employer] [facility] Address [place], [place] [address] Care Team Providers Care Enrichment Specialist Name Role Phone Cory Small MD Primary Care Provider Allergies No known active allergies Medications Medication Sig Dispensed Refills Start Date End Date Status iron,carbonyl-vitam in C (VITRON C) 65 mg iron- 125 [...] 4,000 units by mouth once daily. Active lisinopril-hydrochl orothiazide (10-12.5 mg) tablet (PRINZIDE; ZESTORETIC)Indicati ons:Essential hypertension Take 1 Tablet by mouth once daily. 90 Tablet 3 03/22/2023 Active Active Problems Problem Noted Date Diagnosed Date Status post lumbar spinal fusion; L4-S1 1, 11/2021. 11/08/2020 GERD (gastroesophageal reflux disease) 1 Adenomatous colon polyp 10/14/2015 Overview: Colonoscopy 09/2015 polyp repeat in 5 years Colonoscopy 08/2022 TA, SSA, repeat in 5 years Benign prostatic hyperplasia with lower urinary tract symptoms 08/30/2015 Prediabetes 08/30/2015 Unspecified essential hypertension 12/28/2011 Benign paroxysmal positional vertigo 01/20/2007 Obesity, unspecified 01/20/2007 Resolved Problems Problem Noted Date Diagnosed Date Resolved Date Depression, recurrent 03/22/20232023 Lumbar spinal stenosis 11/03/202003/22 Postoperative anemia 11/03/2020 023 Lumbar facet arthropathy 05/14/2018 Lumbar foraminal stenosis 01/21/2015 Lumbar disc herniation 10/19/201411/08 Lumbar radicular pain 10/19/20142020 Lumbago 01/20/2007 11/08/2020 Encounters Date Type Department Care Team Description 04/02/2024 1:15 PM CDT Preop Visit [facility] [address] [place] [address] Cory Small MD Preoperative Exam (DOS: 04/06/2024, right TKA Scope Debridement, Dr. Wilson, [facility]) 04/02/2024 Travel 01/24/2024 11:20 AM CDT Office Visit [facility] [address] [place] [address] Sean Ramirez MD Urinary Problem (Frequency, little urine output, low back pain x 2 weeks) 01/24/2024 Travel 01/24/2024 Nurse Triage [facility] [address] [place] [address] Cory Small MD Urinary Problem from Last 3 Months Immunizations Name Administration Dates Next Due COVID-19 vaccine (SPARQCode-Bio NTJampp 30mcg/0.3mL) 12YO+ BIVALENT PF MDV 03/22/2023 Hepatitis A (Adult) 09/04/2011 Hepatitis [...] Sign Reading Time Taken Comments Blood Pressure 109/66 04/02/2024 1:11 PM CDT Pulse 70 04/02/2024 1:11 PM CDT Temperature 36.4 ??C (97.6 ??F) 12/23/2021 9:00 AM CD T Respiratory Rate 16 12/23/2021 9:00 AM CDT Oxygen Saturation 97% 04/02/2024 1:11 PM CDT Inhaled Oxygen Concentration - - Weight 90.7 kg (200 lb) 04/02/2024 1:11 PM CDT Height 170.2 cm (5' 7) 04/02/2024 1:11 PM CDT Body Mass Index 31.32 04/02/2024 1:11 PM CDT Plan of Treatment Health Maintenance Due Date [...] wt on same day) for age 18+ 04/02/2025 04/02/2024, 08/01/2023, 03/22/2023, Additional history exists Colonoscopy through age 75 09/04/202709/04, 09/04/2022, 10/13/2015, Additional history exists Lipids for age 45-75 03/22/2028 03/22/2023, 12/14/2021, 09/04/2017, Additional history exists Tdap Completed 11/23/2011 Hepatitis C screening for ag e 18-79 Completed 09/18/2016 Zoster (shingles) series for age 50+ Completed 05/23/2019, 01/09/2019, 11/23/2011 Pneumococcal series for age 65+ Completed 03/22/2023, 09/18/2016, 08/30/2015 Medical Devices Implanted Type Area Hot Tar Roofer Device Identifier Shelf Expiration Date Model / Serial / Lot Marco Lmbr 50x5.5mm Tsrh 3d Cvd [facility] - [id number] Implanted:Qty: 1 on 11/03/2020 by Sesar Rodgers MD at [facility] Spine Implants N/A: Spine Medtronic Spine/Ortho [id number] / / Marco Lmbr 60x5.5mm Tsrh 3d Cvd Titnm - [id number] Implanted:Qty: 1 on 11/03/2020 by Sesar Rodgers MD at [facility] Spine Implants N/A: Spine Medtronic Spine/Ortho [id number] / / Marco Lmbr 50x5.5mm Tsrh 3d Cvd Titnm - [id number] Implanted:Qty: 1 on 12/21/2021 by Sesar Rodgers MD at [facility] Spine Implants N/A: Spine Medtronic Spine/Ortho [id number] / / Set Screw Lmbr Tsrh 3dx - [id number] Implanted:Qty: 6 on 11/03/2020 by Sesar Rodgers MD at [facility] N/A: Spine Medtronic Spine/Ortho [id number] / / Cnnctr Lmbr Sm Tsrh 3dx Offsettitnm - [id number] Implanted:Qty: 4 on 11/03/2020 by Sesar Rodgers MD at [facility] N/A: Spine Medtronic Spine/Ortho [id number] / / Cnnctr Lmbr Md Tsrh 3dx Offsettitnm - [id number] Implanted:Qty: 1 on 11/03/2020 by Sesar Rodgers MD at [facility] N/A: Spine Medtronic Spine/Ortho [id number] / / Cnnctr Lmbr 90 Deg Tsrh 3dx Offset Titnm - [id number] Implanted:Qty: 1 on 11/03/2020 by Sesar Rodgers MD at [facility] N/A: Spine Medtronic Spine/Ortho [id number] / / Screw Lmbr Post 6.5x35mm Tsrh 3dx Og Thin Va - [id number] Implanted:Qty: 1 on 11/03/2020 by Sesar Rodgers MD at [facility] N/A: Spine Medtronic Spine/Ortho [id number] / / Screw Lmbr Post 6.5x40mm Tsrh 3dx Og Thin Va - [id number] Implanted:Qty: 1 on 11/03/2020 by Sesar Rodgers MD at [facility] N/A: Spine Medtronic Spine/Ortho [id number] / / Screw Lmbr Post 6.5x45mm Tsrh 3dx Og Thin Va - [id number] Implanted:Qty: 4 on 11/03/2020 by Sesar Rodgers MD at [facility] N/A: Spine Medtronic Spine/Ortho [id number] / / Set Screw Lmbr Tsrh 3dx - [id number] Implanted:Qty: 4 on 12/21/2021 by Sesar Rodgers MD at [facility] N/A: Spine Medtronic Spine/Ortho [id number] / / Cnnctr Lmbr Sm Tsrh 3dx Offsettitnm - [id number] Implanted:Qty: 4 on 12/21/2021 by Sesar Rodgers MD at [facility] N/A: Spine Medtronic Spine/Ortho [id number] / / Marco Lmbr 45x5.5mm Tsrh 3d Cvd Titnm - [id number] Implanted:Qty: 1 on 12/21/2021 by Sesar Rodgers MD at [facility] N/A: Spine Medtronic Spine/Ortho [id number] / / Screw Lmbr Post 7.5x35mm Tsrh 3dx Og Thin Va - [id number] Implanted:Qty: 2 on 12/21/2021 by Sesar Rodgers MD at [facility] N/A: Spine Medtronic Spine/Ortho [id number] / / Screw Lmbr Post 7.5x40mm Tsrh 3dx Og Thin Va - [id number] Implanted:Qty: 2 on 12/21/2021 by Sesar Rodgers MD at [facility] N/A: Spine Medtronic Spine/Ortho [id number] / / [id number] bone 1-4mm 30cc Medtronic Chips Canclls Freeze Dried Implanted:Qty: 1 on 12/21/2021 by Sesar Rodgers MD at [facility] Explanted:at [facility] (Quantity not on file) N/A: Spine Medtronic Spine/Ortho 01/31/2026 [id number] / [id number] / Bone Matrix Lg Ii Infuse Bmp - [id number] Implanted:Qty: 1 on 12/21/2021 by Sesar Rodgers MD at [facility] N/A: Spine Medtronic Spine/Ortho 12/21/2022 [id number] / / [id number] Procedures Procedure Name Priority Date/Time Associated Diagnosis [...] unspecified hyperlipidemia type COLONOSCOPY 09/04/2022 7:44 AM HOG TRADER ANTI HCV Routine 09/18/2016 9:37 AM HOG TRADER Need for hepatitis C screening test from Last 3 Months or Most Recently Relevant to Health Maintenance Results * (ABNORMAL) CBC WITH AUTO DIFFERENTIAL (01/24/2024 11:53 AM CDT) WHITE BLOOD COUNT 4.8 4.5 - 11.0 thou/cu mm 01/24/2024 11:55 AM CDT [facility] RED BLOOD COUNT 3.74(L) 4.30 - 5.90 mil/cu mm 01/24/2024 11:55 AM CDT [facility] HEMOGLOBIN 12.3(L) 13.5 - 17.5 g/dL 01/24/2024 11:55 AM CDT [facility] HEMATOCRIT 35.6(L) 37.0 - 53.0 % 01/24/2024 11:55 AM CDT [facility] MCV 95 80 - 100 fL 01/24/2024 11:55 AM CDT [facility] MCH 32.9 26.0 - 34.0 pg 01/24/2024 11:55 AM CDT [facility] MCHC 34.6 32.0 - 36.0 g/dL 01/24/2024 11:55 AM CDT [facility] RDW 15.0 11.5 - 15.5 % 01/24/2024 11:55 AM CDT [facility] PLATELET COUNT 219 140 - 440 thou/cu mm 01/24/2024 11:55 AM CDT [facility] MPV 11.3(H) 6.5 - 11.0 fL 01/24/2024 11:55 AM CDT [facility] % NEUT 72.9 % 01/24/2024 11:55 AM CDT [facility] % LYMPH 16.7 % 01/24/2024 11:55 AM CDT [facility] % MONO 9.8 % 01/24/2024 11:55 AM CDT [facility] % EOS 0.2 % 01/24/2024 11:55 AM CDT [facility] % BASO 0.4 % 01/24/2024 11:55 AM CDT [facility] ABSOLUTE NEUTROPHILS 3.5 1.7 - 7.0 thou/cu mm 01/24/2024 11:55 AM CDT [facility] ABSOLUTE LYMPHOCYTES 0.8(L) 0.9 - 2.9 thou/cu mm 01/24/2024 11:55 AM CDT [facility] ABSOLUTE MONOCYTES 0.5 <0.9 thou/cu mm 01/24/2024 11:55 AM CDT [facility] ABSOLUTE EOSINOPHILS 0.0 <0.5 thou/cu mm 01/24/2024 11:55 AM CDT [facility] ABSOLUTE BASOPHILS 0.0 <0.3 thou/cu mm 01/24/2024 11:55 AM CDT [facility] Blood BLOOD SPECIMEN / Unknown Venipuncture / Unknown 01/24/2024 11:53 AM CDT 01/24/2024 11:53 AM CDT Sean Ramirez MD HEMATOLOGY [facility] [address] [place] [address], * (ABNORMAL) C-REACTIVE PROTEIN (01/24/2024 11:53 AM CDT) C-REACTIVE PROTEIN 1.2(H) <0.5 mg/dL 01/24/2024 10:38 PM CDT [facility] Blood BLOOD SPECIMEN / Unknown Venipuncture / Unknown 01/24/2024 11:53 AM CDT 01/24/2024 11:53 AM CDT Sean Ramirez MD CHEMISTRY Performing Organization Address City/[facility]/ZIP Co de Phone Number [facility] [address] [place] [id number], * (ABNORMAL) COMP METABOLIC PANEL (01/24/2024 11:53 AM CDT) SODIUM 137 136 - 145 mmol/L 01/24/2024 10:38 PM CDT [facility] POTASSIUM 4.3 3.5 - 5.1 mmol/L 01/24/2024 10:38 PM CDT [facility] CHLORIDE 99 98 - 107 mmol/L 01/24/2024 10:38 PM CDT [facility] CO2,TOTAL 24 22 - 29 mmol/L 01/24/2024 10:38 PM CDT [facility] ANION GAP 14 5 - 18 01/24/2024 10:38 PM CDT [facility] GLUCOSE 94 70 - 99 mg/dL 01/24/2024 10:38 PM CDT [facility] CALCIUM 9.7 8.8 - 10.2 mg/dL 01/24/2024 10:38 PM CDT [facility] BUN 16 8 - 23 mg/dL 01/24/2024 10:38 PM CDT [facility] CREATININE 0.97 0.70 - 1.20 mg/dL 01/24/2024 10:38 PM CDT [facility] BUN/CREAT RATIO 16 10 - 20 10:38 PM CDT [facility] eGFR 82(L) >90 mL/min/1.7 3m2 01/24/2024 10:38 PM T [facility] Comment:As of 2021, eG FR is calculated by the CKD-EPI creatinine equation without race adjustment. ??eGFR can be influenced by muscle mass, exercise, and diet. ??The reported eGFR is an estimation only and is only applicable if the renal function is stable. ALBUMIN 4.6 4.0 - 4.9 g/dL 01/24/2024 10:38 PM CDT [facility] PROTEIN,TOTAL 7.0 6.0 - 8.0 g/dL 01/24/2024 10:38 PM CDT [facility] BILIRUBIN,TOTAL 0.8 0.0 - 1.2 mg/dL 01/24/2024 10:38 PM CDT [facility] ALK PHOSPHATASE 100 40 - 129 IU/L 01/24/2024 10:38 PM CDT [facility] ALT (SGPT) 24 10 - 50 IU/L 01/24/2024 10:38 PM CDT [facility] AST (SGOT) 24 10 - 50 IU/L 01/24/2024 10:38 PM T [facility] Blood BLOOD SPECIMEN / Unknown Venipuncture / Unknown 01/24/2024 11:53 AM CDT 01/24/2024 11:53 AM CDT Sean Ramirez MD CHEMISTRY [facility] [address] [place] [address], [place] * (ABNORMAL) UA W/ SEDIMENT EXAM REFLEXED PER CRITERIA (01/24/2024 11:20 AM CDT) COLOR Yellow Yellow Color 01/24/2024 11:23 AM CDT [facility] CLARITY Clear Clear Clarity 01/24/2024 11:23 AM CDT [facility] SPECIFIC GRAVITY,URINE >=1.030(A) 1.010, 1.015, 1.020, 1.025 01/24/2024 11:23 AM CDT [facility] PH,URINE 6.0 6.0, 7.0, 8.0, 5.5, 6.5, 7.5, 8.5 01/24/2024 11:23 AM CDT [facility] UROBILINOGEN, QUALITATIVE Normal Normal EU/dl 01/24/2024 11:23 AM CDT [facility] PROTEIN, URINE Negative Negative mg/dL 01/24/2024 11:23 AM CDT [facility] GLUCOSE, URINE Negative Negative mg/dL 01/24/2024 11:23 AM CDT [facility] KETONES,URINE Negative Negative mg/dL 01/24/2024 11:23 AM CDT [facility] BILIRUBIN,URI NE Negative Negative 01/24/2024 11:23 AM CDT [facility] OCCULT BLOOD,URINE Negative Negative 01/24/2024 11:23 AM CDT [facility] NITRITE Negative Negative 01/24/2024 11:23 AM CDT [facility] LEUKOCYTE ESTERASE Negative Negative 01/24/2024 11:23 AM CDT [facility] Urine URINE SPECIMEN / Unknown Non-Blood / Unknown 01/24/2024 11:20 AM CDT 01/24/2024 11:20 AM CDT Sean Ramirez MD URINE [facility] [address] [place] [address], * (ABNORMAL) LIPID PANEL W REFLEX MEASURED LDL (03/22/2023 2:53 PM CDT) CHOLESTEROL,TOTAL 185 100 - 199 mg/dL 03/23/2023 1:13 AM CDT [facility] Comment: Cholesterol, Total Reference Ranges Desirable <200 mg/dL Borderline 200-239 mg/dL High >=240 mg/dL TRIGLYCERIDES 357(H) <150 mg/dL 03/23/2023 1:13 AM CDT [facility] HDL CHOLESTEROL 40(L) >40 mg/dL 1:13 AM CDT [facility] NON-HDL CHOLESTEROL 145(H) <145 mg/dl 03/23/2023 1:13 AM CDT [facility] CHOL/HDL RATIO 4.63(H) <4.50 03/23/2023 1:13 AM CDT [facility] LDL CHOLESTEROL 74 <=130 mg/dL 03/23/2023 1:13 AM T [facility] VLDL CHOLESTEROL 71(H) <=30 mg/dL 03/23/2023 1:13 AM CDT [facility] PROVIDER ORDERED STATUS RANDOM 03/23/2023 1:13 AM CDT [facility] Blood BLOOD SPECIMEN / Unknown Venipuncture / Unknown 03/22/2023 2:53 PM CDT 03/22/2023 2:55 PM CDT Cory Small MD CHEMISTRY [facility] [address] [place] [address], * COLONOSCOPY (09/04/2022 7:44 AM HOG TRADER) 09/04/2022 7:44 AM HOG TRADER Narrative Transcriptions Dawit Lamar MD - 09/04/2022 [...] adequate candidate for conscious sedation. The endoscope [id number] was passed through the anus andadvanced to [...] 7:44 AM Procedure Code(s): --- Professional --- 20882, Colonoscopy, flexible; with biopsy, single or multiple Diagnosis Code(s): --- Professional --- Z86.010, Personal history of colonicpolyps D12.2, Benign neoplasm of ascending colon K57.30, Diverticulosis of large intestine without perforation or abscess withoutbleeding CPT copyright 2020 [employer]. All rights reserved. The codes documented in this report are preliminary and upon cryptographic vulnerability analyst reviewmay be revised to meet current compliance requirements. Scope In: 8:12:01 AM Scope Withdrawal Time 0 hours 9 minutes 13 seconds Scope Out: 8:24:11 AM Dawit Lamar MD PROCEDURE ORD * ANTI HCV (09/18/2016 9:37 AM HOG TRADER) HEPATITIS C ANTIBODY Non-Reacti ve Non-Reacti ve 09/18/2016 5:48 PM HOG TRADER [facility] [employer] [facility] Blood BLOOD SPECIMEN / Unknown Venipuncture / Unknown 09/18/2016 9:37 AM HOG TRADER 09/18/2016 9:37 AM HOG TRADER Narrative [facility] - 09/18/2016 5:48 PM HOG TRADER Antibodies to HCV not detected; does not exclude the possibility of exposure to HCV. Cory Small MD SEND OUTS [facility] [facility] [address] [place] [address], from Last 3 Months or Most Recently Relevant to Health Maintenance Advance Directives * Full Code (Latest Code Status on File) Date Activated Date Inactivated Comments 12/21/2021 6:43 PM 12/23/2021 3:13 PM Question Answer Comments Code Status Discussion: Reviewed Preferences * Full Code Date Activated Date Inactivated Comments 11/03/2020 6:08 PM 11/05/2020 4:06 PM Question Answer Comments Code Status Discussion: Discussed Care Teams Enrichment Specialist Relationship Specialty Start Date End Date Cory Small MD [address] [place] [address] PCP - General 02/11/08
--- OUTSIDE RECORDS SUMMARY | 2024-04-06 09:07 | XMS_ITS | Continuity of Care Document ---
Author Organization [facility] Address [address] [place] [address] Phone Care Team Providers Care Jewelry Dipper Name Role Phone Sesar Rodgers MD Unavailable [...] nal Level(s) Posterior Instrumentation, 3-6 Segments Office/Outpatient Visit,[facility], [facility] 2020 Office/Outpatient Visit,[facility], Mod 2014 Advance Directives Directive Yes / No Effective Date File Name No Information Encounters Encounter Description Practice Location Reason(s) For Visit Diagnoses Date Provider Providers Copied on Encounter Office/Outpa tient Visit,Est, Mod [facility], [address], [place], [place], [id number] , [place] tel:[phone] [facility] Arthrodesis status 3 Ana Maria Kaba. [facility], [address] [place] [address], [id number], [place]. tel:[phone] Referring Provider: Cory Long, [employer] [address] [place], [address]. tel:[phone] Office/Outpa tient Visit,Est, Low [facility], [address], [facility] [place], [id number] , [place] tel:[phone] [facility] Arthrodesis status 2 Ana Maria Kaba. [facility], [address] [place] [address], [id number], [place]. tel:[phone] Referring Provider: Cory Long, [facility] [address] [place], [address]. tel:[phone] [facility], [address], [place], [place], [id number] , [place] [phone] [facility] Encounter for other specified surgical aftercare 2 Jovany Ballesteros. [facility], [address] [facility] [address], [place], [address], [place]. tel:[phone] Referring Provider: Cory Long, [employer] [address] [facility], [place], [address]. [phone] [facility], [address], [place], [place], [id number] , [place] tel:[phone] [facility] No Information 2 Jovany Ballesteros. [facility], [address], [place], [address], [place]. tel:[phone] Referring Provider: Cory Long, [employer] [address], [place], [address]. tel:[phone] [facility], [address], [place], [place], [id number] , [place] tel:[phone] [facility] No Information 2 Ana Maria Kaba. [facility], [address], [facility] [address], [place], [id number], [place]. tel:[phone] Referring Provider: Cory Long, [employer] [address] [facility], [place], [address]. tel:[phone] Office/Outpa tient Visit,Est, Mod [facility], [address], [place], [place], [id number] , [place] tel:[phone] [facility] Spinal stenosis, lumbar region with neurogenic claudication 2 Ana aMria Kaba. [facility], [address], [facility] [address], [place], [id number], [place]. tel:[phone] Referring Provider: Cory Long, [employer] [address], [place], [address]. tel:[phone] Office/Outpa tient Visit,Est, Mod [facility], [address], [place], [place], [id number] , [place] tel: [phone] [facility] Arthrodesis statusSpinal stenosis, lumbar region with neurogenic claudication 1 Ana Maria Kaba. [facility], [address], [address], [place], [place], [id number], [place]. [phone] Referring Provider: Cory Long, [employer] [address], [place], [address]. tel:[phone] Office/Outpa tient Visit,Est, Mod [facility], [address], [place], [place], [id number] , [place] tel: [phone] [facility] Arthrodesis status 1 Ana Maria Kaba. [facility], [address], [address], [place], [place], [id number], [place]. [phone] Referring Provider: Cory Long, [employer] [address], [place], [address]. tel:[phone] Office/Outpa tient Visit,Est, Mod [facility], [address], [place], [id number] , [place] tel: [phone] [facility] No Information 1 Ana Maria Kaba. [facility], [address], [address], [place], [place], [id number], [place]. tel:[phone] Referring Provider: Cory Long, [employer] [address], [place], [address]. tel:[phone] [facility], [address], [place], [place], [id number] , [place] tel: [phone] [facility] Arthrodesis status 1 No Information Referring Provider: Cory Long, [employer] [address], [place], [address]. tel:[phone] [facility], [address], [place], [place], [id number] , [place] tel: [phone] [facility] No Information No Information Referring Provider: Cory Long, [employer] [address] [facility], [place], [address]. tel:[phone] [facility], [address], [place], [place], [id number] , [place] [phone] [facility] No Information Ana Maria Kaba. [facility], [address] [place] [address], [address], [id number], [place]. tel:[phone] Referring Provider: Cory Long, [employer] [address] [facility], [place], [address]. tel:[phone] Office/Outpa tient Visit,New, Mod [facility], [address], [place], [place], [id number] , [place] [phone] [facility] No Information 1 Ana Maria Kaba. [facility], [address] [place] [address], [address], [id number], [place]. tel:[phone] Referring Provider: Cory Long, [employer] [address] [facility], [place], [address]. tel:[phone] Office/Outpa tient Visit,New, Mod [facility], [address], [place], [place], [id number] , [place] [phone] [facility] Spondylosis of unspecified site [facility] of [facility] 5 Ana Maria Kaba. [facility], [address] [place] [address], [address], [id number], [place]. tel:[phone] Referring Provider: Henrry Joseph, [facility] [address] [facility], [place], [address]. tel:[phone] Family History Family Member Type Diagnosis Age At Onset Problem (finding) Payers Payer name Insurance type Covered [place] [id number] Medicare [facility] [id number] Social History Type Description Quantity Date [...]
--- OUTSIDE RECORDS SUMMARY | 2024-04-06 09:07 | XMS_ITS | Continuity of Care Document ---
Author Organization [facility] Address [address] [place] [address] Phone Care Team Providers Care [employer] Name Role Phone Sesar Rodgers MD Unavailable [...] nal Level(s) Posterior Instrumentation, 3-6 Segments Office/Outpatient Visit,[facility] [place] 2020 Office/Outpatient Visit,[facility], Mod 2014 Advance Directives Directive Yes / No Effective Date File Name No Information Encounters Encounter Description Practice Location Reason(s) For Visit Diagnoses Date Provider Providers Copied on Encounter Office/Outpa tient Visit,Est, Mod [facility], [address], [place], [place], [id number] , [place] tel:[phone] [facility] Arthrodesis status 3 Ana Maria Kaba. [facility], [address] [place] [address], [id number], [place]. tel:[phone] Referring Provider: Cory Long, [employer] [address] [place], [address]. tel:[phone] Office/Outpa tient Visit,Est, Low [facility], [address], [facility] [place], [id number] , [place] tel:[phone] [facility] Arthrodesis status 2 Ana Maria Kaba. [facility], [address] [place] [address], [id number], [place]. tel:[phone] Referring Provider: Cory Long, [facility] [address] [place], [address]. tel:[phone] [facility], [address], [place], [place], [id number] , [place] [phone] [facility] Encounter for other specified surgical aftercare 2 Jovany Ballesteros. [facility], [address] [facility] [address], [place], [address], [place]. tel:[phone] Referring Provider: Cory Long, [facility] [address] [facility], [place], [address]. [phone] [facility], [address], [place], [place], [id number] , [place] tel:[phone] [facility] No Information 2 Jovany Ballesteros. [facility], [address], [place], [address], [place]. tel:[phone] Referring Provider: Cory Long, [address], [place], [address]. tel:[phone] [facility], [address], [place], [place], [id number] , [place] tel:[phone] [facility] No Information 2 Ana Maria Kaba. [facility], [address] [place], [facility] [address], [place], [id number], [place]. tel:[phone] Referring Provider: Cory Long, [address] [facility], [place], [address]. tel:[phone] Office/Outpa tient Visit,Est, Mod [facility], [address], [place], [place], [id number] , [place] tel:[phone] [facility] Spinal stenosis, lumbar region with neurogenic claudication 2 Ana Maria Kaba. [facility], [address], [facility] [address] [place], [id number], [place]. tel:[phone] Referring Provider: Cory Long, [address], [place], [address]. tel:[phone] Office/Outpa tient Visit,Est, Mod [facility], [address], [place], [place], [id number] , [place] tel: [phone] [facility] Arthrodesis statusSpinal stenosis, lumbar region with neurogenic claudication 1 Ana Maria Kaba. [facility], [address], [address], [place], [place], [id number], [place]. [phone] Referring Provider: Cory Long, [address], [place], [address]. tel:[phone] Office/Outpa tient Visit,Est, Mod [facility], [address], [place], [id number] , [place] tel: [phone] [facility] Arthrodesis status 1 Ana Maria Kaba. [facility], [address], [address], [place], [place], [id number], [place]. [phone] Referring Provider: Cory Long, [address], [place], [address]. tel:[phone] Office/Outpa tient Visit,Est, Mod [facility], [address], [place], [id number] , [place] tel: [phone] [facility] No Information 1 Ana Maria Kaba. [facility], [address], [address], [place], [place], [id number], [place]. tel:[phone] Referring Provider: Cory Long, [address], [place], [address]. tel:[phone] [facility], [address], [place], [id number] , [place] tel: [phone] [facility] Arthrodesis status 1 No Information Referring Provider: Cory Long, [address], [place], [address]. tel:[phone] [facility], [address], [place], [id number] , [place] tel: [phone] [facility] No Information No Information Referring Provider: Cory Long, [address] [facility], [place], [address]. tel:[phone] [facility], [address], [place], [place], [id number] , [place] [phone] [facility] No Information Ana Maria Kaba. [facility], [address] [place] [address], [address], [id number], [place]. tel:[phone] Referring Provider: Cory Long, [employer] [address] [facility], [place], [address]. tel:[phone] Office/Outpa tient Visit,New, Mod [facility], [address], [place], [place], [id number] , [place] [phone] [facility] No Information 1 Ana Maria Kaba. [facility], [address] [place] [address], [address], [id number], [place]. tel:[phone] Referring Provider: Cory Long, [address] [facility], [place], [address]. tel:[phone] Office/Outpa tient Visit,New, Mod [facility], [address], [place], [place], [id number] , [place] [phone] [facility] Spondylosis of unspecified site [facility] of [facility] 5 Ana Maria Kaba. [facility], [address] [place] [address], [address], [id number], [place]. tel:[phone] Referring Provider: Henrry Joseph, [facility] [address] [facility], [place], [address]. tel:[phone] Family History Family Member Type Diagnosis Age At Onset Problem (finding) Payers Payer name Insurance type Covered [place] Author[place] tion([id number] Medicare [facility] [id number] Social History Type Description Quantity Date [...]
--- NOTE | 2024-04-06 09:35 | W.PM.H&PU ---
History & Physical Update History & Physical Update H&P Reviewed and patient assessed: No changes noted
[2024-04-06] MEDS: LACTATED RINGERS 1000 ML 1,000 ML 100 ML IV ×2 (09:51→13:51)
[2024-04-06] MEDS: SODIUM CHLORIDE 0.9 % (FLUSH) 10 ML SYRINGE IVF (09:51)
[2024-04-06] MEDS: CEFAZOLIN 2 GM in 0.9 % SODIUM CHLORIDE Mini-bag 100 ML IVPB (13:00)
[2024-04-06] MEDS: ROPIVACAINE 0.5% 30 ML 150 MG INJECTION (13:35)
--- NOTE | 2024-04-06 14:12 | P.ORPRC_ITS ---
Procedure Note Date of procedure: 04/06/24 Procedure: PREOPERATIVE DIAGNOSIS: 1. Right knee patellar clunk following prior TKA POSTOPERATIVE DIAGNOSIS: 1. Right knee patellar clunk following prior TKA PROCEDURE: 1. Right knee arthroscopic extensive excisional debridement including debridement of superior pole patella patellar clunk scar, medial and lateral gutter scar tissue, anterior fat pad scar tissue, etc. SURGEON: Frank Em M.D. TELECOMMUNICATION EQUIPMENT REPAIRER: Bryant Edmonds PA-C. Of note, an assistant food service manager was critical for this case to aid in patient positioning, knee manipulation, instrument exchange, and closure. ANESTHESIA: General EBL: 5 mL TOURNIQUET: 35 minutes at 300 torr COMPLICATIONS: None evident INDICATIONS: The patient is a pleasant 74-year-old male who has previously undergone a right total knee arthroplasty. While their pain from the preoperative arthritic state has improved, they are now battled some patellar clunk phenomenon in the postoperative time. Initially this was simply an audible noise/palpable feeling, but is become more of a symptomatic process. As such, knee arthroscopy for debridement was recommended. FINDINGS: TKA implants all stable. No evidence of significant scratching or pathology. Regarding the scar, there was abundant scar in the suprapatellar pouch especially at the superior pole patella consistent with patellar clunk. There is also significant scar bands across the medial and lateral gutters especially near the tibial tray overlying the polyethylene component on the edges. On the medial side, the scar tissue appeared to be between the metal femoral component and the polyethylene that may have been getting pinched. All this was excisionally debrided with a Excalibur shaver. DESCRIPTION OF PROCEDURE: After a thorough discussion of risks, benefits, and alternatives, the patient was brought to the operating room and placed upon the operating table. Induction of anesthesia was undertaken as previously noted. 2g iv Ancef was administered within 1 hr of incision preoperatively. Appropriate time-out was performed identifying proper patient, site, and procedure. The right lower extremity was prepped and draped in the appropriate sterile fashion using ChloraPrep. The limb was exsanguinated and tourniquet inflated. Anterolateral and anteromedial portals were established with an 11 blade, and a diagnostic arthroscopy was performed. This identified the findings as noted above. Following the diagnostic arthroscopy, an extensive excisional debridement was performed with a torpedo shaver. Also, a 50 degree [place] cautery device was utilized for hemostasis. Following the debridement, the knee was placed through range of motion found have no significant crepitation. At this stage, the shaver was reinserted into the suprapatellar pouch and all remaining debris was evacuated. Instruments were removed, excess fluid was drained, and closure performed with 4-0 Monocryl with Steri-Strips. Dressings were applied, the tourniquet deflated, and the patient was awoken from anesthesia and transferred to the PACU in stable condition. PLAN: 1. Weightbear as tolerated operative extremity. Crutch / walker ambulation assistance PRN. 2. Ice, acetominophen and/or ibuprofen, and oxycodone for pain as needed. 3. Knee range of motion and quad sets/straight leg raise regularly 4. Follow up with PA visit in 1-2 weeks for a wound check and possibly to initiate physical therapy.
--- NOTE | 2024-04-06 14:28 | P.ANES_ITS ---
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
--- NOTE | 2024-04-06 14:43 | W.ANESCHARGE ---
Anesthesia Charges Start Date/Time Anesthesia Start Date: 04/06/24 Anesthesia Start Time: 12:53 Stop Date/Time Anesthesia Stop Date: 04/06/24 Anesthesia Stop Time: 14:21 Summary Extremes of Age - Over 70 or under 1: MDA
== END 2024-04-06 15:40 | disposition home or self-care (01) ==
LOC: OR 09:04
PROVIDERS: PCP Family Medicine; Visit Provider Orthopaedic Surgery Sports Medicine
PROC: (CPT 29870; principal; 2024-04-06 11:15)
DX: M25.861 Other specified joint disorders, right knee (principal); Z96.651 Presence of right artificial knee joint
CPT/HCPCS: 29877; 1400; 99100; J0690; J1100; J2250; J2405; J2704; J2795; J3010; J7120

== ENCOUNTER 2024-07-28 09:00 | Outpatient (RCR) | payer MEDICARE, BC, SELFPAY ==
--- NOTE | 2024-06-10 16:56 | PT.OPEX ---
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 HER RECENTLY UNDERWENT EXTENSIVE DEBRIDEMENT BUT CONTINUES TO HAVE THE SAME SYMPTOMS WITH SEVERE ANTERIOR KNEE PAIN THAT LIMITS HIS ABILITY TO STRAIGHTEN, WALK DOWN STAIRS, BIKE AND WALKING AFTER SITTING FOR ANY LENGTH OF TIME. HE IS SENT TO PHYSICAL THERAPY IN [place] TO REMEDIATE THE PAIN AND RETURN TO PARTICIPATING IN HIS ACTIVE LIFE. THE PHYSICIAN IS UNCLEAR, AT THIS TIME, THE CAUSATIVE FACTOR OF THE PAIN AND WILL RECOMMEND A SECOND OPINION SHOULD HE NOT FIND RELIEF THROUGH PHYSICAL THERAPY. Pain Comments /10 ANTERIOR KNEE Date of Last Physician Visit 06/09/24 Date of Surgery (If applicable) 04/06/24 Current Work Status Retired Assessment Assessment/Impression PATIENT IS A [address] MOSQUEDA TO EVAL AND TX RIGHT KNEE PAIN FOLLOWING AN ARTHROSCOPIC EXTENSIVE DEBRIDEMENT ON 04/05/24 D/T PCS . PMHX INCLUDES BUT NOT LIMITED. H/O RIGHT TKA , RIGHT KNEE PAIN W/WEAKNESS , RIGHT QUAD TENDONITIS, RIGHT PES PLANUS, HTN, HTN, HLD, GERD, BPV, H/O BBPV, LEFT KNEE ARTHROSCOPY (08/2000), LEFT TKA (10/03/05)H/O LEFT KNEE ARIANNE (01/2006), RECENT TRIGGER FINGER RELEASE, LUMBAR FUSION (11/03/2020) W/ARTHRODESIS STATUS. PATIENT REPORTS A CLUNK WITH EXTENDING AND BENDING HIS RIGHT KNEE AND PAIN GREATER THAN PRIOR TO SURGERY MEASURING A 10/10 AT WORST. HE DEMONSTRATES 0-120 ROM WITH A VISUAL AND AUDIBLE CLUNK WHEN EXTENDING FROM 0 TO 30-40 DEGREES PREDOMINATELY BUT CONTINUE PAIN TO 120. PROVOCATION TESTS ARE UNREMARKABLE NOTING TAUGHT AND FIBROUS QUAD TENDON. THERE IS NO EDEMA NOR EXCESSIVE HEAT EMANATING FROM KNEE. HE C/O OF ANTERIOR KNEE PAIN GREATER THEN QUAD TENDON THAT IS EXACERBATED WITH DESCENDING STAIRS, BIKING, AND INITIAL STEPS AFTER SITTING FOR ANY LENGTH OF TIME. HE IS HERE IN HOPES OF REMEDIATING THESE SYMPTOMS AND ALLOW FOR NORMAL FUNCTION OF HIS KNEE. HE IS APPROPRIATE FOR SKILLED PHYSICAL THERAPY TO ADDRESS PATELLAR FEMORAL MECHANICS, MANUAL THERAPY TO THE QUAD TENDON AND THE SUPERIOR POLE OF THE PATELLA TO ADDRESS ANY SCARING FURTHER COMPLICATING THE GLIDE OF THE PATELLA, POTENTIALLY DRY NEEDLING, AND OVERALL PAINFREE FUNCTIONAL MOBLITY AND STRENGTHENING. Primary Functional Limitations TRANSFERS, AMB, STAIRS, BENDING, STOOPING, SQUATING Plan of Care Rehabilitation Potential Fair Physical Therapy Goals 1. DECREASE R KNEE PAIN TO </3 /10 WITH DAILY ACTIVITIES AND WITH THE PROGRESSION OF PHYSICAL THERAPY PROGRAM OVER THE NEXT 3-4 WEEKS 2. IMPROVE R KNEE PAINFREE ROM TO WFL OVER THE NEXT 4-6 WEEKS FOR IMPROVED GAIT MECHANICS, RETURN TO HIS GYM PROGRAM WITH EASE, AND RETURN TO ASCENDING/DESCENDING STAIRS WITH RECIPROCAL GAIT WITH <2/ 10 PAIN 3. IMPROVE CORE/LE COMPLEX STRENGTH OVER THE NEXT 6-8 WEEKS FOR RETURN TO ALLOW AMB ON A VARIETY OF SURFACES, ASCENDING/DESCENDING STAIRS, AND STANDING/WALKING >15MIN WITHOUT A FLARE UP OF PAIN 4. PATIENT WILL BE INDEPENDENT WITH HIS HEP WITHING 8-12 WEEKS FOR PROGRESSION TOWARD ABOVE GOALS, ONGOING IMPROVEMENT OF PAIN/SYMPTOMS, ROM, STRENGTH, AND MOBILITY TO RETURN TO DAILY ACTIVITIES AND FAMILY CENTERED ACTIVITIES W/O FLARE UP OF PAIN/SYMPTOMS Coordination/Communication With Referral Source Treatment Plan/Direct Interventions Dry Needling,Electrical Stimulation,Gait Training,Heat ,Ice/Cold/Vasopneumatic,Joint Mobilization,Manual Therapy, Neuromuscular Re-ed,Self-Care/ Home Management,Therapeutic Activities,Therapeutic Exercises,Ultrasound Frequency/Duration 1-2X/WEEK Patient Will Be Discharged From Therapy Completion of LTG(s), Independent w/HEP Evaluation Billing Untimed Code Treatment Minutes 20 PT Eval No Charge No Complexity Moderate Certification Information Initial Certification Date 06/10/24 Ending Certification Date 09/07/24 Provider Signature Required Yes Provider Signature Shows Agreement With POC & Medical Necessity Physician NPI Number Write NPI# Here Physician Comment/Change : Physician Signature & Date Requested Please Sign/Date Here
== END 2024-10-06 14:27 | disposition home or self-care (01) ==
PROVIDERS: PCP Family Medicine; Visit Provider Orthopaedic Surgery Sports Medicine
DX: M22.2X1 Patellofemoral disorders, right knee (principal); Z96.651 Presence of right artificial knee joint; Z51.89 Encounter for other specified aftercare
CPT/HCPCS: 97035; 97140; 97162; 97530

== ENCOUNTER 2024-09-10 10:10 | Inpatient (IN) | payer MEDICARE, BC, SELFPAY ==
[2024-09-10] VITALS (24 sets, daily range): BP systolic 111–157; BP diastolic 47–88; PULSE 61–77; RESP 14–24; TEMP 36–36.6; O2SAT 87–97; BMI 30.5
[2024-09-10] MEDS: OXYCODONE (CR) 10 MG TAB.ER.12H PO (10:26)
[2024-09-10] MEDS: CELECOXIB 200 MG CAPSULE PO (10:26)
[2024-09-10] MEDS: ACETAMINOPHEN 500 MG TABLET 1000 MG PO ×3 (10:26→23:50)
[2024-09-10] MEDS: LACTATED RINGERS 1000 ML 1,000 ML 100 ML IV (10:30)
[2024-09-10] MEDS: SODIUM CHLORIDE 0.9 % (FLUSH) 10 ML SYRINGE IVF (11:20)
[2024-09-10] MEDS: MIDAZOLAM HCL 1 MG/ML inj IVP (11:34)
[2024-09-10] MEDS: fentaNYL 100 MCG/2 ML inj IVP (11:34)
--- NOTE | 2024-09-10 11:38 | P.NB_ITS ---
Nerve Block Nerve Block Time Seen by Provider: 11:37 Date Seen: 09/10/24 Type of block requested by surgeon for post-operative analgesia: adductor canal Side: right Time out performed: Yes Verification of patient name: Yes Verification of date of : Yes Site marking: site marked Name of person performing procedure: Mario Alberto Continuous monitoring Was continuous monitoring of O2 sat, B/P, quality assurance monitor chassis, recorded every 15 minutes?: Yes Procedure Checklist: sterile prep, needles and gloves Ultrasound guided. Images saved: Yes Medications given in 5ml increments after negative aspiration: Marcaine %: 0.25 mL: 15 Needle gauge: 20 Precedex (mcg): 25 Patient tolerated procedure well: Yes Block Charges Block Charge (with Pro Fee): Femoral Nerve Use of Ultrasound Machine for Block: Yes- US Guidance/pain block
--- NOTE | 2024-09-10 11:38 | W.ANESCHARGE ---
Anesthesia Charges Start Date/Time Anesthesia Start Date: 09/10/24 Anesthesia Start Time: 12:11 Stop Date/Time Anesthesia Stop Date: 09/10/24 Anesthesia Stop Time: 16:27 Summary Extremes of Age - Over 70 or under 1: MDA
--- NOTE | 2024-09-10 11:39 | P.NB_ITS ---
Nerve Block Nerve Block Time Seen by Provider: 11:37 Date Seen: 09/10/24 Type of block requested by surgeon for post-operative analgesia: geniculars Side: right Time out performed: Yes Verification of patient name: Yes Verification of date of : Yes Site marking: site marked Name of person performing procedure: Mario Alberto Continuous monitoring Was continuous monitoring of O2 sat, B/P, telemarketing supervisor, recorded every 15 minutes?: Yes Procedure Checklist: sterile prep, needles and gloves Ultrasound guided. Images saved: Yes Medications given in 5ml increments after negative aspiration: Marcaine %: 0.25 mL: 9 Needle gauge: 25 Patient tolerated procedure well: Yes Block Charges Block Charge (with Pro Fee): Genicular Nerve Block
--- NOTE | 2024-09-10 11:55 | SUR.PREOP ---
TIME?OUT:?1130 PT/RN/MDA?VERIFICATION?OF?SURGICAL?SITE,?PROCEDURE,?AND?CONSENT OBTAINED?PRIOR?TO?INVASIVE?PROCEDURE.
[2024-09-10] MEDS: CEFAZOLIN 2 GM INJ IVP (12:20)
[2024-09-10] MEDS: TRANEXAMIC ACID 100 MG/ML INJ 1000 MG IV (12:30)
[2024-09-10] MEDS: LACTATED RINGERS 1000 ML 500 ML 125 ML IV (15:07)
--- NOTE | 2024-09-10 15:53 | CRLHL7_ITS ---
For Patients: As a result of the Cures Act, medical imaging exams and procedure reports are released immediately into your electronic medical record. You may view this report before your referring provider. If you have questions, please contact your health care provider. Indication: Post op right TKA revision Technique: Two views right knee Findings/Impression: Hardware from a revised right total knee arthroplasty is in satisfactory position. Bone alignment is normal. No sign of acute fracture. Postop changes are within normal limits. Dictated by Jose Castellon MD @ 09/11/2024 9:13:15 AM (Electronically Signed)
--- NOTE | 2024-09-10 16:13 | PM.ORPRC ---
Procedure Note Date of procedure: 09/10/24 Procedure: PREOPERATIVE DIAGNOSIS: Failed Right total knee arthroplasty, secondary to aseptic loosening POSTOPERATIVE DIAGNOSIS: Failed Right total knee arthroplasty, secondary to aseptic loosening NAME OF OPERATION: Revision Right total knee arthroplasty SURGEON: Andrey Elaine MD [employer]TRIF[employer]AL OPERATOR:Kb OPA ANESTHESIA: Spinal plus general ESTIMATED BLOOD LOSS: 200 mL COMPLICATIONS: None SPECIMENS: None DRAINS: None PREOPERATIVE ANTIBIOTICS: Ancef 2 grams, antibiotic impregnated cement IMPLANTS: 1. J&J Attune revision CRS #6 posterior stabilized femur, 30 mm sleeve, 14 mm x 60 mm stem 2. # 6 rotating platform tibia, 45 mm sleeve, 14 mm x 60 mm stem 3. #6 posterior stabilized, 12 mm rotating platform polyethylene 4. 38 patella INDICATIONS: The patient is a 70-year-old who previously underwent total knee arthroplasty. The knee is painful and determined to be loose. Revision total knee arthroplasty was offered. The risks, benefits and expected outcomes were discussed in detail. These included but were not limited to: Infection, bleeding, injury to blood vessel or nerve, venous thromboembolism. All questions were answered to their satisfaction. Use of an assistant floor covering printer was necessary throughout the case for patient positioning and safety, soft tissue retraction, and closure. A modifier 22 should be added to this case. Because of the previous surgery there was a significant amount of scarring which made the exposure difficult. The case took significantly longer to complete because of this adding time and cost. PROCEDURE: Spinal anesthesia was administered. The patient was placed supine on the operating table. The assistant floor covering printer made sure the patient was positioned appropriately. The lower extremity was prepped and draped in the usual sterile fashion. The limb was exsanguinated with the Dawit bandage. The pneumatic tourniquet was inflated to 300 mmHg. The previously placed standard anterior incision was utilized with the knee in flexion. Subcutaneous dissection was sharply taken to the extensor mechanism. Full-thickness medial and lateral flaps were elevated. The assistant floor covering printer retracted the soft tissues and protected them throughout the case. A standard subvastus approach was made. The patella was subluxed. Scar was sharply debrided. The poly was removed. The oscillating saw with the ACL blade was used to free up the femoral component at the anterior, posterior and chamfer cuts both medially and laterally. The femoral component was tapped off with a tamp. There was minimal bone loss. The posterior capsule was subperiosteally released off of the femur in order to improve our anterior excursion and tibial exposure. Attention then turned to the femur. The femoral canal was reestablished with the Adson rongeur. The femoral canal was reamed on power to 15 mm. The 30 mm broach was used and had excellent rotational stability and press-Fit. The distal femoral cutting jig was secured to the broach. Rotation was set parallel to the trans epicondylar axis. The saw was used to freshen up the distal cut, removing 2 mm. The anterior, posterior and posterior chamfer cuts were freshened up. Augments were not necessary. The boxed cutting jig was placed and the box cuts were made. The broach was removed, the trial femoral component was placed and was an excellent fit. Attention then turned to the tibial component. Again the saw and flexible osteotomes were used to free up the implant medially, anteriorly and laterally. The extractor was then placed on the tibial component and it was tapped out of the bone freeing it up at cement prosthesis interface. There was a small amount of bone loss centrally. However the medial and lateral tibial condyles remain intact. Remaining cement was removed with an osteotome and rongeur. The tibial canal was reamed on power to 15 mm. This had excellent chatter. We then broached to 45 mm. This had excellent rotational stability. We freshened up the tibial cut on top of the broach. The broach was removed. The tibial trial was placed and seated on the proximal tibia. A trial polyethylene was placed. The knee was nicely balanced in both flexion and extension. Trial components were removed. At this point, the tourniquet was released while implants were assembled on the back table. It was down for 20 minutes. We then exsanguinated the limb and reinflated the tourniquet. Cancellous surfaces were irrigated with pulse lavage, then thoroughly dried, by the assistant floor covering printer. We cemented the tibial component, then the femoral component. We attempted to place a 14 mm polyethylene. After trying for 30 minutes We were unsuccessful. Therefore, the tourniquet was released. We spent another 30 minutes trying to get the polyethylene to reduce. However the knee was too tight. At this point, the spinal had worn off and the patient was getting uncomfortable. Therefore, general anesthesia was administered and the patient was paralyzed. We then placed the 12 mm polyethylene onto the tibial tray. The knee was brought into full extension. The knee was taken through a range of motion and was found to be nicely balanced in both flexion and extension. The patella tracks centrally. The assistant floor covering printer did a three minute dilute Betadine solution soak. The assistant floor covering printer irrigated the wound with 3 liters of normal saline via pulse lavage. The assistant floor covering printer reapproximated the extensor mechanism with #1 Vicryl in an interrupted [id number] fashion. The assistant floor covering printer then ran the extensor mechanism with a #1 PDO Stratafix. The assistant floor covering printer closed the subcutaneous tissues with a 3-0 Stratafix and the skin with a running 3-0 Stratafix in a subcuticular fashion. Glue was used to seal the skin. The assistant floor covering printer placed a dry dressing. Sponge and needle counts were correct x2. The patient tolerated the procedure well. There were no apparent complications. They were carefully transferred to the hospital bed and taken to the postanesthesia care unit in satisfactory condition. PLAN: The patient will be mobilized with physical therapy. Aspirin will be used for DVT prophylaxis. They will be discharged to home once medically appropriate.
--- NOTE | 2024-09-10 16:30 | W.ANESCHARGE ---
Anesthesia Charges Start Date/Time Anesthesia Start Date: 09/10/24 Anesthesia Start Time: 12:11 Stop Date/Time Anesthesia Stop Date: 09/10/24 Anesthesia Stop Time: 16:27
--- NOTE | 2024-09-10 16:40 | SUR.PHASEI ---
Patient came into PACU with oral airway in place, oral airway removed at 1640 when patient spit it out. No complaints of pain or nausea
--- NOTE | 2024-09-10 16:47 | SUR.PHASEI ---
Patient awake and talking, oxygen removed to watch oxygenation level, patient taking ice chips.
--- NOTE | 2024-09-10 16:56 | SUR.PHASEI ---
Patient meets anesthesia discharge criteria from PACU.
[2024-09-10] MEDS: HYDROmorphone 0.5 mg/0.5 ml inj IVP ×2 (17:28→18:31)
[2024-09-10] MEDS: LACTATED RINGERS 1000 ML 1,000 ML 75 ML IV (17:28)
[2024-09-10] MEDS: CEFAZOLIN 2 GM in 0.9 % SODIUM CHLORIDE Mini-bag 100 ML IVPB ×2 (17:47→23:51)
[2024-09-10] MEDS: ONDANSETRON 2 MG/ML inj 4 MG IVP (18:37)
--- NOTE | 2024-09-10 19:04 | PC.NURSE ---
End of shift summary: Pt arrived to the floor from PACU at 1715. Upon arrival to the room, he reported 9/10 acute right knee pain/soreness. Per PATROL COMMANDER, pt did not have any pain for them. Also noted, pt received spinal + nerve block for surgery and was transitioned to general anesthesia at about 3 hour time frame in the procedure. Since arriving, pt received x2 doses of PRN IV Dilaudid, the last dose being @ 1830 for 9/10 pain. He started having some nausea after the second dose so PRN IV Zofran given x1 dose @ 1835. Reports pain is slowly decreasing & he's able to doze off. While asleep, his O2 dips down to 87% which he quickly recovers while awake and after C&DB but 1L NC was applied for this immediate recovery period. PIV in right wrist infusing LR @ 75 mL/hr. He has not been out of bed nor has he voided yet. Right anterior knee dressing is C&D and needs reinforcing every once in awhile d/t the edges lifting. Active ice is in place along with venous foot pumps. LS are clear and bowel sounds diminished. Pt's , Sania, is at bedside.
--- NOTE | 2024-09-10 19:25 | P.IMCN_ITS ---
Date of Consult Patient: Meli Patient Consult date: 09/10/24 Requesting Physician: Orthopedics Primary Care Provider: Cory Small MD Consult Narrative Reason for consult: Medical Management Narrative: Stanley Melvin is a 74 year old male who presented to the hospital today for an elective R TKA revision with Dr. Elaine of Orthopedic Surgery. There were no surgical or anesthetic complications noted during procedure. Patient's H&P reviewed, PCP is Dr. Small. Past medical history significant for: BPH, BPPV History of blood clots: No Postoperative plan: Home with Stanley is having some nausea postoperatively, no other concerns for hospitalist team. Review of Systems Status of ROS: Reports: 10 or more systems reviewed and unremarkable except as noted in History and below [facility] Medical History (Updated 09/10/24 @ 19:27 by Daysi Salas MD) Rotator cuff tear, left ?M75.102 - Unspecified rotator cuff tear or rupture of left shoulder, not specified as traumatic (ICD-10) Tendinitis of right quadriceps tendon ?M76.891 - Other specified enthesopathies of right lower limb, excluding foot (ICD-10) Hypertension ?I10 - Essential (primary) hypertension (ICD-10) Weakness of right lower extremity ?R29.898 - Other symptoms and signs involving the musculoskeletal system (ICD-10) Unspecified essential hypertension ?I10 - Essential (primary) hypertension (ICD-10) Prediabetes ?R73.03 - Prediabetes (ICD-10) PONV (postoperative nausea and vomiting) ?R11.2 - Nausea with vomiting, unspecified (ICD-10) ?Z98.890 - Other specified postprocedural states (ICD-10) Obesity ?E66.9 - Obesity, unspecified (ICD-10) Motion sickness ?T75.3XXA - Motion sickness, initial encounter (ICD-10) Mixed hyperlipidemia ?E78.2 - Mixed hyperlipidemia (ICD-10) Leukopenia ?D72.819 - Decreased white blood cell count, unspecified (ICD-10) GERD (gastroesophageal reflux disease) ?K21.9 - Gastro-esophageal reflux disease without esophagitis (ICD-10) BPH (benign prostatic hyperplasia) ?N40.0 - Benign prostatic hyperplasia without lower urinary tract symptoms (ICD-10) Benign paroxysmal positional vertigo ?H81.10 - Benign paroxysmal vertigo, unspecified ear (ICD-10) Right ankle sprain ?S93.401A - Sprain of unspecified ligament of right ankle, initial encounter (ICD-10) Surgical History (Updated 09/10/24 @ 19:27 by Daysi Salas MD) Status post revision of total replacement of right knee ?Z96.651 - Presence of right artificial knee joint (ICD-10) S/P right knee arthroscopy (04/06/24) ?Z98.890 - Other specified postprocedural states (ICD-10) History of arthroscopy of right knee (04/06/24) ?Z98.890 - Other specified postprocedural states (ICD-10) History of arthroplasty of right knee (08/05/23) ?Z96.651 - Presence of right artificial knee joint (ICD-10) Hx of hernia repair ?Z98.890 - Other specified postprocedural states (ICD-10) ?Z87.19 - Personal history of other diseases of the digestive system (ICD-10) History of bunionectomy ?Z98.890 - Other specified postprocedural states (ICD-10) History of cholecystectomy ?Z90.49 - Acquired absence of other specified parts of digestive tract (ICD- 10) History of appendectomy ?Z90.49 - Acquired absence of other specified parts of digestive tract (ICD- 10) H/O left knee surgery (~1990) ?Z98.890 - Other specified postprocedural states (ICD-10) S/P left knee arthroscopy (09/11/00) ?Z98.890 - Other specified postprocedural states (ICD-10) S/P surgical manipulation of knee joint (01/31/06) ?Z98.890 - Other specified postprocedural states (ICD-10) History of carpal tunnel surgery of left wrist (05/07/18) ?Z98.890 - Other specified postprocedural states (ICD-10) S/P trigger finger release ?Z98.890 - Other specified postprocedural states (ICD-10) History of lumbar fusion (11/03/20) ?Z98.1 - Arthrodesis status (ICD-10) 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 He does have to walk some stairs to get into his house. Once on the upper level he can get around without stairs. He does not smoke. He occasionally drinks alcohol. What is your current living situation?: I presently have a place to live Problems where you live: no known problems Problems where you live details: Has stairs at home but able to manage In the past 12 months, utilities in danger of being shut off: no In past 12 months, lack of transportation kept you from medical appts, meetings, work, or getting things needed for daily living: no In the past 12 mos, have been you worried that your food would run out before you had money to buy more?: never true In the past 12 mos, the food you bought just didn't last and you didn't have money to buy more?: never true Highest level of school completed/degree received: Associate degree: occupational, technical, vocational program Smoking Status: Never smoker Do you use any of these nicotine containing products: None Second hand tobacco smoke exposure: No How often do you have a drink containing alcohol: 2-4 times a month Alcohol type: beer How many standard drinks containing alcohol do you have on a typical day: 1 or 2 How often do you have six or more drinks on one occasion: Never AUDIT-C Alcohol total score: 2 Non-prescribed substance use: denies use Caffeine: Yes (coffee) How often does anyone, including family, friends and others, physically hurt you : never How often does anyone, including family, friends and others, insult or talk down to you: never How often does anyone, including family, friends and others, threaten you with harm: never How often does anyone, including family, friends and others, scream or curse at you: never service: Yes Meds Home Medications and Allergies Home Medications ?Medication ?Instructions ?Recorded ?Confirmed ?Type ascorbic acid (vitamin C) 500 mg 0.5 g PO DAILY 08/05/23 09/08/24 History tablet multivitamin 1 tab PO DAILY 04/03/24 09/10/24 History tamsulosin 0.4 mg capsule 0.4 mg PO QDAY 09/04/24 09/10/24 History Allergies Allergy/AdvReac Type Severity Reaction Status Date / Time No Known Drug Allergies Allergy Verified 09/02/24 08:56 Exam Narrative: Exam Narrative: GEN: Alert and oriented, laying comfortably in bed, appears uncomfortable but nontoxic HEENT: EOMIs bilaterally, no scleral icterus CV: RRR, No concerning murmurs R: LCTA bilaterally without concerning wheezing Ext: wwp, no concerning edema Skin: No concerning skin lesions or rashes on exposed skin Neuro: Nonfocal Psych: Appropriate Const: Vital Signs, click to edit/add: Vital Signs - 24 hr 09/10/24 10:46 09/10/24 11:30 09/10/24 11:35 Temperature 97.9 F Pulse Rate 77 73 72 Respiratory Rate 16 16 16 Blood Pressure 120/68 115/75 112/69 Pulse Oximetry 94 94 94 Oxygen Delivery Me thod Room Air Nasal Cannula Nasal Cannula Oxygen Flow Rate 3 3 09/10/24 16:23 09/10/24 16:30 09/10/24 16:35 Temperature 97.2 F L Pulse Rate 75 76 75 Respiratory Rate 24 20 24 Blood Pressure 120/61 117/65 114/73 Pulse Oximetry 91 95 95 Oxygen Delivery Me thod Aerosol Mask Aerosol Mask Aerosol Mask Oxygen Flow Rate 6 6 6 09/10/24 16:40 09/10/24 16:45 09/10/24 16:50 Temperature Pulse Rate 73 71 69 Respiratory Rate 20 20 14 Blood Pressure 122/78 117/73 115/87 Pulse Oximetry 97 91 91 Oxygen Delivery Me thod Room Air Room Air Room Air Oxygen Flow Rate 0 0 0 09/10/24 16:55 09/10/24 17:00 09/10/24 17:05 Temperature 97.3 F L Pulse Rate 67 65 65 Respiratory Rate 14 14 14 Blood Pressure 117/69 118/69 119/68 Pulse Oximetry 91 94 94 Oxygen Delivery Me thod Room Air Room Air Room Air Oxygen Flow Rate 0 0 0 09/10/24 17:15 09/10/24 17:30 09/10/24 17:45 Temperature 96.8 F L 96.9 F L 97.2 F L Pulse Rate 62 63 66 Respiratory Rate 14 16 16 Blood Pressure 119/79 138/86 150/82 H Pulse Oximetry 94 96 96 Oxygen Delivery Me thod Room Air Room Air Room Air Oxygen Flow Rate 09/10/24 18:15 09/10/24 18:43 09/10/24 18:53 Temperature 97.5 F L 97.5 F L 97.5 F L Pulse Rate 64 61 66 Respiratory Rate 18 16 16 Blood Pressure 156/68 H 157/88 H 153/76 H Pulse Oximetry 92 94 87 L Oxygen Delivery Me thod Room Air Room Air Room Air Oxygen Flow Rate 09/10/24 18:54 Temperature Pulse Rate Respiratory Rate Blood Pressure Pulse Oximetry 93 Oxygen Delivery Me thod Nasal Cannula Oxygen Flow Rate 1 Assessment and Plan Assessment and plan (1) Status post revision of total replacement of right knee: Problem comment: - 09/10/24, Chele Status: Acute (2) Loosening of prosthesis of right knee joint: Status: Acute Plan - pain management and prophylaxis per orthopedic surgery team - continue home medications for comorbidities - anticipate routine postoperative course - updated at bedside, questions answered
[2024-09-10] MEDS: OXYCODONE 5 MG TABLET PO ×2 (22:09→23:50)
[2024-09-10] MEDS: SENNOSIDES 1 TAB TABLET 2 TAB PO (22:09)
[2024-09-10] MEDS: ASPIRIN 81 MG TABLET EC PO (22:10)
[2024-09-10] MEDS: MELATONIN 3 MG TABLET PO (23:50)
[2024-09-11 03:00] VITALS: BP 113/64; PULSE 73; RESP 16; TEMP 36.6; O2SAT 94
[2024-09-11] MEDS: ACETAMINOPHEN 500 MG TABLET 1000 MG PO ×2 (06:06→12:18)
--- NOTE | 2024-09-11 06:15 | PC.NURSE ---
End of shift report: Pleasant and cooperative with cares. Dressing to right knee is clean, dry and intact. Non pitting edema to right knee. Mild weakness to RLE. Pain to knee well managed with scheduled tylenol, prn oxycodone and active ice. Transfers and ambulates with SBA with gait belt and walker, tolerating ambulation welll and patient able to bear weight without increased pain. Diet advanced to regular diet, denies any nausea or vomiting.
[2024-09-11 07:15] LABS: Basophils Absolute Auto 0.01 K/uL (0.00-0.30); Basophils Percent Auto 0.1 % (0.0-3.0); Hematocrit 30.9 % (37.0-53.0); Hemoglobin* 10.1 gm/dL (13.5-17.5); Immature Granulocytes Abs Auto 0.03 K/uL (0.00-0.30); Immature Granulocytes Pct Auto 0.3 %; Lymphocytes Percent Auto 4.7 % (20-44); Mean Corpuscular HGB Conc 33 gm/dL (32-36); Mean Corpuscular Hemoglobin 32 pg (26-34); Mean Corpuscular Volume 99 fL (80-100); Monocytes Percent Auto 6.6 % (0.0-11.0); Neutrophils Percent Auto 88.3 % (42.0-72.0); Platelet Count* 211 K/uL (140-440); RDW Coefficient of Variation % 15.1 % (11.5-15.5); Red Blood Count 3.12 m/uL (4.30-5.90); White Blood Count* 8.75 K/uL (4.50-11.00)
[2024-09-11 07:16] LABS: Slide Review Reflex No
[2024-09-11 07:23] LABS: Potassium* 4.5 mmol/L (3.6-5.1); Sodium* 136 mmol/L (135-149)
[2024-09-11 07:24] LABS: INR 1.05 (0.91-1.10); Prothrombin Time 14.3 Seconds
[2024-09-11 07:26] LABS: Creatinine* 0.9 mg/dL (0.5-1.5); Est. Creatinine Clearance* 60.59; Estimated Glomerular Filt Rate 90 ml/min
[2024-09-11 07:27] LABS: Blood Urea Nitrogen* 20 mg/dL (7-30)
[2024-09-11 07:52] VITALS: BP 101/73; PULSE 72; RESP 18; TEMP 36.9; O2SAT 93; O2SAT 97
--- NOTE | 2024-09-11 07:58 | PM.ORPN ---
Subjective Subjective Time Seen by Provider: 07:58 Date Seen: 09/11/24 Principal diagnosis: Status post revision right knee replacement Interval history: Stanley has been moving a well since surgery he states. He will be discharging to home. He does not want oxycodone or Tylenol sent to his pharmacy. This will be canceled. Ortho Exam Narrative Exam Narrative: Alert and oriented x3. Patient is in no acute distress. Converses without labored breathing. Hearing is grossly intact. Ambulates with a walker. Examination of the right knee shows the dressing is not adhering well. There is no drainage or erythema or sign of infection. Small area of ecchymosis medial to mid incision area. CMS intact right lower extremity. Calf is soft and nontender. He is able to straight leg raise. Large hematoma anterior knee. Const Vital Signs, click to edit/add: Vital Signs - 24 hr 09/10/24 10:46 09/10/24 11:30 09/10/24 11:35 Temperature 97.9 F Pulse Rate 77 73 72 Pulse Rate [Right Pulse Oximeter] Respiratory Rate 16 16 16 Blood Pressure 120/68 115/75 112/69 Blood Pressure [Left Arm] Pulse Oximetry 94 94 94 Oxygen Delivery Method Room Air Nasal Cannula Nasal Cannula Oxygen Flow Rate 3 3 09/10/24 16:23 09/10/24 16:30 09/10/24 16:35 Temperature 97.2 F L Pulse Rate 75 76 75 Pulse Rate [Right Pulse Oximeter] Respiratory Rate 24 20 24 Blood Pressure 120/61 117/65 114/73 Blood Pressure [Left Arm] Pulse Oximetry 91 95 95 Oxygen Delivery Method Aerosol Mask Aerosol Mask Aerosol Mask Oxygen Flow Rate 6 6 6 09/10/24 16:40 09/10/24 16:45 09/10/24 16:50 Temperature Pulse Rate 73 71 69 Pulse Rate [Right Pulse Oximeter] Respiratory Rate 20 20 14 Blood Pressure 122/78 117/73 115/87 Blood Pressure [Left Arm] Pulse Oximetry 97 91 91 Oxygen Delivery Method Room Air Room Air Room Air Oxygen Flow Rate 0 0 0 09/10/24 16:55 09/10/24 17:00 09/10/24 17:05 Temperature 97.3 F L Pulse Rate 67 65 65 Pulse Rate [Right Pulse Oximeter] Respiratory Rate 14 14 14 Blood Pressure 117/69 118/69 119/68 Blood Pressure [Left Arm] Pulse Oximetry 91 94 94 Oxygen Delivery Method Room Air Room Air Room Air Oxygen Flow Rate 0 0 0 09/10/24 17:15 09/10/24 17:30 09/10/24 17:45 Temperature 96.8 F L 96.9 F L 97.2 F L Pulse Rate 62 63 66 Pulse Rate [Right Pulse Oximeter] Respiratory Rate 14 16 16 Blood Pressure 119/79 138/86 150/82 H Blood Pressure [Left Arm] Pulse Oximetry 94 96 96 Oxygen Delivery Method Room Air Room Air Room Air Oxygen Flow Rate 09/10/24 18:15 09/10/24 18:43 09/10/24 18:53 Temperature 97.5 F L 97.5 F L 97.5 F L Pulse Rate 64 61 66 Pulse Rate [Right Pulse Oximeter] Respiratory Rate 18 16 16 Blood Pressure 156/68 H 157/88 H 153/76 H Blood Pressure [Left Arm] Pulse Oximetry 92 94 87 L Oxygen Delivery Method Room Air Room Air Room Air Oxygen Flow Rate 09/10/24 18:54 09/10/24 19:15 09/10/24 20:15 Temperature 97.7 F 98 F Pulse Rate 68 70 Pulse Rate [Right Pulse Oximeter] Respiratory Rate 18 18 Blood Pressure 121/74 111/47 L Blood Pressure [Left Arm] Pulse Oximetry 93 95 94 Oxygen Delivery Method Nasal Cannula Oxygen Flow Rate 1 09/10/24 21:15 09/10/24 22:15 09/10/24 23:00 Temperature Pulse Rate 67 70 Pulse Rate [Right Pulse Oximeter] Respiratory Rate 18 18 20 Blood Pressure 124/71 148/83 H Blood Pressure [Left Arm] Pulse Oximetry 96 94 Oxygen Delivery Method Oxygen Flow Rate 09/10/24 23:00 09/11/24 03:00 Temperature 97.9 F Pulse Rate Pulse Rate [Right Pulse Oximeter] 73 Respiratory Rate 20 16 Blood Pressure Blood Pressure [Left Arm] 113/64 Pulse Oximetry 95 94 Oxygen Delivery Method Room Air Room Air Oxygen Flow Rate Assessment and Plan Assessment and plan (1) Status post revision of total replacement of right knee: Problem details: - 09/10/24Chele Status: Acute Assessment and Plan: Plan for discharge is today to home if they meet discharge criteria. DVT prophylaxis includes aspirin 81 mg twice daily x1 month, Compression stockings as needed for swelling. Frequent ambulation, every hour throughout the day. Remove dressing in 1 week. Observe wound and phone Orthopedics with any questions or concerns Return to clinic in 1 week for a wound check Return to clinic in 6 weeks with surgeon Minimize narcotic use. Wean off and discontinue soon as possible. Activities as tolerated. No strenuous activity. Outpatient physical therapy as scheduled. Ice and elevate the operative extremity. No restriction on ice. He does not want oxycodone or Tylenol. I will cancel this at his pharmacy.
[2024-09-11] MEDS: SENNOSIDES 1 TAB TABLET 2 TAB PO (08:27)
[2024-09-11] MEDS: OXYCODONE 5 MG TABLET PO ×2 (08:28→12:18)
[2024-09-11] MEDS: ASPIRIN 81 MG TABLET EC PO (08:28)
--- NOTE | 2024-09-11 09:27 | PM.ORPN ---
Subjective Subjective Time Seen by Provider: 08:20 Date Seen: 09/11/24 Principal diagnosis: Status post revision right knee replacement Interval history: Stanley is resting comfortably in his recliner. Doing well. C/o 4 out of 10 pain that is well managed with oxycodone. Denies chest pain, SOB, fever, chills. Reports he has numbness over his right medial gastroc muscle since his previous surgery. No acute concerns. For pain management, his is requesting a small script for oxycodone before the weekend just in case needed. Ortho Exam Narrative Exam Narrative: Incision/Dressing: Dressing appears clean and dry. No drainage present. Mepilex intact. Right knee appears moderately swollen but supple with no obvious erythema, fluctuance or excessive warmth. No ecchymosis or erythematous streaking. Warmth around the wound is appropriate. Ice is being utilized as needed. CMS: Intact distally with 2+ Dorsalis pedis and Posterior Tibial pulses. 5/5 motor strength dorsal and plantar flexion. Patient reports numbness over right medial gastroc muscle, which he has had since his previous surgery last year. Calf: Bilateral calves are supple, with no swelling, pain, tenderness, erythema, discoloration or coolness to the touch. Constitutional: Patient is alert and oriented x3. Patient is in no acute distress and converses without labored breathing. Patient is able to make decisions and demonstrates good insight. Patient is pleasant and cooperative. Affect is full range and appropriate for the circumstances. Const Vital Signs, click to edit/add: Vital Signs - 24 hr 09/10/24 10:46 09/10/24 11:30 09/10/24 11:35 Temperature 97.9 F Pulse Rate 77 73 72 Pulse Rate [Right Pulse Oximeter] Respiratory Rate 16 16 16 Blood Pressure 120/68 115/75 112/69 Blood Pressure [Left Arm] Pulse Oximetry 94 94 94 Oxygen Delivery Method Room Air Nasal Cannula Nasal Cannula Oxygen Flow Rate 3 3 09/10/24 16:23 09/10/24 16:30 09/10/24 16:35 Temperature 97.2 F L Pulse Rate 75 76 75 Pulse Rate [Right Pulse Oximeter] Respiratory Rate 24 20 24 Blood Pressure 120/61 117/65 114/73 Blood Pressure [Left Arm] Pulse Oximetry 91 95 95 Oxygen Delivery Method Aerosol Mask Aerosol Mask Aerosol Mask Oxygen Flow Rate 6 6 6 09/10/24 16:40 09/10/24 16:45 09/10/24 16:50 Temperature Pulse Rate 73 71 69 Pulse Rate [Right Pulse Oximeter] Respiratory Rate 20 20 14 Blood Pressure 122/78 117/73 115/87 Blood Pressure [Left Arm] Pulse Oximetry 97 91 91 Oxygen Delivery Method Room Air Room Air Room Air Oxygen Flow Rate 0 0 0 09/10/24 16:55 09/10/24 17:00 09/10/24 17:05 Temperature 97.3 F L Pulse Rate 67 65 65 Pulse Rate [Right Pulse Oximeter] Respiratory Rate 14 14 14 Blood Pressure 117/69 118/69 119/68 Blood Pressure [Left Arm] Pulse Oximetry 91 94 94 Oxygen Delivery Method Room Air Room Air Room Air Oxygen Flow Rate 0 0 0 09/10/24 17:15 09/10/24 17:30 09/10/24 17:45 Temperature 96.8 F L 96.9 F L 97.2 F L Pulse Rate 62 63 66 Pulse Rate [Right Pulse Oximeter] Respiratory Rate 14 16 16 Blood Pressure 119/79 138/86 150/82 H Blood Pressure [Left Arm] Pulse Oximetry 94 96 96 Oxygen Delivery Method Room Air Room Air Room Air Oxygen Flow Rate 09/10/24 18:15 09/10/24 18:43 09/10/24 18:53 Temperature 97.5 F L 97.5 F L 97.5 F L Pulse Rate 64 61 66 Pulse Rate [Right Pulse Oximeter] Respiratory Rate 18 16 16 Blood Pressure 156/68 H 157/88 H 153/76 H Blood Pressure [Left Arm] Pulse Oximetry 92 94 87 L Oxygen Delivery Method Room Air Room Air Room Air Oxygen Flow Rate 09/10/24 18:54 09/10/24 19:15 09/10/24 20:15 Temperature 97.7 F 98 F Pulse Rate 68 70 Pulse Rate [Right Pulse Oximeter] Respiratory Rate 18 18 Blood Pressure 121/74 111/47 L Blood Pressure [Left Arm] Pulse Oximetry 93 95 94 Oxygen Delivery Method Nasal Cannula Oxygen Flow Rate 1 09/10/24 21:15 09/10/24 22:15 09/10/24 23:00 Temperature Pulse Rate 67 70 Pulse Rate [Right Pulse Oximeter] Respiratory Rate 18 18 20 Blood Pressure 124/71 148/83 H Blood Pressure [Left Arm] Pulse Oximetry 96 94 Oxygen Delivery Method Oxygen Flow Rate 09/10/24 23:00 09/11/24 03:00 Temperature 97.9 F Pulse Rate Pulse Rate [Right Pulse Oximeter] 73 Respiratory Rate 20 16 Blood Pressure Blood Pressure [Left Arm] 113/64 Pulse Oximetry 95 94 Oxygen Delivery Method Room Air Room Air Oxygen Flow Rate Assessment and Plan Assessment and plan (1) Status post revision of total replacement of right knee: Problem details: DOS: 09/10/24Chele Status: Acute Assessment and Plan: - Complete 23 hour perioperative antibiotics. - PT/OT consults for education and assistance. Outpatient PT scheduled to begin 09/15. - Weight bear as tolerated with a walker for assistance. - Prescribed analgesics as needed. Patient is content with current narcotic medications. Minimize narcotic pain medication use; wean off and discontinue as soon as possible. Oxycodone #20 was e-prescribed. - DVT prophylaxis: aspirin 81 mg BID x 30 days. Also, frequent ambulation and ankle pumps when sedentary. - Social consult for discharge planning. - Anticipate patient will be discharged to home later today if the patient remains medically stable, pain is controlled and is safe with ambulation. - Return to clinic in 1 week for a wound check. - Return to clinic in [address] Elaine. - Phone Orthopedics with any questions or concerns. [phone]
[2024-09-11 11:11] VITALS: BP 109/61; PULSE 68; RESP 18; TEMP 36.6; O2SAT 97
--- NOTE | 2024-09-11 13:50 | PC.NURSE ---
Pt alert and oriented. Pt had complaints of pain ranging 0-5; see EMAR for intervention. Pt up with SBA with walker and gait belt. Pt's dressing is dry and intact. Pt has swelling on operative knee; Hospitalist assessed knee. Ortho was consulted and stated that Pt was okay for discharge and that this is a hematoma on the Pt's anterior knee and possible aspiration of this next week. Pt's VSS. Pt's IV removed; catheter intact. Pt discharged home with .
== END 2024-09-11 12:49 | disposition home or self-care (01) | DRG 940 ==
PROVIDERS: Admitting Provider Orthopaedic Surgery; PCP Family Medicine; Visit Provider Orthopaedic Surgery
PROC: 0SPC0JZ Removal of Synthetic Substitute from Right Knee Joint, Open Approach (ICD-10-PCS; CPT 27447; principal; 2024-09-10 11:45)
DX: T84.032D Mechanical loosening of internal right knee prosthetic joint, subsequent encounter (principal); L76.32 Postprocedural hematoma of skin and subcutaneous tissue following other procedure; I10 Essential (primary) hypertension; R73.03 Prediabetes; K21.9 Gastro-esophageal reflux disease without esophagitis; N40.0 Benign prostatic hyperplasia without lower urinary tract symptoms; E66.9 Obesity, unspecified; Z68.30 Body mass index [BMI] 30.0-30.9, adult; G89.18 Other acute postprocedural pain
CPT/HCPCS: 01402; 36415; 64447; 64454; 73560; 76942; 82565; 84132; 84295; 84520; 85025; 85610; 97110; 97116; 97161; 97165; 99100; A9270; C1776; J0330; J0665; J0690; J1100; J1171; J2250; J2405; J2704; J3010; J3490; J7120

== ENCOUNTER 2024-10-15 08:30 | Outpatient (RCR) | payer MEDICARE, BC, SELFPAY ==
--- NOTE | 2024-09-15 12:10 | PT.OPEX ---
PT [place] Outpatient Eval PT [facility] Outpatient Eval Start: 09/15/24 08:02 Freq: Status: Active Protocol: Document 09/15/24 08:02 RHONDA (Rec: 09/15/24 12:07 RHONDA [id number]) E-signed By Teresita Rutherford, PT Physical Therapy Outpatient Evaluation Insurance Information Recert Due Date 12/14/24 Insurance Name Medicare B Medical Diagnosis R TKA revision Treating Diagnosis R TKA revision Referring MD Dr. Elaine Subjective Preferred Name Stanley Subjective pain. Knee is swollen up from surgery. He says they told him not to elevate it. Taking pills about every 6 hours. Stairs for shower, going OK. He's been through 4- 5 surgeries now. He had a TKA last Aug, then a scar tissue debridement in November. Knee felt unstable medially, now a revision of TKA with a longer stem into tibia. He is baseline a poor sleeper. Hoping to get to NH in 7 weeks . 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 He has a torn L Rotator cuff as a co- morbidity, with plan to surgically repair in the spring. 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 Transfers: Offset R leg with sit/stand, UE assist on sit/ supine SLR: quad lag LE strength: L LE 5/5 grossly R LE: knee ext 4/5 Knee flexion 4/5 glute 4/5 DF 4+/5 pn+ stairs step to c heavy UE support Assessment Assessment/Impression Pt is a 74 yr old male a v revision of R TKA. He is impaired in functional mobility, pain control, unstable surface navigation, edema management and strength. He has had previous PT for knee operations and is familiar with exercises. He will require skilled intervention to imporve dynamic balance, resume full ROM. Primary Functional Limitations Stairs, outdoor walking, unassisted walking, transfers, pain Plan of Care Rehabilitation Potential Good Physical Therapy Goals Pt will demonstrate ability to transfer s UE support in 4 weeks to demonstrate improved functional strength. Pt will demonstrate step over step negotiation on stair while carrying 20# to improve IADL ability in 8 weeks. Pt will demonstrate indep floor transfer for improved indep in community in 12 weeks . Pt will be indep c HEP to maintain and progress gains made in therapy in 6 weeks. Pt will demonstrate marching on foam s UE support in 10 weeks for improved unstable terrain navigation. Treatment Plan/Direct Interventions Electrical Stimulation,Gait Training,Heat,Ice/Cold/ Vasopneumatic,Manual Therapy, Neuromuscular Re-ed,Self-Care/ Home Management,Therapeutic Activities,Therapeutic Exercises Frequency/Duration 1-2x/week for 12 weeks Patient Will Be Discharged From Therapy Completion of LTG(s),Skills Plateau,Independent w/HEP, Independently Progressing Evaluation Billing Untimed Code Treatment Minutes 30 PT Eval No Charge No Complexity Low Certification Information Initial Certification Date 09/15/24 Ending Certification Date 12/14/24 Provider Signature Required Yes Provider Signature Shows Agreement With POC & Medical Necessity Physician NPI Number Write NPI# Here Physician Comment/Change : Physician Signature & Date Requested Please Sign/Date Here
--- OUTSIDE RECORDS SUMMARY | 2024-09-24 15:24 | XMS_ITS | Clinical Summary ---
Author Organization [facility] Address [place], [place] [address] Care Team Providers Care Gerentological Physiotherapist Name Role Phone Cory Small MD Primary Care Provider Shadi Sinha MD Unavailable Allergies No known active allergies Medications multivitamin capsule Take 1 capsule by mouth once daily. 0 10/15/19 20 Active ascorbic acid, vitamin C, (VITAMIN C) 500 mg tablet Take 1 tablet by mouth once daily. 0 10/15/19 20 Active tamsulosin 0.4 mg capsuleIndicat ions:Urinary retention Take 1 Capsule (0.4 mg) by mouth once daily after a meal. 90 Capsule 3 08/31/20 24 Active oxyCODONE (ROXICODONE) 5 mg immediate release tabletIndicati ons:Chronic pain of right knee Take 1 Tablet (5 mg) by mouth every 6 hours if needed for Pain. 10 Tablet 09/07/20 24 Active iron,carbonyl- vitamin C (VITRON C) 65 mg iron- 125 mg Delayed-Releas e tablet Take 1 Tab by mouth once daily. 0 10/15/19 20 024 Discontin ued(*Eden ent states no longer taking) acetaminophen (TYLENOL EXTRA STRGTH) 500 mg tablet Take 1,000 mg by mouth every 6 hours if needed. Max acetaminophen dose: 4000mg in 24 hrs. 024 Discontin ued(*Eden ent states no longer taking) cholecalcifero l, Vitamin D3, 2,000 unit tablet Take 4,000 units by mouth once daily. 024 Discontin ued(*Eden ent states no longer taking) Active Problems Problem Noted Date Diagnosed Date Right knee pain 07/02/2024 s/p right knee arthroscopic scar tissue removal DOS: 04/06/[address] Plummer 07/02/2024 History of left total knee r eplacement DOS: [address] Brian 07/02/2024 It band syndrome, right 07/02/2024 Status post lumbar spinal fusion; L4-S1 1, 11/2021. 11/08/2020 GERD (gastroesophageal reflux disease) Adenomatous colon polyp 10/14/2015 Overview (09/07/2022): Colonoscopy 09/2015 polyp repeat in 5 years [...] Encounters Date Type Department Care Team Description 09/19/[address] [facility] [address] [place] [address] Shadi Sinha MD <No scans attached> 09/10/2024 Orders Only [facility] Scanner 1 scan: (1-Ord) [facility], XR KNEE RT 2V, 09/10/2024 09/07/2024 1:40 PM CMA Office Visit [facility] [address] [place] [address] Cory Small MD Preoperative Exam (DOS: 09/10/2024, right knee revision, Dr. Elaine, [facility]) 09/07/2024 9:25 AM CMA - 09/07/2024 11:59 PM CMA Hospital Encounter [facility] [address] [place] [address] Shadi Sinha MD Bladder stone 09/07/2024 Travel 09/03/2024 Travel 08/31/2024 11:00 AM CMA Office Visit [facility] [address] [place] [address] Shadi Sinha MD Consult (Urinary retention) 08/31/2024 Travel 08/26/2024 Travel 07/20/[address] [employer] [address] [address] Mohinder Ndiaye MD Questions (KNEE / REPLACEMENT ) 07/15/[address] [employer] [address] [address] Mohinder Ndiaye MD Results (blood test) 07/14/2024 2:10 PM CDT Orders Only [facility] [address] [place] [address] Lab, [facility] Lab 07/13/2024 Orders Only [address] [facility] [address] [place] [address] Mohinder Ndiaye MD Lab 07/13/2024 Travel 07/02/2024 2:10 PM CDT Ancillary Procedure [address] [place] [address] 07/02/2024 2:05 PM CDT Ancillary Procedure [address] [place] [address] 07/02/2024 2:00 PM CDT Office Visit [address] [employer] [address] [place] [address] Senthil, Mohinder Hairston MD Knee Pain/problem (right knee pain) 07/02/2024 Travel 06/28/2024 Travel from Last 3 Months Immunizations Name Administration Dates Next Due COVID-19 vaccine (5gig-Bio NTech 30mcg/0.3mL) 12YO+ BIVALENT PF, MDV 03/22/2023 Hepatitis A (Adult) 09/04/2011 Hepatitis B (Adult) 12/17/1996 Influenza, High-dose Inactivated 06/17/2024,07/24 Influenza, High-dose Quadriv alent Inactivated 06/25/2022,06/29/2021 Influenza, [...] Family History Medical History Relation Name Comments Heart Disease Father cabg around 66 Other Father Parkinsons Cancer Maternal Grandmother stomach Diabetes Maternal Grandmother late in life Anesthesia Problem Neg. Heart Disease Paternal Uncle early 50's Cancer Sister basel cell skin CA Stroke Sister Relation Name Status Comments Father Maternal Grandmother Neg. Paternal Uncle Sister Social History Tobacco Use Types Packs/Day Years Used Date Smoking Tobacco: Never Smokeless Tobacco: Never Tobacco Cessation:Counseling Given: No Alcohol Use Standard Drinks/Week Comments Yes 0 (1 standard drink = 0.6 oz pur e alcohol) occas PHQ-2 Answer Date Recorded PHQ-2 TOTAL SCORE 0 05/12/2024 Financial Resource Strain Answer Date R ecorded Difficulty of Paying Living Expenses Not on file 09/17/2021 Difficulty of Paying Living Expenses Not on file 09/17/2021 Sex and Gender Information Value Date Recorded Sex Assigned at Not on file Legal Sex Male 5:23 AM CMA Gender Identity Not on file Sexual Orientation Not on file Obstetrics History Last Filed Vital Signs Vital Sign Reading Time Taken Comments Blood Pressure 122/76 09/07/2024 1:34 PM CMA Pulse 79 09/07/2024 1:34 PM CMA Temperature 36.4 C (97.6 F) 12/23/2021 9:00 AM CDT Respiratory Rate 16 12/23/2021 9:00 AM CDT Oxygen Saturation 94% 09/07/2024 1:34 PM CMA Inhaled Oxygen Concentration - - Weight 94.3 kg (207 lb 12.8 oz) 09/07/2024 1:34 PM CMA Height 169.1 cm (5' 6.58) 09/07/2024 1:34 PM CS T Body Mass Index 32.96 09/07/2024 1:34 PM CMA Plan of Treatment Upcoming Encounters Date Type Department Care Team (Latest Contact Info) Description 10/05/2024 9:15 AM CMA Office Visit [facility] [address] [place] [address] Cory Small MD [address] [place] [address] 11/09/2024 7:30 AM CMA Hospital Encounter [facility] [address] [place] [address] Shadi Sinha MD [address] [place] [address] 11/09/2024 7:30 AM CMA - 11/09/2024 9:10 AM CMA Surgery [facility] [address] [place] [address] Shadi Sinha MD [address] [place] [address] Cystoscopy, laser cystolithalopaxy Scheduled Procedures Name Priority Associated Diagnoses Date/Ti me LITHOTRIPSY CYSTOSCOPY WITH LASER Elective Bladder stone 11/09/2024 7:30 AM CMA Health Maintenance Due Date Last Done Comments RSV vaccine for adults or (1 - Risk 60-74 years 1-dose series) 2010 Tetanus booster 11/22/2021 11/23/2011, 06/24, 01/13/2003 Depression screening for age 12+ 05/12/2025 05/12/2024, 03/22/2023, 06/11/2019, Additional history exists Medicare Wellness for age 65+ 05/13/2025, 03/22/2023, 09/18/2016 BMI (ht and wt on same day) for age 18+ 09/07/2025 09/07/2024, 04/02/2024, 08/01/2023, Additional history exists Colonoscopy through age 75 09/04/202709/04, 09/04/2022, 10/13/2015, Additional history exists Lipids for age 45-75 05/12/2029 05/12/2024, 03/22/2023, 12/14/2021, Additional history exists Tdap Completed 11/23/2011 Hepatitis C screening for ag e 18-79 Completed 09/18/2016 Zoster (shingles) series for age 50+ Completed 05/23/2019, 01/09/2019, 11/23/2011 Pneumococcal series for age 50+ Completed 03/22/2023, 09/18/2016, 08/30/2015 COVID-19 vaccine series Completed 06/17/20, 06/21/2023, 03/22/2023, Additional history exists Influenza for age 65+ Completed 06/17/2024 , 08/01/2023, 06/25/2022, Additional history exists Medical Devices Implanted Type Area Mixing And Molding Machine Operator Device Identifier Shelf Expiration Date Model / Serial / Lot Marco Lmbr 50x5.5mm Tsrh 3d Cvd [facility] - [id number] Implanted:Qty: 1 on 11/03/2020 by Sesar Rodgers MD at [facility] Implants N/A: Spine Medtronic Spine/Ortho [id number] / / Marco Lmbr 60x5.5mm Tsrh 3d Cvd Titnm - [id number] Implanted:Qty: 1 on 11/03/2020 by Sesar Rodgers MD at [facility] Spine Implants N/A: Spine Medtronic Spine/Ortho [id number] / / Marco Lmbr 50x5.5mm Tsrh 3d Cvd Titnm - [id number] Implanted:Qty: 1 on 12/21/2021 by Sesar Rodgers MD at [facility] Spine Implants N/A: Spine Medtronic Spine/Ortho [id number] / / Set Screw Lmbr Tsrh 3dx - [id number] Implanted:Qty: 6 on 11/03/2020 by Sesar Rodgers MD at [facility] N/A: Spine Medtronic Spine/Ortho [id number] / / Cnnctr Lmbr Sm Tsrh 3dx Offsettitnm - [id number] Implanted:Qty: 4 on 11/03/2020 by Sesar Rodgers MD at [facility] N/A: Spine Medtronic Spine/Ortho [id number] / / Cnnctr Lmbr Md Tsrh 3dx Offsettitnm - [id number] Implanted:Qty: 1 on 11/03/2020 by Sesar Rodgers MD at [facility] N/A: Spine Medtronic Spine/Ortho [id number] / / Cnnctr Lmbr 90 Deg Tsrh 3dx Offset Titnm - [id number] Implanted:Qty: 1 on 11/03/2020 by Sesar Rodgers MD at [facility] N/A: Spine Medtronic Spine/Ortho [id number] / / Screw Lmbr Post 6.5x35mm Tsrh 3dx Og Thin Va - [id number] Implanted:Qty: 1 on 11/03/2020 by Sesar Rodgers MD at [facility] N/A: Spine Medtronic Spine/Ortho [id number] / / Screw Lmbr Post 6.5x40mm Tsrh 3dx Og Thin Va - [id number] Implanted:Qty: 1 on 11/03/2020 by Sesar Rodgers MD at [facility] N/A: Spine Medtronic Spine/Ortho [id number] / / Screw Lmbr Post 6.5x45mm Tsrh 3dx Og Thin Va - [id number] Implanted:Qty: 4 on 11/03/2020 by Sesar Rodgers MD at [facility] N/A: Spine Medtronic Spine/Ortho [id number] / / Set Screw Lmbr Tsrh 3dx - [id number] Implanted:Qty: 4 on 12/21/2021 by Sesar Rodgers MD at [facility] N/A: Spine Medtronic Spine/Ortho [id number] / / Cnnctr Lmbr Sm Tsrh 3dx Offsettitnm - [id number] Implanted:Qty: 4 on 12/21/2021 by Sesar Rodgers MD at [facility] N/A: Spine Medtronic Spine/Ortho [id number] / / Marco Lmbr 45x5.5mm Tsrh 3d Cvd Titnm - [id number] Implanted:Qty: 1 on 12/21/2021 by Sesar Rodgers MD at [facility] N/A: Spine Medtronic Spine/Ortho [id number] / / Screw Lmbr Post 7.5x35mm Tsrh 3dx Og Thin Va - [id number] Implanted:Qty: 2 on 12/21/2021 by Sesar Rodgers MD at [facility] N/A: Spine Medtronic Spine/Ortho [id number] / / Screw Lmbr Post 7.5x40mm Tsrh 3dx Og Thin Va - [id number] Implanted:Qty: 2 on 12/21/2021 by Sesar Rodgers MD at [facility] N/A: Spine Medtronic Spine/Ortho [id number] / / [id number] 1-4mm 30cc Medtronic Chips Canclls Freeze Dried Implanted:Qty: 1 on 12/21/2021 by Sesar Rodgers MD at [facility] Explanted:at [facility] (Quantity not on file) N/A: Spine Medtronic Spine/Ortho 01/31/2026 [id number] / [id number] / Bone Matrix Lg Ii Infuse Bmp - [id number] Implanted:Qty: 1 on 12/21/2021 by Sesar Rodgers MD at [facility] N/A: Spine Medtronic Spine/Ortho 12/21/2022 [id number] / / [id number] Procedures Procedure Name Priority Date/Time Associated Diagnosis Comments SCAN-RADIOLOGY REPORT 09/10/2024 12:00 AM CMA HEMOGLOBIN Routine 09/07/2024 2:09 PM CMA Anemia of unknown etiology CT PELVIS WO Routine 09/07/2024 9:46 AM CMA Bladder stone [place] NANCY POST-VOIDING RESIDUAL URINE&/BLADDER CAP Routine 08/31/2024 12:00 AM CMA Bladder stone SEDIMENTATION RATE Routine 07/14/2024 2: 18 PM CDT It band syndrome, right s/p right total knee arthroplasty DOS: 08/05/[address] Plummer C-REACTIVE PROTEIN Routine 07/14/2024 2: 18 PM CDT It band syndrome, right s/p right total knee arthroplasty DOS: 08/05/[address] Plummer XR KNEE WB 3 VIEWS BILATERAL AND 1 VIEW RIGHT Routine 07/02/2024 2:11 PM CDT Right knee pain, unspecified chronicity XR LEG LENGTH Routine 07/02/2024 2:11 PM CDT Right knee pain, unspecified chronicity LIPID PANEL W REFLEX MEASURED LDL Routine 05/12/2024 10:30 AM CDT Hyperlipidemia, unspecified hyperlipidemia type COLONOSCOPY 09/04/2022 7:44 AM CMA ANTI HCV Routine 09/18/2016 9:37 AM CMA Need for hepatitis C screening test from Last 3 Months or Most Recently Relevant to Health Maintenance Results * SCAN-RADIOLOGY REPORT (09/10/2024 12:00 AM CMA) Anatomical Region Laterality Modality Other us Scanner OTHER Final Result * (ABNORMAL) HEMOGLOBIN (09/07/2024 2:09 PM CMA) HEMOGLOBIN 12.5(L) 13.2 - 17.1 g/dL [facility] Blood BLOOD SPECIMEN / Unknown 09/07/2024 2:09 PM CMA 09/07/2024 2:09 PM CMA oCry Small MD HEMATOLOGY Final Result [facility] [address] [place] [address], [facility] [address] [place] [address] * CT PELVIS WO (09/07/2024 9:46 AM CMA) Anatomical Region Laterality Modality Pelvis, Abdomen, PROSTATE, BLADDER Computed Tomography 09/07/2024 10:1 0 AM CMA Narrative 09/07/2024 10:10 AM CMA For Patients: As a result of the Century Cures Act, medical imaging exams and procedure reports are released immediately into your electronic medical record. You may view this report before your referring provider. If you have questions, please contact your health care provider. INDICATION: Bladder stone seen on ultrasound. TECHNIQUE: CT pelvis without contrast. COMPARISON: None. Study confirms a 10 x 8.5 x 5 mm calculi in the right posterior bladder. Difficult to determine if this is UPJ or free within the bladder. There is prostatomegaly with mild impression on the bladder base. Bladder is distended. Wall is smooth. No bladder mass identified. Inferior aspect of the kidneys are partially included in the study and demonstrate single nonobstructing calculi bilaterally and a small round hypodensities which are presumably cysts. No ureteric calculi or evidence of hydronephrosis/hydroureter. Extensive colonic diverticulosis without evidence for diverticulitis, inflammation or obstruction. No free fluid or free air. Calcified aorta. No lymphadenopathy. No abdominal wall hernia. Chronic degenerative and hardware fusion lumbar spine. Impression : 1. 10 mm calculi posterior right bladder is confirmed. No hydroureter or hydronephrosis. Moderate prostatomegaly. 2. Limited visualization of the kidneys demonstrate bilateral nephrolithiasis and presumed renal cysts. 3. Diverticulosis. Atherosclerotic disease. Lumbar fusion and degenerative spine. Please note that all CT scans at this facility use dose modulation, iterative reconstruction, and/or weight-based dosing when appropriate to reduce radiation dose to as low as reasonably achievable. Dictated by Shekhar Glass MD @ 09/07/2024 10:10:11 AM (Electronically Signed) Procedure Note Mau Glass MD - 09/07/2024 For Patients: As a result of the Cures Act, medical imagingexams and procedure reports are released immediately into your electronicmedical record. You may view this report before your referring provider.If you have questions, please contact your health care provider. INDICATION: Bladder stone seen on ultrasound. TECHNIQUE: CT pelvis without contrast. COMPARISON: None. Study confirms a 10 x 8.5 x 5 mm calculi in the right posteriorbladder. Difficult to determine if this is UPJ or free within the bladder.There is prostatomegaly with mild impression on the bladder base. Bladderis distended. Wall is smooth. No bladder mass identified. Inferior aspect of the kidneys are partially included in the study anddemonstrate single nonobstructing calculi bilaterally and a small roundhypodensities which are presumably cysts. No ureteric calculi or evidenceof hydronephrosis/hydroureter. Extensive colonic diverticulosis without evidence for diverticulitis,inflammation or obstruction. No free fluid or free air. Calcified aorta.No lymphadenopathy. No abdominal wall hernia. Chronic degenerative and hardware fusion lumbarspine. Impression : 1. 10 mm calculi posterior right bladder is confirmed. No hydroureter orhydronephrosis. Moderate prostatomegaly. 2. Limited visualization of the kidneys demonstrate bilateralnephrolithiasis and presumed renal cysts. 3. Diverticulosis. Atherosclerotic disease. Lumbar fusion and degenerativespine. Please note that all CT scans at this facility use dose modulation,iterative reconstruction, and/or weight-based dosing when appropriate toreduce radiation dose to as low as reasonably achievable. Dictated by Shekhar Glass MD @ 09/07/2024 10:10:11 AM (Electronically Signed) Shadi Sinha MD CT Final Result * [place] NANCY POST-VOIDING RESIDUAL URINE&/BLADDER CAP (08/31/2024 12:00 AM CMA) us Shadi Sinha MD PB - URINARY SYSTEM SE RVICES Final Result * SEDIMENTATION RATE (07/14/2024 2:18 PM CDT) SED RATE BY MODIFIED MONTSERRATERGREN 2 < OR = 20 mm/h [facility] Blood BLOOD SPECIMEN / Unknown 07/14/2024 2:18 PM CDT 07/14/2024 2:19 PM CDT Narrative [facility] - 07/15/2024 4:31 AM CDT FASTING:NO FASTING: NO Mohinder Ndiaye MD HEMATOLOGY Ally l Result Performing Organization Address [facility]/ZIP Co de Phone Number [email or web address] [address] [address], [facility] [address] [place] [address] * C-REACTIVE PROTEIN (07/14/2024 2:18 PM CDT) C-REACTIVE PROTEIN <3.0 <8.0 mg/L [facility] Blood BLOOD SPECIMEN / Unknown 07/14/2024 2:18 PM CDT 07/14/2024 2:19 PM CDT Narrative [facility] - 07/15/2024 11:40 AM CDT FASTING:NO FASTING: NO Mohinder Ndiaye MD CHEMISTRY Ally l Result [email or web address] [address] [place] [place] [address], [place] [phone] [facility] [address] [place] [address] * XR KNEE WB 3 VIEWS BILATERAL AND 1 VIEW RIGHT (07/02/2024 2:11 PM CDT) Anatomical Region Laterality Modality KNEES, KNEE R Computed Radiogr aphy Impressions 07/02/2024 8:48 PM CDT Bilateral total knee arthroplasties in good position. All services were personally performed by Mohinder Ndiaye MD, MSTYLER. Documentation performed by Penelope Britt ATC based on my observation of services performed and provider statements to me. Mohinder Ndiaye MD, MSTYLER 07/02/2024 RADIOLOGY READ OF STANDING FULL LENGTH EXTREMITY VIEWS This radiology exam was performed at the [facility] and interpreted by Mohinder Ndiaye MD, MS, TYLER. HISTORY: A 74 y.o. male with history of bilateral TKA. TECHNICAL: Weightbearing views were obtained consisting of multiple sequential AP views of the pelvis, femora, knees, tibiae and ankles bilaterally. FINDINGS: Hips: RIGHT Hip: There is No osteoarthritis with evidence of no evidence of joint space narrowing, osteophytes, sclerosis, or cysts.. LEFT Hip: There is No osteoarthritis with evidence of no evidence of joint space narrowing, osteophytes, sclerosis, or cysts.. Mechanical alignment of the RIGHT lower extremity through the knee: Neutral Mechanical alignment of the LEFT lower extremity through the knee: Neutral Right Knee Status post right Attune Total Knee Arthroplasty. Femur tibia and patella have been resurfaced. Components in good position. Cement is seen at all interfaces. No evidence of loosening, subsidence, or fracture. Left Knee Status post left Sigma Total Knee Arthroplasty. Femur tibia and patella have been resurfaced. Components in good position. Cement is seen at all interfaces. No evidence of loosening, subsidence, or fracture. The leg lengths are equal No evidence of fracture or dislocation. IMPRESSION: Bilateral total knee arthroplasties in good position . All services were personally performed by Mohinder Ndiaye MD, MS, TYLER. Documentation performed by Penelope Britt ATC based on my observation of services performed and provider statements to me. Mohinder Ndiaye MD, MS, TYLER 07/02/2024 Narrative 07/02/2024 8:48 PM CDT RADIOLOGY READ OF 3 VIEWS BILATERAL AND 1 LATERAL VIEW OF THE right KNEE(S) This radiology exam was performed at the [facility]. HISTORY: A 74 y.o. male with a history of Prior Total Knee Replacement involving the right knee. TECHNICAL: Weightbearing views were obtained consisting of bilateral AP, sunrise and woods views and one lateral view of the right knee(s). FINDINGS: Right Knee Status post right Attune Total Knee Arthroplasty. Femur tibia and patella have been resurfaced. Components in good position. Cement is seen at all interfaces. No evidence of loosening, subsidence, or fracture. Left Knee Status post left Sigma Total Knee Arthroplasty. Femur tibia and patella have been resurfaced. Components in good position. Cement is seen at all interfaces. No evidence of loosening, subsidence, or fracture. No evidence of fracture or dislocation. us Mohinder Ndiaye MD GENERAL IMAGING Ally l Result * XR LEG LENGTH (07/02/2024 2:11 PM CDT) Anatomical Region Laterality Modality LEGS, FEMURS Computed Radiogr aphy Impressions 07/02/2024 8:48 PM CDT Bilateral total knee arthroplasties in good position. All services were personally performed by Mohinder Ndiaye MD, MS, TYLER. Documentation performed by Penelope Britt ATC based on my observation of services performed and provider statements to me. Mohinder Ndiaye MD, MS, TYLER 07/02/2024 RADIOLOGY READ OF STANDING FULL LENGTH EXTREMITY VIEWS This radiology exam was performed at the [facility] and interpreted by Mohinder Ndiaye MD, MS, TYLER. HISTORY: A 74 y.o. male with history of bilateral TKA. TECHNICAL: Weightbearing views were obtained consisting of multiple sequential AP views of the pelvis, femora, knees, tibiae and ankles bilaterally. FINDINGS: Hips: RIGHT Hip: There is No osteoarthritis with evidence of no evidence of joint space narrowing, osteophytes, sclerosis, or cysts.. LEFT Hip: There is No osteoarthritis with evidence of no evidence of joint space narrowing, osteophytes, sclerosis, or cysts.. Mechanical alignment of the RIGHT lower extremity through the knee: Neutral Mechanical alignment of the LEFT lower extremity through the knee: Neutral Right Knee Status post right Attune Total Knee Arthroplasty. Femur tibia and patella have been resurfaced. Components in good position. Cement is seen at all interfaces. No evidence of loosening, subsidence, or fracture. Left Knee Status post left Sigma Total Knee Arthroplasty. Femur tibia and patella have been resurfaced. Components in good position. Cement is seen at all interfaces. No evidence of loosening, subsidence, or fracture. The leg lengths are equal No evidence of fracture or dislocation. IMPRESSION: Bilateral total knee arthroplasties in good position . All services were personally performed by Mohinder Ndiaye MD, MS, TYLER. Documentation performed by Penelope Britt ATC based on my observation of services performed and provider statements to me. Mohinder Ndiaye MD, MS, TYLER 07/02/2024 Narrative 07/02/2024 8:48 PM CDT RADIOLOGY READ OF 3 VIEWS BILATERAL AND 1 LATERAL VIEW OF THE right KNEE(S) This radiology exam was performed at the [facility]. HISTORY: A 74 y.o. male with a history of Prior Total Knee Replacement involving the right knee. TECHNICAL: Weightbearing views were obtained consisting of bilateral AP, sunrise and woods views and one lateral view of the right knee(s). FINDINGS: Right Knee Status post right Attune Total Knee Arthroplasty. Femur tibia and patella have been resurfaced. Components in good position. Cement is seen at all interfaces. No evidence of loosening, subsidence, or fracture. Left Knee Status post left Sigma Total Knee Arthroplasty. Femur tibia and patella have been resurfaced. Components in good position. Cement is seen at all interfaces. No evidence of loosening, subsidence, or fracture. No evidence of fracture or dislocation. us Mohinder Ndiaye MD GENERAL IMAGING Ally l Result * LIPID PANEL W REFLEX MEASURED LDL (05/12/2024 10:30 AM CDT) CHOLESTEROL,TOTAL 170 100 - 199 mg/dL 05/12/2024 6:42 PM CDT [facility] [employer] Comment: Cholesterol, Total Reference Ranges Desirable <200 mg/dL Borderline 200-239 mg/dL High >=240 mg/dL TRIGLYCERIDES 148 <150 mg/dL 05/12/2024 6:42 PM CDT [facility] HDL CHOLESTEROL 48 >40 mg/dL 6:42 PM CDT [facility] NON-HDL CHOLESTEROL 122 <145 mg/dl 05/12/2024 6:42 PM CDT [facility] CHOL/HDL RATIO 3.54 <4.50 05/12/2024 6:42 PM CDT [facility] LDL CHOLESTEROL 92 <=130 mg/dL 05/12/2024 6:42 PM CDT [facility] VLDL CHOLESTEROL 30 <=30 mg/dL 05/12/2024 6:42 PM CDT [facility] LABORATORY PROVIDER ORDERED STATUS RANDOM 05/12/2024 6:42 PM CDT [facility] Blood BLOOD SPECIMEN / Unknown Venipuncture / Unknown 05/12/2024 10:30 AM CDT 05/12/2024 10:31 AM CDT Cory Small MD CHEMISTRY Final Result Performing Organization Address City/State/[facility] Co de Phone Number [facility] [address] [place] [id number], [place] * COLONOSCOPY (09/04/2022 7:44 AM CMA) 09/04/2022 7:44 AM CMA Narrative Transcriptions Dawit Lamar MD - 09/04/2022 [...] adequate candidate for conscious sedation. The endoscope [id number] was passed through the anus andadvanced to [...] 7:44 AM Procedure Code(s): --- Professional --- 40049, Colonoscopy, flexible; with biopsy, single or multiple Diagnosis Code(s): --- Professional --- Z86.010, Personal history of colonicpolyps D12.2, Benign neoplasm of ascending colon K57.30, Diverticulosis of large intestine without perforation or abscess withoutbleeding CPT copyright 2020 [employer]. All rights reserved. The codes documented in this report are preliminary and upon primary school teacher librarian reviewmay be revised to meet current compliance requirements. Scope In: 8:12:01 AM Scope Withdrawal Time 0 hours 9 minutes 13 seconds Scope Out: 8:24:11 AM us Dawit Lamar MD PROCEDURE ORD Final Res ult * ANTI HCV (09/18/2016 9:37 AM CMA) HEPATITIS C ANTIBODY Non-Reacti ve Non-Reacti ve 09/18/2016 5:48 PM CMA [facility] Blood BLOOD SPECIMEN / Unknown Venipuncture / Unknown 09/18/2016 9:37 AM CMA 09/18/2016 9:37 AM CMA Narrative [facility] - 09/18/2016 5:48 PM CMA Antibodies to HCV not detected; does not exclude the possibility of exposure to HCV. us Cory Small MD SEND OUTS Final Result [facility] [address] [place] [address], [place] from Last 3 Months or Most Recently Relevant to Health Maintenance Insurance [employer] [place] ONLY MEDICARE PART A HB ONLY [employer] [place] BL[place] ONLY MEDICARE PART B HB ONLY MEDICARE PART B HB ONLY [employer] [place] BL[place] HB ONLY MEDICARE PART A HB ONLY [employer] [place] BLUE MR PB ONLY Advance Directives * Full Code (Latest Code Status on File) Date Activated Date Inactivated Comments 12/21/2021 6:43 PM 12/23/2021 3:13 PM Question Answer Comments Code Status Discussion: Reviewed Preferences * Full Code Date Activated Date Inactivated Comments 11/03/2020 6:08 PM 11/05/2020 4:06 PM Question Answer Comments Code Status Discussion: Discussed Care Teams Gerentological Physiotherapist Relationship Specialty Start Date End Date Cory Small MD [address] [place] [address] PCP - General 02/11/08 Shadi Sinha MD [address] [facility] [place] [address] Surgery - Urology 08/31/24
== END 2024-11-26 13:18 | disposition home or self-care (01) ==
PROVIDERS: PCP Family Medicine; Visit Provider Orthopaedic Surgery
DX: Z96.651 Presence of right artificial knee joint (principal); Z51.89 Encounter for other specified aftercare
CPT/HCPCS: 97016; 97110; 97112; 97140; 97161

== ENCOUNTER 2025-06-14 06:01 | Day surgery (SDC) | payer MEDICARE, BC, SELFPAY ==
[2025-06-14] VITALS (17 sets, daily range): BP systolic 105–136; BP diastolic 62–94; PULSE 41–62; RESP 16–20; TEMP 36.3–36.6; O2SAT 91–96; BMI 33.4
[2025-06-14] MEDS: SODIUM CHLORIDE 0.9 % (FLUSH) 10 ML SYRINGE IVF (06:29)
[2025-06-14] MEDS: LACTATED RINGERS 1000 ML 1,000 ML 100 ML IV (06:29)
[2025-06-14] MEDS: MIDAZOLAM HCL 1 MG/ML inj IVP (07:05)
--- NOTE | 2025-06-14 07:09 | W.PM.H&PU ---
History & Physical Update History & Physical Update H&P Reviewed and patient assessed: No changes noted
--- NOTE | 2025-06-14 07:24 | SUR.PREOP ---
TIME?OUT:?05 PT/RN/MDA?VERIFICATION?OF?SURGICAL?SITE,?PROCEDURE,?AND?CONSENT OBTAINED?PRIOR?TO?INVASIVE?PROCEDURE.
[2025-06-14] MEDS: EPINEPHrine 1 MG in SODIUM CHLORIDE IRRIG SOLUTION 3,000 ML 3001 MG IRRIGATION ×3 (07:45→09:07)
--- NOTE | 2025-06-14 09:38 | P.ANES_ITS ---
Anesthesia Charges Start Date/Time Anesthesia Start Date: 06/14/25 Anesthesia Start Time: 07:14 Stop Date/Time Anesthesia Stop Date: 06/14/25 Anesthesia Stop Time: 09:38 Summary Extremes of Age - Over 70 or under 1: MDA Coding CPT Codes CPT Codes: ANESTH SURGERY OF SHOULDER - 88927 ([id number]) P2 - PATIENT W/MILD SYST DISEASE, QK - SECURITY SYSTEM ANALYST 2-4 CNCRNT ANES PROC, QX - BEHAVIORAL ASSISTANT SVC W/ MD MED DIRECTION Additional Codes: Summary - Extremes of Age - Over 70 or under 1: MDA ([id number])
--- NOTE | 2025-06-14 09:38 | P.NB_ITS ---
Nerve Block Nerve Block Time Seen by Provider: 07:05 Date Seen: 06/14/25 Type of block requested by surgeon for post-operative analgesia: supraclavicular Side: left Time out performed: Yes Verification of patient name: Yes Verification of date of : Yes Site marking: site marked Name of person performing procedure: Mario Alberto Continuous monitoring Was continuous monitoring of O2 sat, B/P, reading efficiency course director, recorded every 15 minutes?: Yes Procedure Checklist: sterile prep, needles and gloves Ultrasound guided. Images saved: Yes Medications given in 5ml increments after negative aspiration: Ropivicaine %: 0.5 mL: 20 Needle gauge: 22 Precedex (mcg): 25 Patient tolerated procedure well: Yes Block Charges Block Charge (with Pro Fee): Brachial Plexus Use of Ultrasound Machine for Block: Yes- US Guidance/pain block
--- NOTE | 2025-06-14 09:38 | W.ANESCHARGE ---
Anesthesia Charges Start Date/Time Anesthesia Start Date: 06/14/25 Anesthesia Start Time: 07:14 Stop Date/Time Anesthesia Stop Date: 06/14/25 Anesthesia Stop Time: 09:38 Summary Extremes of Age - Over 70 or under 1: MDA Coding CPT Codes CPT Codes: ANESTH SURGERY OF SHOULDER - 75424 ([id number]) P2 - PATIENT W/MILD SYST DISEASE, QK - EXECUTIVE LEGAL SECRETARY 2-4 CNCRNT ANES PROC, QX - ROLLER MAKER SVC W/ MD MED DIRECTION Additional Codes: Summary - Extremes of Age - Over 70 or under 1: MDA ([id number])
--- NOTE | 2025-06-14 09:50 | P.ORPRC_ITS ---
Procedure Note Date of procedure: 06/14/25 Procedure: PREOPERATIVE DIAGNOSES: 1. Left shoulder rotator cuff tear - upper border subscapularis and near full- thickness supraspinatus 2. Left shoulder long head of biceps partial-thickness tearing and dislocation of the bicipital groove. 3. Left shoulder anterior labral tearing 4. Left shoulder subacromial impingement syndrome. POSTOPERATIVE DIAGNOSES: 1. Left shoulder rotator cuff tear - upper border subscapularis and near full- thickness supraspinatus 2. Left shoulder long head of biceps partial-thickness tearing and dislocation of the bicipital groove. 3. Left shoulder anterior labral tearing 4. Left shoulder subacromial impingement syndrome. NAME OF OPERATION: 1. Left shoulder arthroscopic rotator cuff repair - upper border subscapularis and high-grade partial-thickness supraspinatus 2. Left shoulder arthroscopic long head of the biceps tenodesis 3. Left shoulder arthroscopic limited glenohumeral debridement. 4. Left shoulder arthroscopic bursectomy, subacromial decompression/partial acromioplasty. SURGEON: Frank Em MD MISSILE PAD MECHANIC: Bryant Edmonds PA-C. Of note, a skilled carpenter assistant was critical for this case to aide in patient positioning, suture manipulation, arm positioning, instrument positioning, and closure. ANESTHESIA: General plus preoperative supraclavicular block. EBL: 25 mL IMPLANTS: Arthrex 4.75 mm BioComposite SwiveLock suture anchor (x2); Arthrex 5.5 mm BioComposite corkscrew suture anchor (x1); Arthrex 5.5 mm BioComposite SwiveLock suture anchor (x2) COMPLICATIONS: None evident INDICATIONS: The patient is a pleasant, 75-year-old male who has experienced left shoulder pain that has been increasing in recent time. Physical exam and imaging were consistent with a rotator cuff tear. Given their findings, as well as the weakness and pain, and inadequate response to nonoperative management, recommendation was made for surgery. FINDINGS: Exam under anesthesia revealed stable shoulder with excellent range of motion. The diagnostic arthroscopy revealed relatively healthy articular cartilage glenohumeral joint. The Subscapularis tendon was torn from its upper border with moderate retraction. The long head of the biceps tendon was torn in a partial-thickness manner as well as dislocated out of the bicipital groove. The superior rotator cuff tendon was found to be torn and high-grade partial-thickness manner through majority of the supraspinatus on the articular side. The bursal side had some very thin tissue still intact. The labrum was degeneratively frayed and torn in the anterior and superior aspects. No loose bodies were identified within the pouch or subscapularis recess. PROCEDURE: Following a thorough discussion of risks, benefits, and alternatives, consent was obtained and the left shoulder was marked. The patient was brought to the operating room and placed supine on the operating table. Induction of anesthesia was completed after preoperative supraclavicular block was administered in preop holding. Appropriate time out was performed identifying proper patient, site, and procedure. 2 g IV Ancef was administered within 1 hour of incision preoperatively. The left upper extremity was prepped and draped in the appropriate sterile fashion using ChloraPrep prep. This was after the patient was positioned in the beach chair with their head in neutral alignment and all bony prominences well padded. The shoulder was insufflated with 20mL of normal saline via an 18g spinal needle from a posterior approach. An 11 blade skin incision allowed a blunt trochar to be inserted and diagnostic arthroscopy to be performed with the findings as noted above. An anterior portal was established with an outside in technique. This allowed the probe to be inserted and confirm the diagnostic arthroscopic findings. The shaver was then inserted and allowed debridement of the anterior and superior labrum. Additionally, the long of the biceps was released from the bicipital tuberosity for arthroscopic tenodesis. The biceps was captured the FiberLink in a luggage tag fashion and 2 more passes were made distal to this to achieve good holding power. This suture was dunked into the SwiveLock used to secure the subscapularis and the lesser tuberosity for the tenodesis completion. The biceps stump was debrided with a shaver. Following this, the upper border subscapularis was repaired after debriding the lesser tuberosity with the shaver and [place] cautery. Subscapularis was captured in horizontal mattress fashion with a fiber tape suture. The tails were brought to a single anchor in the lesser tuberosity with excellent reapproximation of the subscap tendon and good excursion/tension. Thereafter, the subacromial space was entered. Here, a complete bursectomy and partial acromioplasty/subacromial decompression was performed with a combination of radiofrequency ablator, the shaver, and a 5.5 mm bur. Further inspection of the supraspinatus and infraspinatus rotator cuff was performed. This identified the tear as noted above. The margins of the tear were debrided, and the greater tuberosity was debrided with a combination of the [place] cautery, shaver, and bur on reverse setting. After gentle decortication, a speed bridge configuration was planned. 2 medial anchors were placed (a corkscrew in the anteromedial position with all 4 tails passed independently and eventually tied with a tails passed to a lateral anchor, but also a SwiveLock in the posterior medial position with the FiberTapes passed independently. The tails were crossed and brought to lateral row anchors are (5.5 mm SwiveLock). The rotator cuff showed excellent reapproximation of the greater tuberosity with good security upon probing. Prior to anchor electric truck driver removal, the eyelet sutures were tugged on for each anchor and found that the anchor had excellent stability within the bone. The shoulder was placed through range of motion and found to be stable. The rotator cuff was re-probed and found to be stable. Instruments were removed. Excess fluid was drained, closure performed with 4-0 Monocryl and Steri-Strips. Dressings were applied. Sling was applied. The patient was awoken from anesthesia and transferred to the PACU in stable condition. A skilled carpenter assistant was critical for this case to aid in patient positioning, limb positioning, skill to manipulate arthroscopic instruments and camera, suture management, patient safety, and closure. PLAN: 1. Elbow, forearm, wrist and digit range of motion of operative extremity as tolerated. 2. Encouraged ice. 3. Oxycodone for pain as needed. 4. Sling at all times except for ROM and showering. 5. Follow up with PA visit in 1-2 weeks for wound check. Initiate physical therapy following that visit for passive range of motion. Initiate active assisted range of motion at 4-6 weeks. May do pendulums now.
--- NOTE | 2025-06-14 11:26 | P.ANES_ITS ---
Anesthesia Charges Start Date/Time Anesthesia Start Date: 06/14/25 Anesthesia Start Time: 07:14 Stop Date/Time Anesthesia Stop Date: 06/14/25 Anesthesia Stop Time: 09:38 Summary Extremes of Age - Over 70 or under 1: CHECK SERVICES CLERK Coding CPT Codes CPT Codes: ANESTH SURGERY OF SHOULDER - 78693 ([id number]) P2 - PATIENT W/MILD SYST DISEASE, QK - DOCTORATE OF CHIROPRACTIC 2-4 CNCRNT ANES PROC, QX - CHECK SERVICES CLERK SVC W/ MD MED DIRECTION Additional Codes: Summary - Extremes of Age - Over 70 or under 1: CHECK SERVICES CLERK ([id number])
--- NOTE | 2025-06-14 11:26 | W.ANESCHARGE ---
Anesthesia Charges Start Date/Time Anesthesia Start Date: 06/14/25 Anesthesia Start Time: 07:14 Stop Date/Time Anesthesia Stop Date: 06/14/25 Anesthesia Stop Time: 09:38 Summary Extremes of Age - Over 70 or under 1: PET HANDLER Coding CPT Codes CPT Codes: ANESTH SURGERY OF SHOULDER - 73466 ([id number]) P2 - PATIENT W/MILD SYST DISEASE, QK - LOBBY ATTENDANT 2-4 CNCRNT ANES PROC, QX - PET HANDLER SVC W/ MD MED DIRECTION Additional Codes: Summary - Extremes of Age - Over 70 or under 1: PET HANDLER ([id number])
== END 2025-06-14 12:28 | disposition home or self-care (01) ==
PROVIDERS: PCP Family Medicine; Visit Provider Orthopaedic Surgery Sports Medicine
PROC: (CPT 29805; principal; 2025-06-14 07:15)
DX: M75.102 Unspecified rotator cuff tear or rupture of left shoulder, not specified as traumatic (principal); S46.112A Strain of muscle, fascia and tendon of long head of biceps, left arm, initial encounter; S43.432A Superior glenoid labrum lesion of left shoulder, initial encounter; M75.42 Impingement syndrome of left shoulder; G89.18 Other acute postprocedural pain
CPT/HCPCS: 29827; 29828; 29826; 29822; 01630; 64415; 76942; 99100; C1713; J0169; J0690; J1100; J2250; J2405; J2704; J2710; J2795; J3010; J3490; J7120; L3670

== ENCOUNTER 2025-09-10 14:40 | Outpatient (CLI) | payer MEDICARE, BC, SELFPAY | END 2025-09-10 14:41 | disposition home or self-care (01) | LOC: CT 14:41 | PROVIDERS: PCP Family Medicine; Visit Provider Orthopaedic Surgery Sports Medicine | DX: M19.011 Primary osteoarthritis, right shoulder (principal); Z01.818 Encounter for other preprocedural examination | CPT/HCPCS: 73200 ==